=== PATIENT | female | born 1935 | race Caucasian/White ===

== ENCOUNTER → 2016-05-19 | Outpatient (CLI) | payer MEDICARE, BC ==
--- NOTE | 2016-05-19 10:03 | KCIC ---
PROCEDURE DEXA scan 05/19/2016 HISTORY Postmenopausal female. Height loss. TECHNIQUE DEXA of the left hip and left distal forearm was performed. DEXA of the lumbar spine was not performed due to the patient's lumbar fusion. FINDINGS The mean bone mineral density of the left hip is 0.589 grams/centimeters squared. This corresponds to a T-score of-2.9. This is consistent with mild osteoporosis. The mean bone mineral density of the left forearm is 0.351 grams/centimeters squared. This corresponds to a T-score of-4.2. This is consistent with severe osteoporosis. IMPRESSION 1. Mild osteoporosis of the left hip. 2. Severe osteoporosis of the left forearm. According to the world health organization (WHO): Normal: T score at or above -1 Osteopenia: T score between -1 and -2.5 Osteoporosis: T score at or below -2.5 Electronically signed by: Nicola Najera MD (May 19, 2016 10:02:24)
== END | disposition home or self-care (01) ==
LOC: KCIC DEXA 07:57
PROVIDERS: ATTEND Family Medicine
DX: M81.0 Age-related osteoporosis without current pathological fracture (principal); R29.890 Loss of height; M81.8 Other osteoporosis without current pathological fracture
CPT/HCPCS: 77080; 77081

== ENCOUNTER → 2016-07-28 | Outpatient (CLI) | payer MEDICARE, BC ==
--- NOTE | 2016-07-28 15:40 | KCIC ---
Two-view chest. Indication:Reason For StudyReason: SMOKER, LEFT ARM PAIN, 50 LB WEIGHT LOSS X 1 YEAR / Spl. Instructions: / History: FINDINGS: There is widening of the AP diameter of the chest compatible with obstructive lung disease. No pleural effusion or consolidation. Heart size is normal. Pulmonary vasculature is within normal limits. No pneumothorax. There are postsurgical changes of a median sternotomy. Impression: There is radiographic evidence of COPD with no evidence for heart failure or pneumonia. Electronically signed by: Idris Celestin (Jul 28, 2016 15:38:48)
== END | disposition home or self-care (01) ==
LOC: KCIC 14:50
PROVIDERS: ATTEND Nurse Practitioner Family
DX: J44.9 Chronic obstructive pulmonary disease, unspecified (principal); F17.200 Nicotine dependence, unspecified, uncomplicated; R63.4 Abnormal weight loss
CPT/HCPCS: 71020

== ENCOUNTER 2016-12-18 12:56 | Inpatient (IN) | payer MEDICARE, BC ==
[~2016-12-18] VITALS: Ht 144.8 cm; Wt 41.9 kg
[2016-12-18] MEDS ORDERED: methylPREDNISolone SOD SUCC PF 125 MG/2 ML VIAL. IV ONE (13:15)
[2016-12-18] MEDS ORDERED: ALBUTEROL SULFATE 2.5 MG/3 ML NEBU. NEB ONE (13:15)
[2016-12-18] MEDS ORDERED: BENZONATATE 100 MG CAPSULE. PO ONE (13:15)
[2016-12-18] MEDS ORDERED: IV NORMAL SALINE 1000ML BAG 1,000 ML IV ONE (13:15)
--- NOTE | 2016-12-18 13:17 | EKG ---
[facility] [address] [place] [address] Test Date: 2016-12-18 Test Time: 13:10:12 Pat Name: LISA GALVEZ Department: Room: Gender: Female Patient Safety Coordinator: : 1935 Requested By: BENTON JACK Order Number: [id number] Reading MD: Kevin Patel Measurements Intervals [place] Rate: 85 P: 63 NC: 162 QRS: 71 QRSD: 134 T: 62 QT: 380 QTc: 458 Interpretive Statements SINUS RHYTHM S1,S2,S3 PATTERN RIGHT BUNDLE BRANCH BLOCK ABNORMAL ECG RI6.01 No previous ECG available for comparison Electronically Signed On 12-18-2016 16:53:00 CDT by Kevin Patel
--- NOTE | 2016-12-18 13:23 | PHYS DOC ---
Adult General Chief Complaint Chief Complaint: SHORTNESS OF BREATH HPI HPI Patient is a 81 year old female presenting to the emergency department via EMS for evaluation of shortness of breath. She was at her primary care provider appointment for evaluation of a cough. She says that her grandson drove her and she was quite hypoxic at the doctor's office and they were concerned as she was somewhat confused as well. According to the paperwork that was sent with her she has a history of COPD. Patient says that she is on oxygen at home however according to EMS and her paperwork she is not. Patient is somewhat confused but according to EMS she is improving after getting a breathing treatment. On initial O2 saturation on room air here is 94%. She says that she has been coughing mostly nonproductive and she denies any fevers chills chest pain diaphoresis nausea vomiting or diarrhea. She is in no obvious distress with normal vital signs. Review of Systems Review of Systems Constitutional: Denies fever or chills [] Eyes: Denies change in visual acuity, redness, or eye pain [] HENT: Denies nasal congestion or sore throat [] Respiratory: + cough and shortness of breath [] Cardiovascular: No additional information not addressed in HPI [] GI: Denies abdominal pain, nausea, vomiting, bloody stools or diarrhea [] : Denies dysuria or hematuria [] Musculoskeletal: Denies back pain or joint pain [] Integument: Denies rash or skin lesions [] Neurologic: Denies headache, focal weakness or sensory changes [] Current Medications Current Medications Current Medications Medications (Trade) Dose Ordered Sig/Olivier Start Time Stop Time Status Last Admin Dose Admin Albuterol Sulfate (Ventolin Neb Soln) 5 mg 1X ONCE 12/18/16 13:15 12/18/16 14:03 DC 12/18/16 13:42 5 MG Benzonatate (Tessalon Perle) 100 mg 1X ONCE 12/18/16 13:15 12/18/16 14:03 DC 12/18/16 14:08 100 MG Methylprednisolone Sodium Succinate (SOLU-Medrol 125MG VIAL) 125 mg 1X ONCE 12/18/16 13:15 12/18/16 14:03 DC 12/18/16 14:07 125 MG Sodium Chloride 1,000 ml @ 1,000 mls/hr 1X ONCE 12/18/16 13:15 12/18/16 14:14 12/18/16 14:06 1,000 MLS/HR Physical Exam Physical Exam Constitutional: Well developed, well nourished, no acute distress, non-toxic appearance. [] HENT: Normocephalic, atraumatic, bilateral external ears normal, oropharynx moist, no oral exudates, nose normal. [] Eyes: PERRLA, EOMI, conjunctiva normal, no discharge. [] Neck: Normal range of motion, no tenderness, supple, no stridor. [] Cardiovascular:Heart rate regular rhythm, no murmur [] Lungs & Thorax: Bilateral breath sounds diminished with inspiratory and expiratory wheezing. Abdomen: Bowel sounds normal, soft, no tenderness, no masses, no pulsatile masses. [] Skin: Warm, dry, no erythema, no rash. [] Back: No tenderness, no CVA tenderness. [] Extremities: No tenderness, no cyanosis, no clubbing, ROM intact, no edema. [] Neurologic: Alert and oriented X 2, no focal deficits noted. [] Current Patient Data Vital Signs Vital Signs Date Time Temp Pulse Resp B/P (MAP) Pulse Ox O2 Delivery O2 Flow Rate FiO2 12/18/16 13:04 98.0 86 20 153/68 (96) 97 Nasal Cannula 5.0 98.0 Lab Values Laboratory Tests Test 12/18/16 13:01 12/18/16 13:40 O2 Saturation 85 % (92-99) L Arterial Blood pH 7.41 (7.35-7.45) Arterial Blood pCO2 at Patient Temp 39 mmHg (35-46) Arterial Blood pO2 at Patient Temp 49 mmHg (65-108) *L Arterial Blood HCO3 24 mmol/L (21-28) Arterial Blood Base Excess -1 mmol/L (-3-3) Oxyhemoglobin 84.4 % Methemoglobin 0.3 % (0.0-1.9) Carbon Monoxide, Quantitative 0.4 % (0.0-1.9) FiO2 21 White Blood Count 6.1 x10^3/uL (4.0-11.0) Red Blood Count 4.35 x10^6/uL (3.50-5.40) Hemoglobin 13.5 g/dL (12.0-15.5) Hematocrit 41.8 % (36.0-47.0) Mean Corpuscular Volume 96 fL (79-100) Mean Corpuscular Hemoglobin 31 pg (25-35) Mean Corpuscular Hemoglobin Concent 32 g/dL (31-37) Red Cell Distribution Width 13.3 % (11.5-14.5) Platelet Count 183 x10^3/uL (140-400) Neutrophils (%) (Auto) 64 % (31-73) Lymphocytes (%) (Auto) 14 % (24-48) L Monocytes (%) (Auto) 22 % (0-9) H Eosinophils (%) (Auto) 0 % (0-3) Basophils (%) (Auto) 0 % (0-3) Neutrophils # (Auto) 3.9 x10^3uL (1.8-7.7) Lymphocytes # (Auto) 0.8 x10^3/uL (1.0-4.8) L Monocytes # (Auto) 1.3 x10^3/uL (0.0-1.1) H Eosinophils # (Auto) 0.0 x10^3/uL (0.0-0.7) Basophils # (Auto) 0.0 x10^3/uL (0.0-0.2) Platelet Estimate Pending Prothrombin Time 14.7 SEC (11.7-14.0) H Prothrombin Time INR 1.2 (0.8-1.1) H PTT 31 SEC (24-38) Sodium Level 134 mmol/L (136-145) L Potassium Level 3.9 mmol/L (3.5-5.1) Chloride Level 99 mmol/L (98-107) Carbon Dioxide Level 29 mmol/L (21-32) Anion Gap 6 (6-14) Blood Urea Nitrogen 23 mg/dL (7-20) H Creatinine 0.9 mg/dL (0.6-1.0) Estimated GFR (Cockcroft-Gault) 59.9 BUN/Creatinine Ratio 26 (6-20) H Glucose Level 132 mg/dL (70-99) H Lactic Acid Level 1.5 mmol/L (0.4-2.0) Calcium Level 9.6 mg/dL (8.5-10.1) Magnesium Level 2.2 mg/dL (1.8-2.4) Total Bilirubin 0.7 mg/dL (0.2-1.0) Aspartate Amino Transferase (AST) 40 U/L (15-37) H Alanine Aminotransferase (ALT) 38 U/L (14-59) Alkaline Phosphatase 59 U/L (46-116) Troponin I Quantitative < 0.017 ng/mL (0.000-0.055) Total Protein 7.4 g/dL (6.4-8.2) Albumin 3.1 g/dL (3.4-5.0) L Albumin/Globulin Ratio 0.7 (1.0-1.7) L Laboratory Tests 12/18/16 13:40 Laboratory Tests 12/18/16 13:40 EKG EKG Sinus rhythm at 85 bpm with normal axis no obvious ST elevation or depression with inverted T waves in leads V3 and significant for a right bundle-branch block. Radiology/Procedures Radiology/Procedures Normal heart size normal mediastinum and no obvious free air pneumothorax or opacity however her lung rizo have diffuse interstitial fibrosis appearing. Course & Med Decision Making Course & Med Decision Making Patient is persistently hypoxic on room air with a PO2 of 49 and an oxygen saturation of 85% on room air. She is still short of breath and likely will require oxygen at home. Will admit for further breathing treatments steroids reassessment and treatment. Patient and grandson aware and agreeable with plan. Dragon Disclaimer Dragon Disclaimer This electronic medical record was generated, in whole or in part, using a voice recognition dictation system. Departure Departure Impression: Primary Impression: COPD exacerbation Additional Impressions: Hypoxia Elevated brain natriuretic peptide (BNP) level Disposition: 09 ADMITTED INPATIENT Admitting Physician: Paula Mccarthy Condition: STABLE Referrals: SIXTO COLLADO MD (PCP) Problem Qualifiers BENTON JACK DO Dec 18, 2016 13:23
[2016-12-18 13:33] LABS: BASE EXCESS COOX -1 mmol/L (-3-3); CARBON MONOXIDE 0.4 % (0.0-1.9); HCO3 COOX 24 mmol/L (21-28); METHEMOGLOBIN 0.3 % (0.0-1.9); OXYHEMOGLOBIN 84.4 %; PCO2 COOX 39 mmHg (35-46); PH COOX 7.41 (7.35-7.45); SAT O2 COOX 85 % (92-99); TOTAL HEMOGLOBIN 13.6 g/dL
[2016-12-18 13:38] LABS: PO2 COOX 49 mmHg (65-108)
[2016-12-18 13:39] LABS: FIO2 COOX 21
[2016-12-18] MEDS ORDERED: ONDANSETRON PF 4 MG/2 ML VIAL. IV PRN (13:45)
[2016-12-18 13:51] LABS: BASO % 0 % (0-3); EOS % 0 % (0-3); HEMATOCRIT 41.8 % (36.0-47.0); HEMOGLOBIN 13.5 g/dL (12.0-15.5); LYMPH # 0.8 x10^3/uL (1.0-4.8); LYMPH % 14 % (24-48); MEAN CORPUSCULAR HEMOGLOBIN 31 pg (25-35); MEAN CORPUSCULAR HGB CONC 32 g/dL (31-37); MEAN CORPUSCULAR VOLUME 96 fL (79-100); MONO % 22 % (0-9); NEUT % 64 % (31-73); PLATELET COUNT 183 x10^3/uL (140-400); RED BLOOD COUNT 4.35 x10^6/uL (3.50-5.40); RED CELL DISTRIBUTION WIDTH 13.3 % (11.5-14.5); WHITE BLOOD COUNT 6.1 x10^3/uL (4.0-11.0)
[2016-12-18 13:59] LABS: CALCIUM 9.6 mg/dL (8.5-10.1); CREATININE 0.9 mg/dL (0.6-1.0); GFR 59.9; POTASSIUM 3.9 mmol/L (3.5-5.1)
[2016-12-18 14:00] LABS: INR 1.2 (0.8-1.1); PROTHROMBIN TIME PATIENT 14.7 SEC (11.7-14.0)
[2016-12-18 14:08] LABS: ALBUMIN 3.1 g/dL (3.4-5.0); ALBUMIN/GLOBULIN RATIO 0.7 (1.0-1.7); MAGNESIUM 2.2 mg/dL (1.8-2.4); TOTAL BILIRUBIN 0.7 mg/dL (0.2-1.0); TOTAL PROTEIN 7.4 g/dL (6.4-8.2)
--- NOTE | 2016-12-18 14:14 | RAD ---
Portable chest, 12/18/2016: History: Cough, congestion, hypoxia Comparison is made to a study from 07/28/2016. There has been a previous median sternotomy. The heart size is normal. The pulmonary vascularity is now prominent. Increased interstitial markings have developed with prominence of the minor fissure on the right. No pleural fluid is seen. IMPRESSION: Vascular congestion has developed with interstitial prominence suggesting mild interstitial pulmonary edema. An interstitial form of pneumonia is less likely.
--- NOTE | 2016-12-18 14:48 | ACF ---
Admit Criteria Forms Admit Criteria Forms Admit Criteria Forms COPD Clinical Indications for Admission to Inpatient Care (Place 'X' for any and all applicable criteria): Admission is indicated for ANY ONE of the following (1)(2)(3): [ ]I. Acute exacerbation by high-risk comorbidity (e.g., pneumonia, dysrhythmia, heart failure, pleural effusion, pneumothorax) or severe underlying COPD (e.g., steroid dependent) [X ]II. Inpatient admission required rather than observation care (see Chronic Obstructive Pulmonary Disease: Observation Care) because of ANY ONE of the following: [X ]a) New or pre-existing signs or symptoms of COPD (eg, dyspnea or Tachypnea at rest or with minimal activity) that persist despite outpatient and observation care treatment [ ]b) New-onset hypoxemia (room air SaO2 less than 90%, PO2 less than 60 mm Hg (8.0 kPa)) that persists despite outpatient and observation care treatment [ ]c) Worsening of pre-existing hypoxemia (eg, new or increased requirement for supplemental oxygen to maintain oxygenation at baseline level) that persists despite outpatient and observation care treatment, with oxygen treatment needs performable only in acute inpatient setting [ ]d) Hypercarbia (PCO2 greater than 40 mm Hg (5.3 kPa))-induced respiratory acidosis (pH less than 7.35) that persists despite outpatient and observation care treatment [ ]e) Supplemental oxygen or respiratory treatments for over 24 hours that are performable only in acute inpatient setting [ ]f) Chest tube placement with active evacuation (e.g., suction, drainage) (5) [ ]g) Other condition, treatment or monitoring requiring inpatient admission [ ]III. Planned invasive surgical or diagnostic procedures requiring acute- care hospitalization [ ]IV. Acute respiratory failure (e.g., uncompensated hypercarbia, severe hypoxemia) [ ]V. Severe comorbid condition (e.g., severe steroid myopathy, acute vertebral fracture) that has acutely worsened pulmonary function [ ]. Confusion state, lethargy, obtundation, stupor or coma Extended stay beyond goal length of stay may be needed for (31)(32): [ ]a ) Respiratory Failure. [ ]b) Severe or persisting hypoxemia or hypercarbia [ ]c) Severe or persistent dyspnea [ ]d) Comorbidities (e.g. chronic heart failure, atrial fibrillation with rapid response, pneumonia) [ ]e) Malnutrition The original [employer] content created by [facility] has been revised. The portions of the content which have been revised are identified through the use of italic text or in bold, and [facility] has neither reviewed nor approved the modified material. All other unmodified content is copyright [facility]. Please see references footnoted in the original [facility] edition 2016 RAJEEV SANTOYO Dec 18, 2016 14:48
[2016-12-18 14:50] LABS: PLT ESTIMATE ADEQUATE (ADEQUATE); TOXIC GRANULATION PRESENT; TOXIC VACUOLATION PRESENT
[2016-12-18 15:00] VITALS: BP 141/65
[2016-12-18] MEDS ORDERED: SALIVA STIMULANT AGENT 44ML SPRAY BOTTLE. PO PRN ×2 (15:45→16:00)
--- NOTE | 2016-12-18 15:59 | PDOC1 ---
History and Physical Date of Admission Date of Admission DATE: 12/18/16 TIME: 15:51 Identification/Chief Complaint Chief Complaint dyspnea, cough, weakness Problems: Source Source: Caregiver (granddaughter), Chart review, Patient History of Present Illness History of Present Illness Patient is a 81 year old female admit from ER, acute shortness of breath, 1 day of marked symptoms, but she complains of over a week of dyspnea with progressive cough, cough productive of sputum. She was at Primary care today for symptoms, who called EMS, hypoxic inthe field and confused there, but she feels much improved here already, pulm tx and 02 placed, Sa02 in the field reported inthe 70s She reports a history of COPD, no recent exac. has nebs at home, but have not helped, she reports no prior need for 02 ABG showed sa02 85%, Pa02 49 Past Medical History Cardiovascular: HTN Pulmonary: COPD GI: No pertinent hx Musculoskeletal: low back pain, Muscle atrophy, Weakness Past Surgical History Past Surgical History: No pertinent history Social History Smoke: Quit ALCOHOL: none Drugs: None Current Problem List Problem List Problems Medical Problems: (1) COPD exacerbation Status: Acute (2) Elevated brain natriuretic peptide (BNP) level Status: Acute (3) Hypoxia Status: Acute Problems: Current Medications Current Medications Current Medications Sodium Chloride 1,000 ml @ 1,000 mls/hr 1X ONCE IV Last administered on 14:06; Start 12/18/16 at 13:15; Stop 12/18/16 at 14:14; Status DC Albuterol Sulfate (Ventolin Neb Soln) 5 mg 1X ONCE NEB Last administered on 13:42; Start 12/18/16 at 13:15; Stop 12/18/16 at 14:03; Status DC Methylprednisolone Sodium Succinate (SOLU-Medrol 125MG VIAL) 125 mg 1X ONCE IV Last administered on 12/18/16 14:07; Start 12/18/16 at 13:15; Stop 12/18/16 at 14:03; Status DC Benzonatate (Tessalon Perle) 100 mg 1X ONCE PO Last administered on 12/18/16 14:08; Start 12/18/16 at 13:15; Stop 12/18/16 at 14:03; Status DC Levofloxacin/ Dextrose 100 ml @ 100 mls/hr 1X ONCE IV Last administered on 14:07; Start 12/18/16 at 13:45; Stop 12/18/16 at 14:44; Status DC Ondansetron HCl (Zofran) 4 mg PRN Q8HRS PRN IV NAUSEA/VOMITING Last administered on 12/18/16 14:07; Start 12/18/16 at 13:45; Stop 12/19/16 at 13:44 Albuterol/ Ipratropium (Duoneb) 3 ml Q4HRS W/A NEB ; Start 12/18/16 at 18:00 Budesonide (Pulmicort) 0.5 mg RTBID NEB ; Start 12/18/16 at 20:00 Levofloxacin (Levaquin) 500 mg DAILY06 PO ; Start 12/18/16 at 15:00 Guaifenesin (Robitussin Dm) 10 ml PRN Q6HRS PRN PO COUGH; Start 12/18/16 at 14: 45 Benzonatate (Tessalon Perle) 100 mg PRN TID PRN PO cough; Start 12/18/16 at 14: 45 Saliva Substitute (Biotene Moisturizing Mouth) 2 spray PRN Q15MIN PRN PO DRY MOUTH; Start 12/18/16 at 15:45 Allergies Allergies: Coded Allergies: morphine (Verified Adverse Reaction, Intermediate, SYNCOPE , 12/18/16) ROS General: YES: Chills, Fatigue, Malaise, Appetite, No: Night Sweats, Other PSYCHOLOGICAL ROS: No: Anxiety, Behavioral Disorder, Concentration difficultie , Decreased libido, Depression, Disorientation, Hallucinations, Hostility, Irritablity, Memory difficulties, Mood Swings, Obsessive thoughts, Other Eyes: No Blurry vision, No Decreased vision, No Double vision, No Dry eyes, No Excessive tearing, No Eye Pain, No Itchy Eyes, No Loss of vision, No Photophobia , No Scotomata, No Uses contacts, No Uses glasses, No Other HEENT: YES: Nasal congestion, No: Heacaches, Visual Changes, Hearing change, Nasal discharge, Oral lesions , Sinus pain, Sore Throat, Epistaxis, Sneezing, Snoring, Tinnitus, Vertigo, Vocal changes, Other Respiratory: YES: Cough, SOB with excertion, Sputum Changes, Tachypnea, Wheezing, No: Hemoptysis, Orthopnea, Pleuritic Pain, Shortness of breath, Stridor, Other Cardiovascular: No Chest Pain, No Palpitations, No Orthopnea, No Paroxysmal Noc. Dyspnea, No Edema, No Lt Headedness, No Other Gastrointestinal: No Nausea, No Vomiting, No Abdominal Pain, No Diarrhea, No Constipation, No Melena, No Hematochezia, No Other Genitourinary: No Dysuria, No Frequency, No Incontinence, No Hematuria, No Retention, No Discharge, No Urgency, No Pain, No Flank Pain, No Other, No , No , No , No , No , No , No Musculoskeletal: No Gait Disturbance, No Joint Pain, No Joint Stiffness, No Joint Swelling, No Muscle Pain, No Muscular Weakness, No Pain In:, No Swelling In:, No Other Neurological: Yes Gait Disturbance (weakness), No Behavorial Changes, No Bowel/Bladder ControlChng, No Confusion, No Dizziness, No Headaches, No Impaired Coord/balance, No Memory Loss, No Numbness/ Tingling, No Seizures, No Speech Problems, No Tremors, No Visual Changes, No Weakness, No Other Skin: No Dry Skin, No Eczema, No Hair Changes, No Lumps, No Mole Changes, No Mottling, No Nail Changes, No Pruritus, No Rash, No Skin Lesion Changes, No Other, No Acne Physical Exam General: Alert, Oriented X3, Cooperative, mild distress HEENT: PERRLA, EOMI, Mucous membr. moist/pink Lungs: Clear to auscultation, Normal air movement Heart: RRR, no gallops, no murmurs Abdomen: Normal bowel sounds, Soft (very thin) Rectal Exam: not examined Extremities: No clubbing, No edema, Normal pulses, Other (muscle wasting) Skin: No breakdown, No significant lesion Neuro: Normal gait, Cranial nerves 3-12 NL Psych/Mental Status: Mood NL Vitals Vitals Vital Signs Date Time Temp Pulse Resp B/P (MAP) Pulse Ox O2 Delivery O2 Flow Rate FiO2 12/18/16 15:00 98.1 98 18 141/65 (90) 90 Nasal Cannula 3.0 98.1 Labs Labs Laboratory Tests Test 12/18/16 13:01 12/18/16 13:40 O2 Saturation 85 % (92-99) Arterial Blood pH 7.41 (7.35-7.45) Arterial Blood pCO2 at Patient Temp 39 mmHg (35-46) Arterial Blood pO2 at Patient Temp 49 mmHg (65-108) Arterial Blood HCO3 24 mmol/L (21-28) Arterial Blood Base Excess -1 mmol/L (-3-3) Oxyhemoglobin 84.4 % Methemoglobin 0.3 % (0.0-1.9) Carbon Monoxide, Quantitative 0.4 % (0.0-1.9) FiO2 21 White Blood Count 6.1 x10^3/uL (4.0-11.0) Red Blood Count 4.35 x10^6/uL (3.50-5.40) Hemoglobin 13.5 g/dL (12.0-15.5) Hematocrit 41.8 % (36.0-47.0) Mean Corpuscular Volume 96 fL (79-100) Mean Corpuscular Hemoglobin 31 pg (25-35) Mean Corpuscular Hemoglobin Concent 32 g/dL (31-37) Red Cell Distribution Width 13.3 % (11.5-14.5) Platelet Count 183 x10^3/uL (140-400) Neutrophils (%) (Auto) 64 % (31-73) Lymphocytes (%) (Auto) 14 % (24-48) Monocytes (%) (Auto) 22 % (0-9) Eosinophils (%) (Auto) 0 % (0-3) Basophils (%) (Auto) 0 % (0-3) Neutrophils # (Auto) 3.9 x10^3uL (1.8-7.7) Lymphocytes # (Auto) 0.8 x10^3/uL (1.0-4.8) Monocytes # (Auto) 1.3 x10^3/uL (0.0-1.1) Eosinophils # (Auto) 0.0 x10^3/uL (0.0-0.7) Basophils # (Auto) 0.0 x10^3/uL (0.0-0.2) Segmented Neutrophils % 37 % (35-66) Band Neutrophils % 33 % (0-9) Lymphocytes % 15 % (24-48) Monocytes % 14 % (0-10) Metamyelocytes % 1 % (0-0) Toxic Granulation Present Toxic Vacuolation Present Platelet Estimate Adequate (ADEQUATE) Large Platelets Present Prothrombin Time 14.7 SEC (11.7-14.0) Prothromb Time International Ratio 1.2 (0.8-1.1) Activated Partial Thromboplast Time 31 SEC (24-38) Sodium Level 134 mmol/L (136-145) Potassium Level 3.9 mmol/L (3.5-5.1) Chloride Level 99 mmol/L (98-107) Carbon Dioxide Level 29 mmol/L (21-32) Anion Gap 6 (6-14) Blood Urea Nitrogen 23 mg/dL (7-20) Creatinine 0.9 mg/dL (0.6-1.0) Estimated GFR (Cockcroft-Gault) 59.9 BUN/Creatinine Ratio 26 (6-20) Glucose Level 132 mg/dL (70-99) Lactic Acid Level 1.5 mmol/L (0.4-2.0) Calcium Level 9.6 mg/dL (8.5-10.1) Magnesium Level 2.2 mg/dL (1.8-2.4) Total Bilirubin 0.7 mg/dL (0.2-1.0) Aspartate Amino Transf (AST/SGOT) 40 U/L (15-37) Alanine Aminotransferase (ALT/SGPT) 38 U/L (14-59) Alkaline Phosphatase 59 U/L (46-116) Troponin I Quantitative < 0.017 ng/mL (0.000-0.055) XL-Npe-X-Type Natriuretic Peptide 617 pg/mL (0-449) Total Protein 7.4 g/dL (6.4-8.2) Albumin 3.1 g/dL (3.4-5.0) Albumin/Globulin Ratio 0.7 (1.0-1.7) Laboratory Tests Test 12/18/16 13:01 12/18/16 13:40 O2 Saturation 85 % (92-99) Arterial Blood pH 7.41 (7.35-7.45) Arterial Blood pCO2 at Patient Temp 39 mmHg (35-46) Arterial Blood pO2 at Patient Temp 49 mmHg (65-108) Arterial Blood HCO3 24 mmol/L (21-28) Arterial Blood Base Excess -1 mmol/L (-3-3) Oxyhemoglobin 84.4 % Methemoglobin 0.3 % (0.0-1.9) Carbon Monoxide, Quantitative 0.4 % (0.0-1.9) FiO2 21 White Blood Count 6.1 x10^3/uL (4.0-11.0) Red Blood Count 4.35 x10^6/uL (3.50-5.40) Hemoglobin 13.5 g/dL (12.0-15.5) Hematocrit 41.8 % (36.0-47.0) Mean Corpuscular Volume 96 fL (79-100) Mean Corpuscular Hemoglobin 31 pg (25-35) Mean Corpuscular Hemoglobin Concent 32 g/dL (31-37) Red Cell Distribution Width 13.3 % (11.5-14.5) Platelet Count 183 x10^3/uL (140-400) Neutrophils (%) (Auto) 64 % (31-73) Lymphocytes (%) (Auto) 14 % (24-48) Monocytes (%) (Auto) 22 % (0-9) Eosinophils (%) (Auto) 0 % (0-3) Basophils (%) (Auto) 0 % (0-3) Neutrophils # (Auto) 3.9 x10^3uL (1.8-7.7) Lymphocytes # (Auto) 0.8 x10^3/uL (1.0-4.8) Monocytes # (Auto) 1.3 x10^3/uL (0.0-1.1) Eosinophils # (Auto) 0.0 x10^3/uL (0.0-0.7) Basophils # (Auto) 0.0 x10^3/uL (0.0-0.2) Segmented Neutrophils % 37 % (35-66) Band Neutrophils % 33 % (0-9) Lymphocytes % 15 % (24-48) Monocytes % 14 % (0-10) Metamyelocytes % 1 % (0-0) Toxic Granulation Present Toxic Vacuolation Present Platelet Estimate Adequate (ADEQUATE) Large Platelets Present Prothrombin Time 14.7 SEC (11.7-14.0) Prothromb Time International Ratio 1.2 (0.8-1.1) Activated Partial Thromboplast Time 31 SEC (24-38) Sodium Level 134 mmol/L (136-145) Potassium Level 3.9 mmol/L (3.5-5.1) Chloride Level 99 mmol/L (98-107) Carbon Dioxide Level 29 mmol/L (21-32) Anion Gap 6 (6-14) Blood Urea Nitrogen 23 mg/dL (7-20) Creatinine 0.9 mg/dL (0.6-1.0) Estimated GFR (Cockcroft-Gault) 59.9 BUN/Creatinine Ratio 26 (6-20) Glucose Level 132 mg/dL (70-99) Lactic Acid Level 1.5 mmol/L (0.4-2.0) Calcium Level 9.6 mg/dL (8.5-10.1) Magnesium Level 2.2 mg/dL (1.8-2.4) Total Bilirubin 0.7 mg/dL (0.2-1.0) Aspartate Amino Transf (AST/SGOT) 40 U/L (15-37) Alanine Aminotransferase (ALT/SGPT) 38 U/L (14-59) Alkaline Phosphatase 59 U/L (46-116) Troponin I Quantitative < 0.017 ng/mL (0.000-0.055) KN-Jfi-R-Type Natriuretic Peptide 617 pg/mL (0-449) Total Protein 7.4 g/dL (6.4-8.2) Albumin 3.1 g/dL (3.4-5.0) Albumin/Globulin Ratio 0.7 (1.0-1.7) VTE Prophylaxis Ordered VTE Prophylaxis Devices: No VTE Pharmacological Prophylaxi: Yes Assessment/Plan Assessment/Plan Acute hypoxic respiratory failure chronic hypercarbia COPD with acute bronchitis, sputum, dyspnea, on , PULM consult, steroids, nebs abx check echo for completeness mild/moderate malnutrition, BMI < 17 weakness/debility, PT and OT xerostomia, biotene CHRISTIANO MAGAÑA MD Dec 18, 2016 15:59
[2016-12-18 16:02] VITALS: BP 141/65
[2016-12-18] MEDS: IPRATRPIUM/ALBUTEROL 0.5/2.5MG 3 ML NEBU. NEB SCH ×2 (16:15→19:52)
[2016-12-18] MEDS ORDERED: TIOT18CA IH (16:16)
[2016-12-18] MEDS ORDERED: SIMV40TA3 PO (16:16)
[2016-12-18] MEDS ORDERED: LEVO75TA5 PO (16:16)
[2016-12-18] MEDS ORDERED: ALEN70TA3 PO (16:16)
[2016-12-18] MEDS ORDERED: BUDE10.2 IH (16:16)
[2016-12-18] MEDS: ENOXAPARIN 30 MG/0.3 ML SYRINGE. SQ SCH (16:44)
--- NOTE | 2016-12-18 16:59 | CARD ---
APPROVED REPORT EXAM: Two-dimensional and M-mode echocardiogram with Doppler and color Doppler. Other Information Quality : Good INDICATION COPD Congestive Heart Failure 2D DIMENSIONS RVDd2.4 (2.9-3.5cm)Left Atrium(2D)2.7 (1.6-4.0cm) IVSd0.9 (0.7-1.1cm)Aortic Root(2D)2.0 (2.0-3.7cm) LVDd3.7 (3.9-5.9cm)LVOT Diameter1.9 (1.8-2.4cm) PWd0.8 (0.7-1.1cm)LVDs2.3 (2.5-4.0cm) FS (%) 30.0 %SV39.9 ml LVEF(%)60.0 (>50%) Aortic Valve AoV Peak Lemuel.101.7cm/sAoV VTI17.5cm AO Peak GR.4.1mmHgLVOT VTI 19.31cm AO Mean GR.2mmHgAVA (VTI)3.00cm2 Mitral Valve MV E Khmlgbdp24.9cm/sMV DECEL [id number] MV A Enyjeeys49.5cm/sE/A Ratio1.0 TDI Lateral E' P. V9.53cm/sMedial E' P. V6.24cm/s E/Lateral E'9.6E/Medial E'14.7 Tricuspid Valve TR P. Mplnyhqr145dx/sTR Peak Gr.31mmHg LEFT VENTRICLE The left ventricle is normal size. There is normal left ventricular wall thickness. The left ventricu lar systolic function is normal and the ejection fraction is within normal range. The Ejection Fracti on is 60-65%. There is normal LV segmental wall motion. Transmitral Doppler flow pattern is Grade I-a bnormal relaxation pattern. RIGHT VENTRICLE The right ventricle is normal size. The right ventricular systolic function is normal. ATRIA The left atrium size is normal. The right atrium size is normal. The interatrial septum is intact wit h no evidence for an atrial septal defect or patent foramen ovale as noted on 2-D or Doppler imaging. AORTIC VALVE The aortic valve is calcified but opens well. Doppler and Color Flow revealed no significant aortic r egurgitation. There is no significant aortic valvular stenosis. MITRAL VALVE The mitral valve is normal in structure and function. There is no evidence of mitral valve prolapse. There is no mitral valve stenosis. Doppler and Color-flow revealed eccentric mild mitral regurgitatio n. TRICUSPID VALVE The tricuspid valve is normal in structure and function. Doppler and Color Flow revealed mild tricusp id regurgitation. The PA pressure was estimated at 34 mmHg. There is no tricuspid valve stenosis. PULMONIC VALVE The pulmonary valve is normal in structure and function. Doppler and Color Flow revealed no pulmonic valvular regurgitation. There is no pulmonic valvular stenosis. GREAT VESSELS The aortic root is normal in size. The ascending aorta is normal in size. The IVC is normal in size a nd collapses >50% with inspiration. PERICARDIAL EFFUSION There is no evidence of significant pericardial effusion. Critical Notification Critical Value: No <Conclusion> The left ventricle is normal size. The left ventricular systolic function is normal and the ejection fraction is within normal range. The Ejection Fraction is 60-65%. There is no significant aortic valvular stenosis. Doppler and Color Flow revealed no significant aortic regurgitation. Doppler and Color-flow revealed eccentric mild mitral regurgitation. Doppler and Color Flow revealed mild tricuspid regurgitation. The PA pressure was estimated at 34 mmHg.
--- NOTE | 2016-12-18 17:40 | PDOC ---
PULMONARY PROGRESS NOTES Vitals Vital Signs Date Time Temp Pulse Resp B/P (MAP) Pulse Ox O2 Delivery O2 Flow Rate FiO2 12/18/16 16:17 91 Nasal Cannula 3.0 12/18/16 16:02 98.1 98 141/65 (90) 98.1 12/18/16 15:00 18 Labs Laboratory Tests Test 12/18/16 13:01 12/18/16 13:40 O2 Saturation 85 % (92-99) Arterial Blood pH 7.41 (7.35-7.45) Arterial Blood pCO2 at Patient Temp 39 mmHg (35-46) Arterial Blood pO2 at Patient Temp 49 mmHg (65-108) Arterial Blood HCO3 24 mmol/L (21-28) Arterial Blood Base Excess -1 mmol/L (-3-3) Oxyhemoglobin 84.4 % Methemoglobin 0.3 % (0.0-1.9) Carbon Monoxide, Quantitative 0.4 % (0.0-1.9) FiO2 21 White Blood Count 6.1 x10^3/uL (4.0-11.0) Red Blood Count 4.35 x10^6/uL (3.50-5.40) Hemoglobin 13.5 g/dL (12.0-15.5) Hematocrit 41.8 % (36.0-47.0) Mean Corpuscular Volume 96 fL (79-100) Mean Corpuscular Hemoglobin 31 pg (25-35) Mean Corpuscular Hemoglobin Concent 32 g/dL (31-37) Red Cell Distribution Width 13.3 % (11.5-14.5) Platelet Count 183 x10^3/uL (140-400) Neutrophils (%) (Auto) 64 % (31-73) Lymphocytes (%) (Auto) 14 % (24-48) Monocytes (%) (Auto) 22 % (0-9) Eosinophils (%) (Auto) 0 % (0-3) Basophils (%) (Auto) 0 % (0-3) Neutrophils # (Auto) 3.9 x10^3uL (1.8-7.7) Lymphocytes # (Auto) 0.8 x10^3/uL (1.0-4.8) Monocytes # (Auto) 1.3 x10^3/uL (0.0-1.1) Eosinophils # (Auto) 0.0 x10^3/uL (0.0-0.7) Basophils # (Auto) 0.0 x10^3/uL (0.0-0.2) Segmented Neutrophils % 37 % (35-66) Band Neutrophils % 33 % (0-9) Lymphocytes % 15 % (24-48) Monocytes % 14 % (0-10) Metamyelocytes % 1 % (0-0) Toxic Granulation Present Toxic Vacuolation Present Platelet Estimate Adequate (ADEQUATE) Large Platelets Present Prothrombin Time 14.7 SEC (11.7-14.0) Prothromb Time International Ratio 1.2 (0.8-1.1) Activated Partial Thromboplast Time 31 SEC (24-38) Sodium Level 134 mmol/L (136-145) Potassium Level 3.9 mmol/L (3.5-5.1) Chloride Level 99 mmol/L (98-107) Carbon Dioxide Level 29 mmol/L (21-32) Anion Gap 6 (6-14) Blood Urea Nitrogen 23 mg/dL (7-20) Creatinine 0.9 mg/dL (0.6-1.0) Estimated GFR (Cockcroft-Gault) 59.9 BUN/Creatinine Ratio 26 (6-20) Glucose Level 132 mg/dL (70-99) Lactic Acid Level 1.5 mmol/L (0.4-2.0) Calcium Level 9.6 mg/dL (8.5-10.1) Magnesium Level 2.2 mg/dL (1.8-2.4) Total Bilirubin 0.7 mg/dL (0.2-1.0) Aspartate Amino Transf (AST/SGOT) 40 U/L (15-37) Alanine Aminotransferase (ALT/SGPT) 38 U/L (14-59) Alkaline Phosphatase 59 U/L (46-116) Troponin I Quantitative < 0.017 ng/mL (0.000-0.055) BQ-Ndn-G-Type Natriuretic Peptide 617 pg/mL (0-449) Total Protein 7.4 g/dL (6.4-8.2) Albumin 3.1 g/dL (3.4-5.0) Albumin/Globulin Ratio 0.7 (1.0-1.7) Laboratory Tests Test 12/18/16 13:01 12/18/16 13:40 O2 Saturation 85 % (92-99) Arterial Blood pH 7.41 (7.35-7.45) Arterial Blood pCO2 at Patient Temp 39 mmHg (35-46) Arterial Blood pO2 at Patient Temp 49 mmHg (65-108) Arterial Blood HCO3 24 mmol/L (21-28) Arterial Blood Base Excess -1 mmol/L (-3-3) Oxyhemoglobin 84.4 % Methemoglobin 0.3 % (0.0-1.9) Carbon Monoxide, Quantitative 0.4 % (0.0-1.9) FiO2 21 White Blood Count 6.1 x10^3/uL (4.0-11.0) Red Blood Count 4.35 x10^6/uL (3.50-5.40) Hemoglobin 13.5 g/dL (12.0-15.5) Hematocrit 41.8 % (36.0-47.0) Mean Corpuscular Volume 96 fL (79-100) Mean Corpuscular Hemoglobin 31 pg (25-35) Mean Corpuscular Hemoglobin Concent 32 g/dL (31-37) Red Cell Distribution Width 13.3 % (11.5-14.5) Platelet Count 183 x10^3/uL (140-400) Neutrophils (%) (Auto) 64 % (31-73) Lymphocytes (%) (Auto) 14 % (24-48) Monocytes (%) (Auto) 22 % (0-9) Eosinophils (%) (Auto) 0 % (0-3) Basophils (%) (Auto) 0 % (0-3) Neutrophils # (Auto) 3.9 x10^3uL (1.8-7.7) Lymphocytes # (Auto) 0.8 x10^3/uL (1.0-4.8) Monocytes # (Auto) 1.3 x10^3/uL (0.0-1.1) Eosinophils # (Auto) 0.0 x10^3/uL (0.0-0.7) Basophils # (Auto) 0.0 x10^3/uL (0.0-0.2) Segmented Neutrophils % 37 % (35-66) Band Neutrophils % 33 % (0-9) Lymphocytes % 15 % (24-48) Monocytes % 14 % (0-10) Metamyelocytes % 1 % (0-0) Toxic Granulation Present Toxic Vacuolation Present Platelet Estimate Adequate (ADEQUATE) Large Platelets Present Prothrombin Time 14.7 SEC (11.7-14.0) Prothromb Time International Ratio 1.2 (0.8-1.1) Activated Partial Thromboplast Time 31 SEC (24-38) Sodium Level 134 mmol/L (136-145) Potassium Level 3.9 mmol/L (3.5-5.1) Chloride Level 99 mmol/L (98-107) Carbon Dioxide Level 29 mmol/L (21-32) Anion Gap 6 (6-14) Blood Urea Nitrogen 23 mg/dL (7-20) Creatinine 0.9 mg/dL (0.6-1.0) Estimated GFR (Cockcroft-Gault) 59.9 BUN/Creatinine Ratio 26 (6-20) Glucose Level 132 mg/dL (70-99) Lactic Acid Level 1.5 mmol/L (0.4-2.0) Calcium Level 9.6 mg/dL (8.5-10.1) Magnesium Level 2.2 mg/dL (1.8-2.4) Total Bilirubin 0.7 mg/dL (0.2-1.0) Aspartate Amino Transf (AST/SGOT) 40 U/L (15-37) Alanine Aminotransferase (ALT/SGPT) 38 U/L (14-59) Alkaline Phosphatase 59 U/L (46-116) Troponin I Quantitative < 0.017 ng/mL (0.000-0.055) CC-Mmg-Z-Type Natriuretic Peptide 617 pg/mL (0-449) Total Protein 7.4 g/dL (6.4-8.2) Albumin 3.1 g/dL (3.4-5.0) Albumin/Globulin Ratio 0.7 (1.0-1.7) Medications Active Scripts Medications Dose Route/Sig Max Daily Dose Days Date Category Symbicort 160-4.5 Mcg Inhaler (Budesonide/Formoterol Fumarate) 10.2 Gm Hfa.aer.ad 2 Puff IH BID 12/18/16 Reported Spiriva (Tiotropium Weidman) 18 Mcg Cap.w.dev 1 Cap IH DAILY 12/18/16 Reported Levothyroxine Sodium 75 Mcg Tablet 1 Tab PO DAILY 12/18/16 Reported Simvastatin 40 Mg Tablet 1 Tab PO QHS 12/18/16 Reported Fosamax (Alendronate Sodium) 70 Mg Tablet 1 Tab PO WEEKLY 12/18/16 Reported Impression . ACUTE HYPOXEMIC RESP FAILURE SUSPECT MOSTLY ACUTE PULMONARY EDEMA SEE ORDERS THANKS KATHIE WOOTEN MD Dec 18, 2016 17:39
[2016-12-18] MEDS ORDERED: FUROSEMIDE 40 MG TABLET. PO ONE (18:00)
[2016-12-18 18:50] LABS: FREE T4 1.25 ng/dL (0.76-1.46)
[2016-12-18 19:00] VITALS: BP 97/51
[2016-12-18] MEDS ORDERED: AMLO5TAB2 PO (19:00)
[2016-12-18] MEDS ORDERED: LISI40TA PO (19:00)
[2016-12-18] MEDS ORDERED: METO25TA9 PO (19:00)
[2016-12-18] MEDS ORDERED: RALO60TA PO (19:17)
[2016-12-18] MEDS: BUDESONIDE 0.5 MG/2 ML NEBU. NEB SCH (19:51)
[2016-12-18] MEDS: SIMVASTATIN 40 MG TABLET. PO SCH (21:30)
[2016-12-18] MEDS: guaiFENesin DM 200MG/20MG 10 ML SYRUP PO PRN (21:34)
[2016-12-18] MEDS: BENZONATATE 100 MG CAPSULE. PO PRN (21:34)
[2016-12-18 23:02] VITALS: BP 101/54
--- NOTE | 2016-12-19 00:31 | CONS ---
DATE OF CONSULTATION: 12/18/2016 ATTENDING PHYSICIAN: Paula Mccarthy M.D. REASON FOR CONSULTATION: The patient is seen in pulmonary consultation at the request of Dr. Mccarthy for acute respiratory failure, abnormal chest x-ray. HISTORY OF PRESENT ILLNESS: The patient is an 81-year-old who has been feeling ill for the past week or so, increasing shortness of breath, unable to lay down flat, coughing, mostly nonproductive. She states that 3 days ago she felt bad to the point she had poor appetite. She presents with the above complaint. No fever, chills or night sweats. She was found to have saturations of 70% on the field. She was severely hypoxic. She states that she feels so much better now that she has been treated. She has had previous congestive heart failure. She does not know if she takes Lasix. She does take lisinopril at home. She presented with a PaO2 of 49, pCO2 of 39, pH of 7.41 on room air. Chest x-ray was personally reviewed, there is bilateral pulmonary infiltrates compatible with CHF. PAST MEDICAL HISTORY: 1. Remarkable for coronary artery disease, status post coronary artery bypass grafting. 2. COPD, chronic bronchitic type. 3. Hypertension. 4. Muscular atrophy, weakness. PAST SURGICAL HISTORY: Status post coronary artery bypass grafting. SOCIAL HISTORY: She is currently not smoking, denies any alcohol. She does not wear oxygen at home. REVIEW OF SYSTEMS: As indicated above, otherwise a 10-point system was reviewed and negative. FAMILY HISTORY: Noncontributory in this age group. ALLERGIES: TO MORPHINE. PHYSICAL EXAMINATION: VITAL SIGNS: Stable. O2 saturation currently on 3 liters was 91-97%. HEENT: Eyes: The sclerae were nonicteric. NECK: Jugular venous distention was not elevated. No lymphadenopathy. CHEST: Full expansion. LUNGS: Crackles in the bases. No wheezes. CARDIOVASCULAR: Regular rate and rhythm with S1 and S2; no S3. ABDOMEN: Soft, nontender, nondistended. EXTREMITIES: No clubbing, cyanosis or pitting edema. NEUROLOGIC: The patient was awake, alert, following commands. A detailed neuro exam was not performed. LABORATORY AND IMAGING DATA: Reviewed. White count was normal. Hemoglobin and hematocrit were noted. INR was 1.2. Electrolytes were noted. BNP was elevated. Chest x-ray as indicated above. IMPRESSION: 1. Acute hypoxemic respiratory failure secondary to acute congestive heart failure. 2. Acute congestive heart failure. 3. Mild acute exacerbation of chronic obstructive pulmonary disease. 4. Doubt pneumonia. 5. Possible dysphagia and minimal aspiration. 6. Iwsm-jv-vcskasgz protein malnutrition, present upon admission. PLAN: 1. Recommend diuresis. 2. Repeat chest x-ray. 3. Continue steroids for now and Levaquin. 4. Speech eval. 5. A 6-minute walk prior to discharge. 6. Echocardiogram. I do appreciate the privilege in participating in the patient's care. KATHIE WOOTEN MD DR: ALBER/roger JOB#: [id number] / [id number]
[2016-12-19 03:00] VITALS: BP 92/48
[2016-12-19] MEDS: BENZONATATE 100 MG CAPSULE. PO PRN (04:37)
[2016-12-19] MEDS: guaiFENesin DM 200MG/20MG 10 ML SYRUP PO PRN ×2 (04:37→15:29)
[2016-12-19 05:20] LABS: BASO % 0 % (0-3); EOS % 0 % (0-3); HEMATOCRIT 35.7 % (36.0-47.0); HEMOGLOBIN 12.2 g/dL (12.0-15.5); LYMPH # 0.4 x10^3/uL (1.0-4.8); LYMPH % 10 % (24-48); MEAN CORPUSCULAR HEMOGLOBIN 32 pg (25-35); MEAN CORPUSCULAR HGB CONC 34 g/dL (31-37); MEAN CORPUSCULAR VOLUME 94 fL (79-100); MONO % 7 % (0-9); NEUT % 84 % (31-73); PLATELET COUNT 210 x10^3/uL (140-400); RED BLOOD COUNT 3.82 x10^6/uL (3.50-5.40); WHITE BLOOD COUNT 4.5 x10^3/uL (4.0-11.0)
[2016-12-19 05:22] LABS: CALCIUM 8.9 mg/dL (8.5-10.1); GFR 53.1
[2016-12-19] MEDS: LEVOTHYROXINE 75 MCG TABLET PO SCH (06:21)
--- NOTE | 2016-12-19 06:31 | PDOC ---
PULMONARY PROGRESS NOTES Subjective PT FEEL BETTER LESS SOA Vitals Vital Signs Date Time Temp Pulse Resp B/P (MAP) Pulse Ox O2 Delivery O2 Flow Rate FiO2 12/19/16 03:00 98.5 78 19 92/48 (63) 95 Nasal Cannula 3.0 98.5 ROS: No Nausea, No Chest Pain, No Abdominal Pain, No Increase Cough Lungs: Crackles Cardiovascular: S1, S2 Abdomen: Soft Neuro Exam: Alert Extremities: No Edema Skin: Warm Labs Laboratory Tests Test 12/18/16 13:01 12/18/16 13:40 12/19/16 04:00 O2 Saturation 85 % (92-99) Arterial Blood pH 7.41 (7.35-7.45) Arterial Blood pCO2 at Patient Temp 39 mmHg (35-46) Arterial Blood pO2 at Patient Temp 49 mmHg (65-108) Arterial Blood HCO3 24 mmol/L (21-28) Arterial Blood Base Excess -1 mmol/L (-3-3) Oxyhemoglobin 84.4 % Methemoglobin 0.3 % (0.0-1.9) Carbon Monoxide, Quantitative 0.4 % (0.0-1.9) FiO2 21 White Blood Count 6.1 x10^3/uL (4.0-11.0) 4.5 x10^3/uL (4.0-11.0) Red Blood Count 4.35 x10^6/uL (3.50-5.40) 3.82 x10^6/uL (3.50-5.40) Hemoglobin 13.5 g/dL (12.0-15.5) 12.2 g/dL (12.0-15.5) Hematocrit 41.8 % (36.0-47.0) 35.7 % (36.0-47.0) Mean Corpuscular Volume 96 fL (79-100) 94 fL (79-100) Mean Corpuscular Hemoglobin 31 pg (25-35) 32 pg (25-35) Mean Corpuscular Hemoglobin Concent 32 g/dL (31-37) 34 g/dL (31-37) Red Cell Distribution Width 13.3 % (11.5-14.5) 13.0 % (11.5-14.5) Platelet Count 183 x10^3/uL (140-400) 210 x10^3/uL (140-400) Neutrophils (%) (Auto) 64 % (31-73) 84 % (31-73) Lymphocytes (%) (Auto) 14 % (24-48) 10 % (24-48) Monocytes (%) (Auto) 22 % (0-9) 7 % (0-9) Eosinophils (%) (Auto) 0 % (0-3) 0 % (0-3) Basophils (%) (Auto) 0 % (0-3) 0 % (0-3) Neutrophils # (Auto) 3.9 x10^3uL (1.8-7.7) 3.8 x10^3uL (1.8-7.7) Lymphocytes # (Auto) 0.8 x10^3/uL (1.0-4.8) 0.4 x10^3/uL (1.0-4.8) Monocytes # (Auto) 1.3 x10^3/uL (0.0-1.1) 0.3 x10^3/uL (0.0-1.1) Eosinophils # (Auto) 0.0 x10^3/uL (0.0-0.7) 0.0 x10^3/uL (0.0-0.7) Basophils # (Auto) 0.0 x10^3/uL (0.0-0.2) 0.0 x10^3/uL (0.0-0.2) Segmented Neutrophils % 37 % (35-66) Band Neutrophils % 33 % (0-9) Lymphocytes % 15 % (24-48) Monocytes % 14 % (0-10) Metamyelocytes % 1 % (0-0) Toxic Granulation Present Toxic Vacuolation Present Platelet Estimate Adequate (ADEQUATE) Large Platelets Present Prothrombin Time 14.7 SEC (11.7-14.0) Prothromb Time International Ratio 1.2 (0.8-1.1) Activated Partial Thromboplast Time 31 SEC (24-38) Sodium Level 134 mmol/L (136-145) 136 mmol/L (136-145) Potassium Level 3.9 mmol/L (3.5-5.1) 4.0 mmol/L (3.5-5.1) Chloride Level 99 mmol/L (98-107) 102 mmol/L (98-107) Carbon Dioxide Level 29 mmol/L (21-32) 30 mmol/L (21-32) Anion Gap 6 (6-14) 4 (6-14) Blood Urea Nitrogen 23 mg/dL (7-20) 21 mg/dL (7-20) Creatinine 0.9 mg/dL (0.6-1.0) 1.0 mg/dL (0.6-1.0) Estimated GFR (Cockcroft-Gault) 59.9 53.1 BUN/Creatinine Ratio 26 (6-20) Glucose Level 132 mg/dL (70-99) 178 mg/dL (70-99) Lactic Acid Level 1.5 mmol/L (0.4-2.0) Calcium Level 9.6 mg/dL (8.5-10.1) 8.9 mg/dL (8.5-10.1) Magnesium Level 2.2 mg/dL (1.8-2.4) Total Bilirubin 0.7 mg/dL (0.2-1.0) Aspartate Amino Transf (AST/SGOT) 40 U/L (15-37) Alanine Aminotransferase (ALT/SGPT) 38 U/L (14-59) Alkaline Phosphatase 59 U/L (46-116) Troponin I Quantitative < 0.017 ng/mL (0.000-0.055) SM-Wmr-X-Type Natriuretic Peptide 617 pg/mL (0-449) Total Protein 7.4 g/dL (6.4-8.2) Albumin 3.1 g/dL (3.4-5.0) Albumin/Globulin Ratio 0.7 (1.0-1.7) Thyroid Stimulating Hormone (TSH) 1.710 uIU/mL (0.358-3.74) Free Thyroxine 1.25 ng/dL (0.76-1.46) Free Triiodothyronine (T3) pg/mL 1.07 pg/mL (2.18-3.98) Laboratory Tests Test 12/18/16 13:01 12/18/16 13:40 12/19/16 04:00 O2 Saturation 85 % (92-99) Arterial Blood pH 7.41 (7.35-7.45) Arterial Blood pCO2 at Patient Temp 39 mmHg (35-46) Arterial Blood pO2 at Patient Temp 49 mmHg (65-108) Arterial Blood HCO3 24 mmol/L (21-28) Arterial Blood Base Excess -1 mmol/L (-3-3) Oxyhemoglobin 84.4 % Methemoglobin 0.3 % (0.0-1.9) Carbon Monoxide, Quantitative 0.4 % (0.0-1.9) FiO2 21 White Blood Count 6.1 x10^3/uL (4.0-11.0) 4.5 x10^3/uL (4.0-11.0) Red Blood Count 4.35 x10^6/uL (3.50-5.40) 3.82 x10^6/uL (3.50-5.40) Hemoglobin 13.5 g/dL (12.0-15.5) 12.2 g/dL (12.0-15.5) Hematocrit 41.8 % (36.0-47.0) 35.7 % (36.0-47.0) Mean Corpuscular Volume 96 fL (79-100) 94 fL (79-100) Mean Corpuscular Hemoglobin 31 pg (25-35) 32 pg (25-35) Mean Corpuscular Hemoglobin Concent 32 g/dL (31-37) 34 g/dL (31-37) Red Cell Distribution Width 13.3 % (11.5-14.5) 13.0 % (11.5-14.5) Platelet Count 183 x10^3/uL (140-400) 210 x10^3/uL (140-400) Neutrophils (%) (Auto) 64 % (31-73) 84 % (31-73) Lymphocytes (%) (Auto) 14 % (24-48) 10 % (24-48) Monocytes (%) (Auto) 22 % (0-9) 7 % (0-9) Eosinophils (%) (Auto) 0 % (0-3) 0 % (0-3) Basophils (%) (Auto) 0 % (0-3) 0 % (0-3) Neutrophils # (Auto) 3.9 x10^3uL (1.8-7.7) 3.8 x10^3uL (1.8-7.7) Lymphocytes # (Auto) 0.8 x10^3/uL (1.0-4.8) 0.4 x10^3/uL (1.0-4.8) Monocytes # (Auto) 1.3 x10^3/uL (0.0-1.1) 0.3 x10^3/uL (0.0-1.1) Eosinophils # (Auto) 0.0 x10^3/uL (0.0-0.7) 0.0 x10^3/uL (0.0-0.7) Basophils # (Auto) 0.0 x10^3/uL (0.0-0.2) 0.0 x10^3/uL (0.0-0.2) Segmented Neutrophils % 37 % (35-66) Band Neutrophils % 33 % (0-9) Lymphocytes % 15 % (24-48) Monocytes % 14 % (0-10) Metamyelocytes % 1 % (0-0) Toxic Granulation Present Toxic Vacuolation Present Platelet Estimate Adequate (ADEQUATE) Large Platelets Present Prothrombin Time 14.7 SEC (11.7-14.0) Prothromb Time International Ratio 1.2 (0.8-1.1) Activated Partial Thromboplast Time 31 SEC (24-38) Sodium Level 134 mmol/L (136-145) 136 mmol/L (136-145) Potassium Level 3.9 mmol/L (3.5-5.1) 4.0 mmol/L (3.5-5.1) Chloride Level 99 mmol/L (98-107) 102 mmol/L (98-107) Carbon Dioxide Level 29 mmol/L (21-32) 30 mmol/L (21-32) Anion Gap 6 (6-14) 4 (6-14) Blood Urea Nitrogen 23 mg/dL (7-20) 21 mg/dL (7-20) Creatinine 0.9 mg/dL (0.6-1.0) 1.0 mg/dL (0.6-1.0) Estimated GFR (Cockcroft-Gault) 59.9 53.1 BUN/Creatinine Ratio 26 (6-20) Glucose Level 132 mg/dL (70-99) 178 mg/dL (70-99) Lactic Acid Level 1.5 mmol/L (0.4-2.0) Calcium Level 9.6 mg/dL (8.5-10.1) 8.9 mg/dL (8.5-10.1) Magnesium Level 2.2 mg/dL (1.8-2.4) Total Bilirubin 0.7 mg/dL (0.2-1.0) Aspartate Amino Transf (AST/SGOT) 40 U/L (15-37) Alanine Aminotransferase (ALT/SGPT) 38 U/L (14-59) Alkaline Phosphatase 59 U/L (46-116) Troponin I Quantitative < 0.017 ng/mL (0.000-0.055) BG-Jrx-C-Type Natriuretic Peptide 617 pg/mL (0-449) Total Protein 7.4 g/dL (6.4-8.2) Albumin 3.1 g/dL (3.4-5.0) Albumin/Globulin Ratio 0.7 (1.0-1.7) Thyroid Stimulating Hormone (TSH) 1.710 uIU/mL (0.358-3.74) Free Thyroxine 1.25 ng/dL (0.76-1.46) Free Triiodothyronine (T3) pg/mL 1.07 pg/mL (2.18-3.98) Medications Active Scripts Medications Dose Route/Sig Max Daily Dose Days Date Category Symbicort 160-4.5 Mcg Inhaler (Budesonide/Formoterol Fumarate) 10.2 Gm Hfa.aer.ad 2 Puff IH BID 12/18/16 Reported Spiriva (Tiotropium Gay) 18 Mcg Cap.w.dev 1 Cap IH DAILY 12/18/16 Reported Levothyroxine Sodium 75 Mcg Tablet 1 Tab PO DAILY 12/18/16 Reported Simvastatin 40 Mg Tablet 1 Tab PO QHS 12/18/16 Reported Fosamax (Alendronate Sodium) 70 Mg Tablet 1 Tab PO WEEKLY 12/18/16 Reported Impression . IMPRESSION: 1. Acute hypoxemic respiratory failure secondary to acute congestive heart failure. 2. Acute congestive heart failure. 3. Mild acute exacerbation of chronic obstructive pulmonary disease. 4. Doubt pneumonia. 5. Possible dysphagia and minimal aspiration. 6. Gbih-oc-zlxjysty protein malnutrition, present upon admission. ECHO <Conclusion> The left ventricle is normal size. The left ventricular systolic function is normal and the ejection fraction is within normal range. The Ejection Fraction is 60-65%. There is no significant aortic valvular stenosis. Doppler and Color Flow revealed no significant aortic regurgitation. Doppler and Color-flow revealed eccentric mild mitral regurgitation. Doppler and Color Flow revealed mild tricuspid regurgitation. The PA pressure was estimated at 34 mmHg. Plan . WILL REVIEW CXR IF IT CLEARS QUICKLY I WOULD FAVOR CHF 1. Recommend diuresis. 2. Repeat chest x-ray. 3. Continue steroids for now and Levaquin. 4. Speech eval. 5. A 6-minute walk prior to discharge. 6. Echocardiogram. REPORT NOTED KATHIE WOOTEN MD Dec 19, 2016 06:31
[2016-12-19 07:15] VITALS: BP 101/62
[2016-12-19] MEDS: IPRATRPIUM/ALBUTEROL 0.5/2.5MG 3 ML NEBU. NEB SCH ×5 (07:37→22:00)
[2016-12-19] MEDS: BUDESONIDE 0.5 MG/2 ML NEBU. NEB SCH ×2 (07:37→19:08)
[2016-12-19] MEDS: predniSONE 20 MG TABLET PO SCH (08:40)
[2016-12-19] MEDS: RALOXIFENE 60 MG TABLET. PO SCH (08:40)
--- NOTE | 2016-12-19 08:51 | PDOC2 ---
CARDIAC CONSULT DATE OF CONSULT Date of Consult DATE: 12/19/16 TIME: 08:45 REASON FOR CONSULT Reason for Consult: SOA: rule out cardiac REFERRING PHYSICIAN Referring Physician: Dr. Mccarthy SOURCE Source: Chart review, Patient HISTORY OF PRESENT ILLNESS HISTORY OF PRESENT ILLNESS This is an 81 yo female who presented with complaints of shortness of breath. Patient reports symptoms have been ongoing for the last 3-4 weeks. Has progressively worsened along with weakness/debility. Has also had non- productive cough and recent orthopnea. No LE edema. Denies any chest pain, palpitations, dizziness, diaphoresis, or nausea/vomiting. Was seen at PCP office yesterday. Was noted to be dyspneic and hypoxic. EMS was called and was transferred directly to [facility] for further evaluation and treatment. Does have an extensive cardiac history with bypass initially in 1993 with redo in 1997. Follows closely with Dr. Reddy of [facility]. Has follow up appointment scheduled for later this month. PAST MEDICAL HISTORY Cardiovascular: CAD, CHF, HTN, Hyperlipidemia, Other (PVD) Pulmonary: COPD GI: No pertinent hx Heme/Onc: No pertinent hx Hepatobiliary: No pertinent hx Psych: No pertinent hx Musculoskeletal: Osteoarthritis Rheumatologic: No pertinent hx Infectious disease: No pertinent hx ENT: No pertinent hx Renal/: No pertinent hx Endocrine: No pertinent hx, Hypothyroidism Dermatology: No pertinent hx PAST SURGICAL HISTORY Past Surgical History: Appendectomy, CABG, Hysterectomy, Other (back sx) FAMILY HISTORY Family History: Adopted SOCIAL HISTORY Smoke: Quit (6 weeks ago) ALCOHOL: none Drugs: None Lives: with Family CURRENT MEDICATIONS CURRENT MEDICATIONS Current Medications Medications (Trade) Dose Ordered Sig/Olivier Route PRN Reason Start Time Stop Time Status Last Admin Dose Admin Sodium Chloride 1,000 ml @ 1,000 mls/hr 1X ONCE IV 12/18/16 13:15 12/18/16 14:14 DC 12/18/16 14:06 Albuterol Sulfate (Ventolin Neb Soln) 5 mg 1X ONCE NEB 12/18/16 13:15 12/18/16 14:03 DC 12/18/16 13:42 Methylprednisolone Sodium Succinate (SOLU-Medrol 125MG VIAL) 125 mg 1X ONCE IV 12/18/16 13:15 12/18/16 14:03 DC 12/18/16 14:07 Benzonatate (Tessalon Perle) 100 mg 1X ONCE PO 12/18/16 13:15 12/18/16 14:03 DC 12/18/16 14:08 Levofloxacin/ Dextrose 100 ml @ 100 mls/hr 1X ONCE IV 12/18/16 13:45 12/18/16 14:44 DC 12/18/16 14:07 Ondansetron HCl (Zofran) 4 mg PRN Q8HRS PRN IV NAUSEA/VOMITING 12/18/16 13:45 12/19/16 13:44 12/18/16 14:07 Albuterol/ Ipratropium (Duoneb) 3 ml Q4HRS W/A NEB 12/18/16 18:00 12/19/16 07:37 Budesonide (Pulmicort) 0.5 mg RTBID NEB 12/18/16 20:00 12/19/16 07:37 Levofloxacin (Levaquin) 500 mg DAILY06 PO 12/18/16 15:00 12/19/16 06:21 Guaifenesin (Robitussin Dm) 10 ml PRN Q6HRS PRN PO COUGH 12/18/16 14:45 12/19/16 04:37 Benzonatate (Tessalon Perle) 100 mg PRN TID PRN PO cough 12/18/16 14:45 12/19/16 04:37 Prednisone (Prednisone) 40 mg DAILY PO 12/19/16 09:00 12/19/16 08:40 Enoxaparin Sodium (Lovenox 30mg Syringe) 30 mg Q24H SQ 12/18/16 18:00 12/18/16 16:44 Furosemide (Lasix) 40 mg 1X ONCE PO 12/18/16 18:00 12/18/16 18:01 DC 12/18/16 18:07 Levothyroxine Sodium (Synthroid) 75 mcg DAILY07 PO 12/19/16 07:00 12/19/16 06:21 Simvastatin (Zocor) 40 mg QHS PO 12/18/16 21:00 12/18/16 21:30 Raloxifene HCl (Evista) 60 mg DAILY PO 12/19/16 09:00 12/19/16 08:40 ALLERGIES ALLERGIES: Coded Allergies: No Known Medication Allergies (Verified Allergy, Unknown, 12/18/16) morphine (Verified Adverse Reaction, Intermediate, SYNCOPE , 12/18/16) ROS Review of System 14 point ROS conducted with pertinent positives noted above in HPI. PHYSICAL EXAM General: Alert, Oriented X3, Cooperative, No acute distress HEENT: Atraumatic, Mucous membr. moist/pink Lungs: Normal air movement, Other (diffuse fine crackles ) Heart: Regular rate, Normal S1, Normal S2 Abdomen: Soft, No tenderness Extremities: No edema, Other (1+ bilateral DP pulses) Skin: No significant lesion Neuro: Normal speech, Sensation intact Psych/Mental Status: Mental status NL, Mood NL MUSCULOSKELETAL: Osteoarthritic changes both hands VITALS VITALS Vital Signs Date Time Temp Pulse Resp B/P (MAP) Pulse Ox O2 Delivery O2 Flow Rate FiO2 12/19/16 07:38 96 Nasal Cannula 3.0 12/19/16 07:15 97.7 71 18 101/62 (75) 97.7 LABS Lab: Laboratory Tests Test 12/18/16 13:01 12/18/16 13:40 12/19/16 04:00 O2 Saturation 85 % (92-99) Arterial Blood pH 7.41 (7.35-7.45) Arterial Blood pCO2 at Patient Temp 39 mmHg (35-46) Arterial Blood pO2 at Patient Temp 49 mmHg (65-108) Arterial Blood HCO3 24 mmol/L (21-28) Arterial Blood Base Excess -1 mmol/L (-3-3) Oxyhemoglobin 84.4 % Methemoglobin 0.3 % (0.0-1.9) Carbon Monoxide, Quantitative 0.4 % (0.0-1.9) FiO2 21 White Blood Count 6.1 x10^3/uL (4.0-11.0) 4.5 x10^3/uL (4.0-11.0) Red Blood Count 4.35 x10^6/uL (3.50-5.40) 3.82 x10^6/uL (3.50-5.40) Hemoglobin 13.5 g/dL (12.0-15.5) 12.2 g/dL (12.0-15.5) Hematocrit 41.8 % (36.0-47.0) 35.7 % (36.0-47.0) Mean Corpuscular Volume 96 fL (79-100) 94 fL (79-100) Mean Corpuscular Hemoglobin 31 pg (25-35) 32 pg (25-35) Mean Corpuscular Hemoglobin Concent 32 g/dL (31-37) 34 g/dL (31-37) Red Cell Distribution Width 13.3 % (11.5-14.5) 13.0 % (11.5-14.5) Platelet Count 183 x10^3/uL (140-400) 210 x10^3/uL (140-400) Neutrophils (%) (Auto) 64 % (31-73) 84 % (31-73) Lymphocytes (%) (Auto) 14 % (24-48) 10 % (24-48) Monocytes (%) (Auto) 22 % (0-9) 7 % (0-9) Eosinophils (%) (Auto) 0 % (0-3) 0 % (0-3) Basophils (%) (Auto) 0 % (0-3) 0 % (0-3) Neutrophils # (Auto) 3.9 x10^3uL (1.8-7.7) 3.8 x10^3uL (1.8-7.7) Lymphocytes # (Auto) 0.8 x10^3/uL (1.0-4.8) 0.4 x10^3/uL (1.0-4.8) Monocytes # (Auto) 1.3 x10^3/uL (0.0-1.1) 0.3 x10^3/uL (0.0-1.1) Eosinophils # (Auto) 0.0 x10^3/uL (0.0-0.7) 0.0 x10^3/uL (0.0-0.7) Basophils # (Auto) 0.0 x10^3/uL (0.0-0.2) 0.0 x10^3/uL (0.0-0.2) Segmented Neutrophils % 37 % (35-66) Band Neutrophils % 33 % (0-9) Lymphocytes % 15 % (24-48) Monocytes % 14 % (0-10) Metamyelocytes % 1 % (0-0) Toxic Granulation Present Toxic Vacuolation Present Platelet Estimate Adequate (ADEQUATE) Large Platelets Present Prothrombin Time 14.7 SEC (11.7-14.0) Prothromb Time International Ratio 1.2 (0.8-1.1) Activated Partial Thromboplast Time 31 SEC (24-38) Sodium Level 134 mmol/L (136-145) 136 mmol/L (136-145) Potassium Level 3.9 mmol/L (3.5-5.1) 4.0 mmol/L (3.5-5.1) Chloride Level 99 mmol/L (98-107) 102 mmol/L (98-107) Carbon Dioxide Level 29 mmol/L (21-32) 30 mmol/L (21-32) Anion Gap 6 (6-14) 4 (6-14) Blood Urea Nitrogen 23 mg/dL (7-20) 21 mg/dL (7-20) Creatinine 0.9 mg/dL (0.6-1.0) 1.0 mg/dL (0.6-1.0) Estimated GFR (Cockcroft-Gault) 59.9 53.1 BUN/Creatinine Ratio 26 (6-20) Glucose Level 132 mg/dL (70-99) 178 mg/dL (70-99) Lactic Acid Level 1.5 mmol/L (0.4-2.0) Calcium Level 9.6 mg/dL (8.5-10.1) 8.9 mg/dL (8.5-10.1) Magnesium Level 2.2 mg/dL (1.8-2.4) Total Bilirubin 0.7 mg/dL (0.2-1.0) Aspartate Amino Transf (AST/SGOT) 40 U/L (15-37) Alanine Aminotransferase (ALT/SGPT) 38 U/L (14-59) Alkaline Phosphatase 59 U/L (46-116) Troponin I Quantitative < 0.017 ng/mL (0.000-0.055) KF-Moe-R-Type Natriuretic Peptide 617 pg/mL (0-449) Total Protein 7.4 g/dL (6.4-8.2) Albumin 3.1 g/dL (3.4-5.0) Albumin/Globulin Ratio 0.7 (1.0-1.7) Thyroid Stimulating Hormone (TSH) 1.710 uIU/mL (0.358-3.74) Free Thyroxine 1.25 ng/dL (0.76-1.46) Free Triiodothyronine (T3) pg/mL 1.07 pg/mL (2.18-3.98) ECHOCARDIOGRAM ECHOCARDIOGRAM <Conclusion> The left ventricle is normal size. The left ventricular systolic function is normal and the ejection fraction is within normal range. The Ejection Fraction is 60-65%. There is no significant aortic valvular stenosis. Doppler and Color Flow revealed no significant aortic regurgitation. Doppler and Color-flow revealed eccentric mild mitral regurgitation. Doppler and Color Flow revealed mild tricuspid regurgitation. The PA pressure was estimated at 34 mmHg. DATE: 12/18/16 1658 ASSESSMENT/PLAN ASSESSMENT/PLAN 1. Acute on chronic diastolic heart failure; NT pro BNP mildly elevated. CXR with pulmonary edema versus PNA. Echo revealed preserved LV function- no WMA present. Improved with Lasix. continue mild diuresis as BP allows. 2. Acute on chronic respiratory failure with h/o COPD; improved. per pulm 3. CAD s/p CABG; stable. CP free. Repeat troponin. Obtain records from [facility]. Continue secondary prevention measures. Add ASA 4. PVD; stable. Does reports some resting and exertional symptoms. Will defer to outpatient line supervisor. 5. Hypertension; low-normotensive. Hold antiHTN therapy as warranted 6. Hyperlipidemia; check lipids. continue statin therapy. 7. Hypothyroidism; check TSH Problems: MAGDI HAYES APRN Dec 19, 2016 08:51
[2016-12-19 10:45] VITALS: BP 92/49
--- NOTE | 2016-12-19 10:57 | RAD ---
Indication difficulty breathing. A single view of the chest was obtained and is compared to a study one day earlier. Postoperative changes are noted. Interstitial prominence in the lungs persists compatible with mild interstitial edema. There has, however, been slight improvement relative to the prior exam. There is no consolidated pneumonia. A new finding in the chest is not seen. IMPRESSION: Slight interval improvement in the appearance of the chest
[2016-12-19 11:17] LABS: CHOLESTEROL/HDL RATIO 2.6
[2016-12-19] MEDS: FUROSEMIDE 40 MG TABLET. PO SCH (12:00)
--- NOTE | 2016-12-19 14:04 | PDOC ---
PROGRESS NOTES Chief Complaint Chief Complaint Acute hypoxic respiratory failure mild acute diastolic grade 1 CHF exacerbation mild COPD exacerbation with bronchitis mild/moderate malnutrition, BMI < 17 weakness/debility xerostomia plan: fu with pulm CXR repeated cont abx duoneb add cough meds NC 3l ptot dvt ppx History of Present Illness History of Present Illness cough a lot, with some sputums NC3 L , new to her Vitals Vitals Vital Signs Date Time Temp Pulse Resp B/P (MAP) Pulse Ox O2 Delivery O2 Flow Rate FiO2 12/19/16 11:36 98 Nasal Cannula 3.0 12/19/16 10:45 96.7 74 18 92/49 (63) 96.7 Physical Exam General: Alert, Oriented X3, Cooperative, No acute distress Heart: Regular rate, Normal S1, Normal S2 Lungs: Clear, Crackles Abdomen: Soft, No tenderness Extremities: No clubbing, No cyanosis, No edema, Other (1+ bilateral DP pulses) Skin: No rashes, No significant lesion Labs LABS Laboratory Tests Test 12/19/16 04:00 White Blood Count 4.5 x10^3/uL (4.0-11.0) Red Blood Count 3.82 x10^6/uL (3.50-5.40) Hemoglobin 12.2 g/dL (12.0-15.5) Hematocrit 35.7 % (36.0-47.0) Mean Corpuscular Volume 94 fL (79-100) Mean Corpuscular Hemoglobin 32 pg (25-35) Mean Corpuscular Hemoglobin Concent 34 g/dL (31-37) Red Cell Distribution Width 13.0 % (11.5-14.5) Platelet Count 210 x10^3/uL (140-400) Neutrophils (%) (Auto) 84 % (31-73) Lymphocytes (%) (Auto) 10 % (24-48) Monocytes (%) (Auto) 7 % (0-9) Eosinophils (%) (Auto) 0 % (0-3) Basophils (%) (Auto) 0 % (0-3) Neutrophils # (Auto) 3.8 x10^3uL (1.8-7.7) Lymphocytes # (Auto) 0.4 x10^3/uL (1.0-4.8) Monocytes # (Auto) 0.3 x10^3/uL (0.0-1.1) Eosinophils # (Auto) 0.0 x10^3/uL (0.0-0.7) Basophils # (Auto) 0.0 x10^3/uL (0.0-0.2) Sodium Level 136 mmol/L (136-145) Potassium Level 4.0 mmol/L (3.5-5.1) Chloride Level 102 mmol/L (98-107) Carbon Dioxide Level 30 mmol/L (21-32) Anion Gap 4 (6-14) Blood Urea Nitrogen 21 mg/dL (7-20) Creatinine 1.0 mg/dL (0.6-1.0) Estimated GFR (Cockcroft-Gault) 53.1 Glucose Level 178 mg/dL (70-99) Calcium Level 8.9 mg/dL (8.5-10.1) Troponin I Quantitative < 0.017 ng/mL (0.000-0.055) Triglycerides Level 61 mg/dL (0-150) Cholesterol Level 147 mg/dL (0-200) LDL Cholesterol, Calculated 79 mg/dL (0-100) VLDL Cholesterol, Calculated 12 mg/dL (0-40) Non-HDL Cholesterol Calculated 91 mg/dL (0-129) HDL Cholesterol 56 mg/dL (40-60) Cholesterol/HDL Ratio 2.6 Review of Systems Review of Systems no fever, chills chest pain Assessment and Plan Assessmemt and Plan Problems Medical Problems: (1) COPD exacerbation Status: Acute (2) Elevated brain natriuretic peptide (BNP) level Status: Acute (3) Hypoxia Status: Acute Problems: Comment Review of Relevant I have reviewed the following items praveen (where applicable) has been applied. Labs Laboratory Tests Test 12/18/16 13:01 12/18/16 13:40 12/19/16 04:00 O2 Saturation 85 % (92-99) Arterial Blood pH 7.41 (7.35-7.45) Arterial Blood pCO2 at Patient Temp 39 mmHg (35-46) Arterial Blood pO2 at Patient Temp 49 mmHg (65-108) Arterial Blood HCO3 24 mmol/L (21-28) Arterial Blood Base Excess -1 mmol/L (-3-3) Oxyhemoglobin 84.4 % Methemoglobin 0.3 % (0.0-1.9) Carbon Monoxide, Quantitative 0.4 % (0.0-1.9) FiO2 21 White Blood Count 6.1 x10^3/uL (4.0-11.0) 4.5 x10^3/uL (4.0-11.0) Red Blood Count 4.35 x10^6/uL (3.50-5.40) 3.82 x10^6/uL (3.50-5.40) Hemoglobin 13.5 g/dL (12.0-15.5) 12.2 g/dL (12.0-15.5) Hematocrit 41.8 % (36.0-47.0) 35.7 % (36.0-47.0) Mean Corpuscular Volume 96 fL (79-100) 94 fL (79-100) Mean Corpuscular Hemoglobin 31 pg (25-35) 32 pg (25-35) Mean Corpuscular Hemoglobin Concent 32 g/dL (31-37) 34 g/dL (31-37) Red Cell Distribution Width 13.3 % (11.5-14.5) 13.0 % (11.5-14.5) Platelet Count 183 x10^3/uL (140-400) 210 x10^3/uL (140-400) Neutrophils (%) (Auto) 64 % (31-73) 84 % (31-73) Lymphocytes (%) (Auto) 14 % (24-48) 10 % (24-48) Monocytes (%) (Auto) 22 % (0-9) 7 % (0-9) Eosinophils (%) (Auto) 0 % (0-3) 0 % (0-3) Basophils (%) (Auto) 0 % (0-3) 0 % (0-3) Neutrophils # (Auto) 3.9 x10^3uL (1.8-7.7) 3.8 x10^3uL (1.8-7.7) Lymphocytes # (Auto) 0.8 x10^3/uL (1.0-4.8) 0.4 x10^3/uL (1.0-4.8) Monocytes # (Auto) 1.3 x10^3/uL (0.0-1.1) 0.3 x10^3/uL (0.0-1.1) Eosinophils # (Auto) 0.0 x10^3/uL (0.0-0.7) 0.0 x10^3/uL (0.0-0.7) Basophils # (Auto) 0.0 x10^3/uL (0.0-0.2) 0.0 x10^3/uL (0.0-0.2) Segmented Neutrophils % 37 % (35-66) Band Neutrophils % 33 % (0-9) Lymphocytes % 15 % (24-48) Monocytes % 14 % (0-10) Metamyelocytes % 1 % (0-0) Toxic Granulation Present Toxic Vacuolation Present Platelet Estimate Adequate (ADEQUATE) Large Platelets Present Prothrombin Time 14.7 SEC (11.7-14.0) Prothromb Time International Ratio 1.2 (0.8-1.1) Activated Partial Thromboplast Time 31 SEC (24-38) Sodium Level 134 mmol/L (136-145) 136 mmol/L (136-145) Potassium Level 3.9 mmol/L (3.5-5.1) 4.0 mmol/L (3.5-5.1) Chloride Level 99 mmol/L (98-107) 102 mmol/L (98-107) Carbon Dioxide Level 29 mmol/L (21-32) 30 mmol/L (21-32) Anion Gap 6 (6-14) 4 (6-14) Blood Urea Nitrogen 23 mg/dL (7-20) 21 mg/dL (7-20) Creatinine 0.9 mg/dL (0.6-1.0) 1.0 mg/dL (0.6-1.0) Estimated GFR (Cockcroft-Gault) 59.9 53.1 BUN/Creatinine Ratio 26 (6-20) Glucose Level 132 mg/dL (70-99) 178 mg/dL (70-99) Lactic Acid Level 1.5 mmol/L (0.4-2.0) Calcium Level 9.6 mg/dL (8.5-10.1) 8.9 mg/dL (8.5-10.1) Magnesium Level 2.2 mg/dL (1.8-2.4) Total Bilirubin 0.7 mg/dL (0.2-1.0) Aspartate Amino Transf (AST/SGOT) 40 U/L (15-37) Alanine Aminotransferase (ALT/SGPT) 38 U/L (14-59) Alkaline Phosphatase 59 U/L (46-116) Troponin I Quantitative < 0.017 ng/mL (0.000-0.055) < 0.017 ng/mL (0.000-0.055) GL-Kzw-P-Type Natriuretic Peptide 617 pg/mL (0-449) Total Protein 7.4 g/dL (6.4-8.2) Albumin 3.1 g/dL (3.4-5.0) Albumin/Globulin Ratio 0.7 (1.0-1.7) Thyroid Stimulating Hormone (TSH) 1.710 uIU/mL (0.358-3.74) Free Thyroxine 1.25 ng/dL (0.76-1.46) Free Triiodothyronine (T3) pg/mL 1.07 pg/mL (2.18-3.98) Triglycerides Level 61 mg/dL (0-150) Cholesterol Level 147 mg/dL (0-200) LDL Cholesterol, Calculated 79 mg/dL (0-100) VLDL Cholesterol, Calculated 12 mg/dL (0-40) Non-HDL Cholesterol Calculated 91 mg/dL (0-129) HDL Cholesterol 56 mg/dL (40-60) Cholesterol/HDL Ratio 2.6 Laboratory Tests Test 12/19/16 04:00 White Blood Count 4.5 x10^3/uL (4.0-11.0) Red Blood Count 3.82 x10^6/uL (3.50-5.40) Hemoglobin 12.2 g/dL (12.0-15.5) Hematocrit 35.7 % (36.0-47.0) Mean Corpuscular Volume 94 fL (79-100) Mean Corpuscular Hemoglobin 32 pg (25-35) Mean Corpuscular Hemoglobin Concent 34 g/dL (31-37) Red Cell Distribution Width 13.0 % (11.5-14.5) Platelet Count 210 x10^3/uL (140-400) Neutrophils (%) (Auto) 84 % (31-73) Lymphocytes (%) (Auto) 10 % (24-48) Monocytes (%) (Auto) 7 % (0-9) Eosinophils (%) (Auto) 0 % (0-3) Basophils (%) (Auto) 0 % (0-3) Neutrophils # (Auto) 3.8 x10^3uL (1.8-7.7) Lymphocytes # (Auto) 0.4 x10^3/uL (1.0-4.8) Monocytes # (Auto) 0.3 x10^3/uL (0.0-1.1) Eosinophils # (Auto) 0.0 x10^3/uL (0.0-0.7) Basophils # (Auto) 0.0 x10^3/uL (0.0-0.2) Sodium Level 136 mmol/L (136-145) Potassium Level 4.0 mmol/L (3.5-5.1) Chloride Level 102 mmol/L (98-107) Carbon Dioxide Level 30 mmol/L (21-32) Anion Gap 4 (6-14) Blood Urea Nitrogen 21 mg/dL (7-20) Creatinine 1.0 mg/dL (0.6-1.0) Estimated GFR (Cockcroft-Gault) 53.1 Glucose Level 178 mg/dL (70-99) Calcium Level 8.9 mg/dL (8.5-10.1) Troponin I Quantitative < 0.017 ng/mL (0.000-0.055) Triglycerides Level 61 mg/dL (0-150) Cholesterol Level 147 mg/dL (0-200) LDL Cholesterol, Calculated 79 mg/dL (0-100) VLDL Cholesterol, Calculated 12 mg/dL (0-40) Non-HDL Cholesterol Calculated 91 mg/dL (0-129) HDL Cholesterol 56 mg/dL (40-60) Cholesterol/HDL Ratio 2.6 Medications Current Medications Sodium Chloride 1,000 ml @ 1,000 mls/hr 1X ONCE IV Last administered on 14:06; Start 12/18/16 at 13:15; Stop 12/18/16 at 14:14; Status DC Albuterol Sulfate (Ventolin Neb Soln) 5 mg 1X ONCE NEB Last administered on 13:42; Start 12/18/16 at 13:15; Stop 12/18/16 at 14:03; Status DC Methylprednisolone Sodium Succinate (SOLU-Medrol 125MG VIAL) 125 mg 1X ONCE IV Last administered on 12/18/16 14:07; Start 12/18/16 at 13:15; Stop 12/18/16 at 14:03; Status DC Benzonatate (Tessalon Perle) 100 mg 1X ONCE PO Last administered on 12/18/16 14:08; Start 12/18/16 at 13:15; Stop 12/18/16 at 14:03; Status DC Levofloxacin/ Dextrose 100 ml @ 100 mls/hr 1X ONCE IV Last administered on 14:07; Start 12/18/16 at 13:45; Stop 12/18/16 at 14:44; Status DC Ondansetron HCl (Zofran) 4 mg PRN Q8HRS PRN IV NAUSEA/VOMITING Last administered on 12/18/16 14:07; Start 12/18/16 at 13:45; Stop 12/19/16 at 13:44; Status DC Albuterol/ Ipratropium (Duoneb) 3 ml Q4HRS W/A NEB Last administered on 11:36; Start 12/18/16 at 18:00 Budesonide (Pulmicort) 0.5 mg RTBID NEB Last administered on 12/19/16 07:37; Start 12/18/16 at 20:00 Levofloxacin (Levaquin) 500 mg DAILY06 PO Last administered on 12/19/16 06:21; Start 12/18/16 at 15:00 Guaifenesin (Robitussin Dm) 10 ml PRN Q6HRS PRN PO COUGH Last administered on 04:37; Start 12/18/16 at 14:45 Benzonatate (Tessalon Perle) 100 mg PRN TID PRN PO cough Last administered on 04:37; Start 12/18/16 at 14:45; Stop 12/19/16 at 14:00 Saliva Substitute (Biotene Moisturizing Mouth) 2 spray PRN Q15MIN PRN PO DRY MOUTH; Start 12/18/16 at 15:45 Prednisone (Prednisone) 40 mg DAILY PO Last administered on 12/19/16 08:40; Start 12/19/16 at 09:00 Saliva Substitute (Biotene Moisturizing Mouth) 2 spray PRN Q15MIN PRN PO DRY MOUTH; Start 12/18/16 at 16:00; Status Cancel Enoxaparin Sodium (Lovenox Per Pharmacy Prophylaxis Dosing) 1 each PRN DAILY PRN MC SEE COMMENTS; Start 12/19/16 at 09:00; Status UNV Enoxaparin Sodium (Lovenox 30mg Syringe) 30 mg Q24H SQ Last administered on 12/18 16:44; Start 12/18/16 at 18:00 Furosemide (Lasix) 40 mg 1X ONCE PO Last administered on 12/18/16 18:07; Start 12/18/16 at 18:00; Stop 12/18/16 at 18:01; Status DC Levothyroxine Sodium (Synthroid) 75 mcg DAILY07 PO Last administered on 06:21; Start 12/19/16 at 07:00 Simvastatin (Zocor) 40 mg QHS PO Last administered on 12/18/16 21:30; Start 12/18/16 at 21:00 Non-Formulary Medication 1 tab WEEKLY PO ; Start 12/25/16 at 09:00; Status UNV Raloxifene HCl (Evista) 60 mg DAILY PO Last administered on 12/19/16 08:40; Start 12/19/16 at 09:00 Albuterol Sulfate (Ventolin Neb Soln) 2.5 mg PRN Q4HRS PRN NEB SHORTNESS OF BREATH; Start 12/19/16 at 08:15 Benzonatate (Tessalon Perle) 100 mg TID PO ; Start 12/19/16 at 14:00 Furosemide (Lasix) 40 mg DAILY PO Last administered on 12/19/16 12:00; Start at 12:00 Active Scripts Active Reported Evista (Raloxifene Hcl) 60 Mg Tablet 1 Tab PO DAILY Amlodipine Besylate 5 Mg Tablet 5 Mg PO DAILY Metoprolol Succinate ( Xl ) (Metoprolol Succinate) 25 Mg Tab.er.24h 2 Tab PO DAILY Lisinopril 40 Mg Tablet 1 Tab PO DAILY Symbicort 160-4.5 Mcg Inhaler (Budesonide/Formoterol Fumarate) 10.2 Gm Hfa.aer.ad 2 Puff IH BID Spiriva (Tiotropium Lily) 18 Mcg Cap.w.dev 1 Cap IH DAILY Levothyroxine Sodium 75 Mcg Tablet 1 Tab PO DAILY Simvastatin 40 Mg Tablet 1 Tab PO QHS Vitals/I & O Vital Sign - Last 24 Hours 12/18/16 12/18/16 12/18/16 12/18/16 14:46 15:00 15:55 16:02 Temp 98.1 98.1 98.1 98.1 Pulse 86 98 98 Resp 18 18 B/P (MAP) 136/85 (102) 141/65 (90) 141/65 (90) Pulse Ox 96 90 90 O2 Delivery Nasal Cannula Nasal Cannula Nasal Cannula Nasal Cannula O2 Flow Rate 3.0 3.0 3.0 3.0 12/18/16 12/18/16 12/18/16 12/18/16 16:17 19:00 19:53 20:04 Temp 98.1 98.1 Pulse 86 Resp 18 B/P (MAP) 97/51 (66) Pulse Ox 91 96 95 O2 Delivery Nasal Cannula Nasal Cannula Nasal Cannula Nasal Cannula O2 Flow Rate 3.0 3.0 3.0 3.0 12/18/16 12/19/16 12/19/16 12/19/16 23:02 03:00 07:15 07:38 Temp 98.4 98.5 97.7 98.4 98.5 97.7 Pulse 64 78 71 Resp 18 19 18 B/P (MAP) 101/54 (70) 92/48 (63) 101/62 (75) Pulse Ox 94 95 95 96 O2 Delivery Nasal Cannula Nasal Cannula Nasal Cannula Nasal Cannula O2 Flow Rate 3.0 3.0 3.0 3.0 12/19/16 12/19/16 12/19/16 08:00 10:45 11:36 Temp 96.7 96.7 Pulse 74 Resp 18 B/P (MAP) 92/49 (63) Pulse Ox 94 98 O2 Delivery Nasal Cannula Nasal Cannula Nasal Cannula O2 Flow Rate 3.0 3.0 3.0 Intake and Output 12/18/16 12/18/16 12/19/16 15:00 23:00 07:00 Intake Total 220 ml 440 ml 120 ml Balance 220 ml 440 ml 120 ml ANEUDY DORSEY MD Dec 19, 2016 14:04
[2016-12-19 14:30] VITALS: BP 107/57
[2016-12-19] MEDS: FAMOTIDINE 20 MG TABLET. PO SCH (15:29)
[2016-12-19] MEDS: BENZONATATE 100 MG CAPSULE. PO SCH ×2 (15:29→20:39)
[2016-12-19] MEDS ORDERED: ONDANSETRON PF 4 MG/2 ML VIAL. IV PRN (16:30)
[2016-12-19] MEDS ORDERED: hydrALAZINE 20 MG/ML VIAL. IVP PRN (16:30)
[2016-12-19] MEDS: ACETAMINOPHEN 325 MG TABLET. PO PRN (17:24)
[2016-12-19] MEDS: ENOXAPARIN 30 MG/0.3 ML SYRINGE. SQ SCH (17:24)
[2016-12-19 19:59] VITALS: BP 108/51
[2016-12-19] MEDS: SIMVASTATIN 40 MG TABLET. PO SCH (20:39)
[2016-12-19] MEDS ORDERED: fentaNYL PF VIAL 100 MCG/2 ML VIAL IV PRN (21:00)
[2016-12-19 23:00] VITALS: BP 102/48
[2016-12-20 05:52] LABS: GFR 53.1
[2016-12-20] MEDS: IPRATRPIUM/ALBUTEROL 0.5/2.5MG 3 ML NEBU. NEB SCH ×5 (06:00→19:19)
[2016-12-20] MEDS: LEVOTHYROXINE 75 MCG TABLET PO SCH (06:22)
[2016-12-20] MEDS: guaiFENesin DM 200MG/20MG 10 ML SYRUP PO PRN (06:24)
[2016-12-20 07:15] VITALS: BP 107/54
[2016-12-20] MEDS: BUDESONIDE 0.5 MG/2 ML NEBU. NEB SCH ×2 (07:25→19:19)
[2016-12-20] MEDS: FAMOTIDINE 20 MG TABLET. PO SCH (09:05)
[2016-12-20] MEDS: BENZONATATE 100 MG CAPSULE. PO SCH ×3 (09:05→20:27)
[2016-12-20] MEDS: ACETAMINOPHEN 325 MG TABLET. PO PRN (09:05)
[2016-12-20] MEDS: predniSONE 20 MG TABLET PO SCH (09:06)
[2016-12-20] MEDS: RALOXIFENE 60 MG TABLET. PO SCH (09:06)
[2016-12-20] MEDS: FUROSEMIDE 40 MG TABLET. PO SCH (09:06)
[2016-12-20] MEDS: traMADol 50 MG TABLET PO PRN ×2 (10:28→20:28)
[2016-12-20 10:30] VITALS: BP 107/53
--- NOTE | 2016-12-20 10:30 | PDOC ---
PULMONARY PROGRESS NOTES Subjective PT FEEL BETTER LESS SOA Vitals Vital Signs Date Time Temp Pulse Resp B/P (MAP) Pulse Ox O2 Delivery O2 Flow Rate FiO2 12/20/16 08:00 Nasal Cannula 2.0 12/20/16 07:35 98 12/20/16 07:15 96.4 72 18 107/54 (71) 96.4 ROS: No Nausea, No Chest Pain, No Abdominal Pain, No Increase Cough Lungs: Clear, Crackles Cardiovascular: S1, S2 Abdomen: Soft Neuro Exam: Alert Extremities: No Edema Skin: Warm Labs Laboratory Tests Test 12/18/16 13:01 12/18/16 13:40 12/19/16 04:00 12/20/16 04:55 O2 Saturation 85 % (92-99) Arterial Blood pH 7.41 (7.35-7.45) Arterial Blood pCO2 at Patient Temp 39 mmHg (35-46) Arterial Blood pO2 at Patient Temp 49 mmHg (65-108) Arterial Blood HCO3 24 mmol/L (21-28) Arterial Blood Base Excess -1 mmol/L (-3-3) Oxyhemoglobin 84.4 % Methemoglobin 0.3 % (0.0-1.9) Carbon Monoxide, Quantitative 0.4 % (0.0-1.9) FiO2 21 White Blood Count 6.1 x10^3/uL (4.0-11.0) 4.5 x10^3/uL (4.0-11.0) Red Blood Count 4.35 x10^6/uL (3.50-5.40) 3.82 x10^6/uL (3.50-5.40) Hemoglobin 13.5 g/dL (12.0-15.5) 12.2 g/dL (12.0-15.5) Hematocrit 41.8 % (36.0-47.0) 35.7 % (36.0-47.0) Mean Corpuscular Volume 96 fL (79-100) 94 fL (79-100) Mean Corpuscular Hemoglobin 31 pg (25-35) 32 pg (25-35) Mean Corpuscular Hemoglobin Concent 32 g/dL (31-37) 34 g/dL (31-37) Red Cell Distribution Width 13.3 % (11.5-14.5) 13.0 % (11.5-14.5) Platelet Count 183 x10^3/uL (140-400) 210 x10^3/uL (140-400) Neutrophils (%) (Auto) 64 % (31-73) 84 % (31-73) Lymphocytes (%) (Auto) 14 % (24-48) 10 % (24-48) Monocytes (%) (Auto) 22 % (0-9) 7 % (0-9) Eosinophils (%) (Auto) 0 % (0-3) 0 % (0-3) Basophils (%) (Auto) 0 % (0-3) 0 % (0-3) Neutrophils # (Auto) 3.9 x10^3uL (1.8-7.7) 3.8 x10^3uL (1.8-7.7) Lymphocytes # (Auto) 0.8 x10^3/uL (1.0-4.8) 0.4 x10^3/uL (1.0-4.8) Monocytes # (Auto) 1.3 x10^3/uL (0.0-1.1) 0.3 x10^3/uL (0.0-1.1) Eosinophils # (Auto) 0.0 x10^3/uL (0.0-0.7) 0.0 x10^3/uL (0.0-0.7) Basophils # (Auto) 0.0 x10^3/uL (0.0-0.2) 0.0 x10^3/uL (0.0-0.2) Segmented Neutrophils % 37 % (35-66) Band Neutrophils % 33 % (0-9) Lymphocytes % 15 % (24-48) Monocytes % 14 % (0-10) Metamyelocytes % 1 % (0-0) Toxic Granulation Present Toxic Vacuolation Present Platelet Estimate Adequate (ADEQUATE) Large Platelets Present Prothrombin Time 14.7 SEC (11.7-14.0) Prothromb Time International Ratio 1.2 (0.8-1.1) Activated Partial Thromboplast Time 31 SEC (24-38) Sodium Level 134 mmol/L (136-145) 136 mmol/L (136-145) 135 mmol/L (136-145) Potassium Level 3.9 mmol/L (3.5-5.1) 4.0 mmol/L (3.5-5.1) 4.0 mmol/L (3.5-5.1) Chloride Level 99 mmol/L (98-107) 102 mmol/L (98-107) 100 mmol/L (98-107) Carbon Dioxide Level 29 mmol/L (21-32) 30 mmol/L (21-32) 32 mmol/L (21-32) Anion Gap 6 (6-14) 4 (6-14) 3 (6-14) Blood Urea Nitrogen 23 mg/dL (7-20) 21 mg/dL (7-20) 29 mg/dL (7-20) Creatinine 0.9 mg/dL (0.6-1.0) 1.0 mg/dL (0.6-1.0) 1.0 mg/dL (0.6-1.0) Estimated GFR (Cockcroft-Gault) 59.9 53.1 53.1 BUN/Creatinine Ratio 26 (6-20) Glucose Level 132 mg/dL (70-99) 178 mg/dL (70-99) 130 mg/dL (70-99) Lactic Acid Level 1.5 mmol/L (0.4-2.0) Calcium Level 9.6 mg/dL (8.5-10.1) 8.9 mg/dL (8.5-10.1) 9.0 mg/dL (8.5-10.1) Magnesium Level 2.2 mg/dL (1.8-2.4) 2.0 mg/dL (1.8-2.4) Total Bilirubin 0.7 mg/dL (0.2-1.0) Aspartate Amino Transf (AST/SGOT) 40 U/L (15-37) Alanine Aminotransferase (ALT/SGPT) 38 U/L (14-59) Alkaline Phosphatase 59 U/L (46-116) Troponin I Quantitative < 0.017 ng/mL (0.000-0.055) < 0.017 ng/mL (0.000-0.055) UX-Upk-N-Type Natriuretic Peptide 617 pg/mL (0-449) Total Protein 7.4 g/dL (6.4-8.2) Albumin 3.1 g/dL (3.4-5.0) Albumin/Globulin Ratio 0.7 (1.0-1.7) Thyroid Stimulating Hormone (TSH) 1.710 uIU/mL (0.358-3.74) Free Thyroxine 1.25 ng/dL (0.76-1.46) Free Triiodothyronine (T3) pg/mL 1.07 pg/mL (2.18-3.98) Triglycerides Level 61 mg/dL (0-150) Cholesterol Level 147 mg/dL (0-200) LDL Cholesterol, Calculated 79 mg/dL (0-100) VLDL Cholesterol, Calculated 12 mg/dL (0-40) Non-HDL Cholesterol Calculated 91 mg/dL (0-129) HDL Cholesterol 56 mg/dL (40-60) Cholesterol/HDL Ratio 2.6 Laboratory Tests Test 12/20/16 04:55 Sodium Level 135 mmol/L (136-145) Potassium Level 4.0 mmol/L (3.5-5.1) Chloride Level 100 mmol/L (98-107) Carbon Dioxide Level 32 mmol/L (21-32) Anion Gap 3 (6-14) Blood Urea Nitrogen 29 mg/dL (7-20) Creatinine 1.0 mg/dL (0.6-1.0) Estimated GFR (Cockcroft-Gault) 53.1 Glucose Level 130 mg/dL (70-99) Calcium Level 9.0 mg/dL (8.5-10.1) Magnesium Level 2.0 mg/dL (1.8-2.4) Medications Active Scripts Medications Dose Route/Sig Max Daily Dose Days Date Category Symbicort 160-4.5 Mcg Inhaler (Budesonide/Formoterol Fumarate) 10.2 Gm Hfa.aer.ad 2 Puff IH BID 12/18/16 Reported Spiriva (Tiotropium [place]) 18 Mcg Cap.w.dev 1 Cap IH DAILY 12/18/16 Reported Levothyroxine Sodium 75 Mcg Tablet 1 Tab PO DAILY 12/18/16 Reported Simvastatin 40 Mg Tablet 1 Tab PO QHS 12/18/16 Reported Fosamax (Alendronate Sodium) 70 Mg Tablet 1 Tab PO WEEKLY 12/18/16 Reported Impression . IMPRESSION: 1. Acute hypoxemic respiratory failure secondary to acute congestive heart failure. 2. Acute congestive heart failure. 3. Mild acute exacerbation of chronic obstructive pulmonary disease. 4. Doubt pneumonia. 5. Possible dysphagia and minimal aspiration. 6. Bnww-ad-[id number] protein malnutrition, present upon admission. ECHO <Conclusion> The left ventricle is normal size. The left ventricular systolic function is normal and the ejection fraction is within normal range. The Ejection Fraction is 60-65%. There is no significant aortic valvular stenosis. Doppler and Color Flow revealed no significant aortic regurgitation. Doppler and Color-flow revealed eccentric mild mitral regurgitation. Doppler and Color Flow revealed mild tricuspid regurgitation. The PA pressure was estimated at 34 mmHg. Plan . 1. Recommend diuresis. 2. Repeat chest x-ray, IMPROVED SUSPECT MOSTLY CHF 3. Continue steroids for now and Levaquin. 4. Speech eval. 5. A 6-minute walk prior to discharge. 6. Echocardiogram. REPORT NOTED KATHIE WOOTEN MD Dec 20, 2016 10:30
--- NOTE | 2016-12-20 11:25 | PDOC ---
PROGRESS NOTES Chief Complaint Chief Complaint Acute hypoxic respiratory failure mild acute diastolic grade 1 CHF exacerbation mild COPD exacerbation with bronchitis mild/moderate malnutrition, BMI < 17 weakness/debility xerostomia chest pain with coughing plan: fu with pulm CXR repeated cont abx duoneb add cough meds NC 2L, may need 6min walk when dc, hope in 1-2ds ptot dvt ppx lasix 40mg daily as per pulm History of Present Illness History of Present Illness cough a lot, with some sputums NC 2L , new to her Vitals Vitals Vital Signs Date Time Temp Pulse Resp B/P (MAP) Pulse Ox O2 Delivery O2 Flow Rate FiO2 12/20/16 08:00 Nasal Cannula 2.0 12/20/16 07:35 98 12/20/16 07:15 96.4 72 18 107/54 (71) 96.4 Physical Exam General: Alert, Oriented X3, Cooperative, No acute distress Heart: Regular rate, Normal S1, Normal S2 Lungs: Clear, Crackles Abdomen: Soft, No tenderness Extremities: No clubbing, No cyanosis, No edema, Other (1+ bilateral DP pulses) Skin: No rashes, No significant lesion Labs LABS Laboratory Tests Test 12/20/16 04:55 Sodium Level 135 mmol/L (136-145) Potassium Level 4.0 mmol/L (3.5-5.1) Chloride Level 100 mmol/L (98-107) Carbon Dioxide Level 32 mmol/L (21-32) Anion Gap 3 (6-14) Blood Urea Nitrogen 29 mg/dL (7-20) Creatinine 1.0 mg/dL (0.6-1.0) Estimated GFR (Cockcroft-Gault) 53.1 Glucose Level 130 mg/dL (70-99) Calcium Level 9.0 mg/dL (8.5-10.1) Magnesium Level 2.0 mg/dL (1.8-2.4) Review of Systems Review of Systems no fever, chills, sob or chest pain Assessment and Plan Assessmemt and Plan Problems Medical Problems: (1) COPD exacerbation Status: Acute (2) Elevated brain natriuretic peptide (BNP) level Status: Acute (3) Hypoxia Status: Acute Problems: Comment Review of Relevant I have reviewed the following items praveen (where applicable) has been applied. Labs Laboratory Tests Test 12/18/16 13:01 12/18/16 13:40 8/5/17 04:00 12/20/16 04:55 O2 Saturation 85 % (92-99) Arterial Blood pH 7.41 (7.35-7.45) Arterial Blood pCO2 at Patient Temp 39 mmHg (35-46) Arterial Blood pO2 at Patient Temp 49 mmHg (65-108) Arterial Blood HCO3 24 mmol/L (21-28) Arterial Blood Base Excess -1 mmol/L (-3-3) Oxyhemoglobin 84.4 % Methemoglobin 0.3 % (0.0-1.9) Carbon Monoxide, Quantitative 0.4 % (0.0-1.9) FiO2 21 White Blood Count 6.1 x10^3/uL (4.0-11.0) 4.5 x10^3/uL (4.0-11.0) Red Blood Count 4.35 x10^6/uL (3.50-5.40) 3.82 x10^6/uL (3.50-5.40) Hemoglobin 13.5 g/dL (12.0-15.5) 12.2 g/dL (12.0-15.5) Hematocrit 41.8 % (36.0-47.0) 35.7 % (36.0-47.0) Mean Corpuscular Volume 96 fL (79-100) 94 fL (79-100) Mean Corpuscular Hemoglobin 31 pg (25-35) 32 pg (25-35) Mean Corpuscular Hemoglobin Concent 32 g/dL (31-37) 34 g/dL (31-37) Red Cell Distribution Width 13.3 % (11.5-14.5) 13.0 % (11.5-14.5) Platelet Count 183 x10^3/uL (140-400) 210 x10^3/uL (140-400) Neutrophils (%) (Auto) 64 % (31-73) 84 % (31-73) Lymphocytes (%) (Auto) 14 % (24-48) 10 % (24-48) Monocytes (%) (Auto) 22 % (0-9) 7 % (0-9) Eosinophils (%) (Auto) 0 % (0-3) 0 % (0-3) Basophils (%) (Auto) 0 % (0-3) 0 % (0-3) Neutrophils # (Auto) 3.9 x10^3uL (1.8-7.7) 3.8 x10^3uL (1.8-7.7) Lymphocytes # (Auto) 0.8 x10^3/uL (1.0-4.8) 0.4 x10^3/uL (1.0-4.8) Monocytes # (Auto) 1.3 x10^3/uL (0.0-1.1) 0.3 x10^3/uL (0.0-1.1) Eosinophils # (Auto) 0.0 x10^3/uL (0.0-0.7) 0.0 x10^3/uL (0.0-0.7) Basophils # (Auto) 0.0 x10^3/uL (0.0-0.2) 0.0 x10^3/uL (0.0-0.2) Segmented Neutrophils % 37 % (35-66) Band Neutrophils % 33 % (0-9) Lymphocytes % 15 % (24-48) Monocytes % 14 % (0-10) Metamyelocytes % 1 % (0-0) Toxic Granulation Present Toxic Vacuolation Present Platelet Estimate Adequate (ADEQUATE) Large Platelets Present Prothrombin Time 14.7 SEC (11.7-14.0) Prothromb Time International Ratio 1.2 (0.8-1.1) Activated Partial Thromboplast Time 31 SEC (24-38) Sodium Level 134 mmol/L (136-145) 136 mmol/L (136-145) 135 mmol/L (136-145) Potassium Level 3.9 mmol/L (3.5-5.1) 4.0 mmol/L (3.5-5.1) 4.0 mmol/L (3.5-5.1) Chloride Level 99 mmol/L (98-107) 102 mmol/L (98-107) 100 mmol/L (98-107) Carbon Dioxide Level 29 mmol/L (21-32) 30 mmol/L (21-32) 32 mmol/L (21-32) Anion Gap 6 (6-14) 4 (6-14) 3 (6-14) Blood Urea Nitrogen 23 mg/dL (7-20) 21 mg/dL (7-20) 29 mg/dL (7-20) Creatinine 0.9 mg/dL (0.6-1.0) 1.0 mg/dL (0.6-1.0) 1.0 mg/dL (0.6-1.0) Estimated GFR (Cockcroft-Gault) 59.9 53.1 53.1 BUN/Creatinine Ratio 26 (6-20) Glucose Level 132 mg/dL (70-99) 178 mg/dL (70-99) 130 mg/dL (70-99) Lactic Acid Level 1.5 mmol/L (0.4-2.0) Calcium Level 9.6 mg/dL (8.5-10.1) 8.9 mg/dL (8.5-10.1) 9.0 mg/dL (8.5-10.1) Magnesium Level 2.2 mg/dL (1.8-2.4) 2.0 mg/dL (1.8-2.4) Total Bilirubin 0.7 mg/dL (0.2-1.0) Aspartate Amino Transf (AST/SGOT) 40 U/L (15-37) Alanine Aminotransferase (ALT/SGPT) 38 U/L (14-59) Alkaline Phosphatase 59 U/L (46-116) Troponin I Quantitative < 0.017 ng/mL (0.000-0.055) < 0.017 ng/mL (0.000-0.055) ZW-Rkk-D-Type Natriuretic Peptide 617 pg/mL (0-449) Total Protein 7.4 g/dL (6.4-8.2) Albumin 3.1 g/dL (3.4-5.0) Albumin/Globulin Ratio 0.7 (1.0-1.7) Thyroid Stimulating Hormone (TSH) 1.710 uIU/mL (0.358-3.74) Free Thyroxine 1.25 ng/dL (0.76-1.46) Free Triiodothyronine (T3) pg/mL 1.07 pg/mL (2.18-3.98) Triglycerides Level 61 mg/dL (0-150) Cholesterol Level 147 mg/dL (0-200) LDL Cholesterol, Calculated 79 mg/dL (0-100) VLDL Cholesterol, Calculated 12 mg/dL (0-40) Non-HDL Cholesterol Calculated 91 mg/dL (0-129) HDL Cholesterol 56 mg/dL (40-60) Cholesterol/HDL Ratio 2.6 Laboratory Tests Test 12/20/16 04:55 Sodium Level 135 mmol/L (136-145) Potassium Level 4.0 mmol/L (3.5-5.1) Chloride Level 100 mmol/L (98-107) Carbon Dioxide Level 32 mmol/L (21-32) Anion Gap 3 (6-14) Blood Urea Nitrogen 29 mg/dL (7-20) Creatinine 1.0 mg/dL (0.6-1.0) Estimated GFR (Cockcroft-Gault) 53.1 Glucose Level 130 mg/dL (70-99) Calcium Level 9.0 mg/dL (8.5-10.1) Magnesium Level 2.0 mg/dL (1.8-2.4) Medications Current Medications Sodium Chloride 1,000 ml @ 1,000 mls/hr 1X ONCE IV Last administered on 14:06; Start 12/18/16 at 13:15; Stop 12/18/16 at 14:14; Status DC Albuterol Sulfate (Ventolin Neb Soln) 5 mg 1X ONCE NEB Last administered on 13:42; Start 12/18/16 at 13:15; Stop 12/18/16 at 14:03; Status DC Methylprednisolone Sodium Succinate (SOLU-Medrol 125MG VIAL) 125 mg 1X ONCE IV Last administered on 12/18/16 14:07; Start 12/18/16 at 13:15; Stop 12/18/16 at 14:03; Status DC Benzonatate (Tessalon Perle) 100 mg 1X ONCE PO Last administered on 12/18/16 14:08; Start 12/18/16 at 13:15; Stop 12/18/16 at 14:03; Status DC Levofloxacin/ Dextrose 100 ml @ 100 mls/hr 1X ONCE IV Last administered on 14:07; Start 12/18/16 at 13:45; Stop 12/18/16 at 14:44; Status DC Ondansetron HCl (Zofran) 4 mg PRN Q8HRS PRN IV NAUSEA/VOMITING Last administered on 12/18/16 14:07; Start 12/18/16 at 13:45; Stop 12/19/16 at 13:44; Status DC Albuterol/ Ipratropium (Duoneb) 3 ml Q4HRS W/A NEB Last administered on 07:26; Start 12/18/16 at 18:00 Budesonide (Pulmicort) 0.5 mg RTBID NEB Last administered on 12/20/16 07:25; Start 12/18/16 at 20:00 Levofloxacin (Levaquin) 500 mg DAILY06 PO Last administered on 12/20/16 05:35; Start 12/18/16 at 15:00 Guaifenesin (Robitussin Dm) 10 ml PRN Q6HRS PRN PO COUGH Last administered on 06:24; Start 12/18/16 at 14:45 Benzonatate (Tessalon Perle) 100 mg PRN TID PRN PO cough Last administered on 04:37; Start 12/18/16 at 14:45; Stop 12/19/16 at 14:00; Status DC Saliva Substitute (Biotene Moisturizing Mouth) 2 spray PRN Q15MIN PRN PO DRY MOUTH; Start 12/18/16 at 15:45 Prednisone (Prednisone) 40 mg DAILY PO Last administered on 12/20/16 09:06; Start 12/19/16 at 09:00 Saliva Substitute (Biotene Moisturizing Mouth) 2 spray PRN Q15MIN PRN PO DRY MOUTH; Start 12/18/16 at 16:00; Status Cancel Enoxaparin Sodium (Lovenox Per Pharmacy Prophylaxis Dosing) 1 each PRN DAILY PRN MC SEE COMMENTS; Start 12/19/16 at 09:00; Status UNV Enoxaparin Sodium (Lovenox 30mg Syringe) 30 mg Q24H SQ Last administered on 12/19 17:24; Start 12/18/16 at 18:00 Furosemide (Lasix) 40 mg 1X ONCE PO Last administered on 12/18/16 18:07; Start 12/18/16 at 18:00; Stop 12/18/16 at 18:01; Status DC Levothyroxine Sodium (Synthroid) 75 mcg DAILY07 PO Last administered on 06:22; Start 12/19/16 at 07:00 Simvastatin (Zocor) 40 mg QHS PO Last administered on 12/19/16 20:39; Start 12/18/16 at 21:00 Non-Formulary Medication 1 tab WEEKLY PO ; Start 12/25/16 at 09:00; Status UNV Raloxifene HCl (Evista) 60 mg DAILY PO Last administered on 12/20/16 09:06; Start 12/19/16 at 09:00 Albuterol Sulfate (Ventolin Neb Soln) 2.5 mg PRN Q4HRS PRN NEB SHORTNESS OF BREATH; Start 12/19/16 at 08:15 Benzonatate (Tessalon Perle) 100 mg TID PO Last administered on 12/20/16 09:05 ; Start 12/19/16 at 14:00 Furosemide (Lasix) 40 mg DAILY PO Last administered on 12/20/16 09:06; Start at 12:00 Famotidine (Pepcid) 20 mg DAILY PO Last administered on 12/20/16 09:05; Start 12/19/16 at 14:30 Acetaminophen (Tylenol) 650 mg PRN Q6HRS PRN PO FEVER Last administered on 09:05; Start 12/19/16 at 16:30 Ondansetron HCl (Zofran) 4 mg PRN Q6HRS PRN IV NAUSEA/VOMITING; Start 12/19/16 at 16:30 Hydralazine HCl (Apresoline) 10 mg PRN Q4HRS PRN IVP ELEVATED BP, SEE COMMENTS ; Start 12/19/16 at 16:30 Docusate Sodium (Colace) 100 mg PRN DAILY PRN PO CONSTIPATION; Start 12/19/16 at 16:30 Fentanyl Citrate (Fentanyl 2ml Vial) 50 mcg PRN Q2HR PRN IV severe pain Last administered on 12/19/16 21:40; Start 12/19/16 at 21:00; Stop 12/20/16 at 09:14; Status DC Fentanyl Citrate (Fentanyl 2ml Vial) 25 mcg PRN Q4HRS PRN IV severe pain; Start 12/20/16 at 21:00 Tramadol HCl (Ultram) 50 mg PRN Q6HRS PRN PO PAIN Last administered on 10:28; Start 12/20/16 at 09:15 Active Scripts Active Reported Evista (Raloxifene Hcl) 60 Mg Tablet 1 Tab PO DAILY Amlodipine Besylate 5 Mg Tablet 5 Mg PO DAILY Metoprolol Succinate ( Xl ) (Metoprolol Succinate) 25 Mg Tab.er.24h 2 Tab PO DAILY Lisinopril 40 Mg Tablet 1 Tab PO DAILY Symbicort 160-4.5 Mcg Inhaler (Budesonide/Formoterol Fumarate) 10.2 Gm Hfa.aer.ad 2 Puff IH BID Spiriva (Tiotropium [place]) 18 Mcg Cap.w.dev 1 Cap IH DAILY Levothyroxine Sodium 75 Mcg Tablet 1 Tab PO DAILY Simvastatin 40 Mg Tablet 1 Tab PO QHS Vitals/I & O Vital Sign - Last 24 Hours 12/19/16 12/19/16 12/19/16 12/19/16 11:36 14:30 15:16 19:09 Temp 97.7 97.7 Pulse 85 Resp 18 B/P (MAP) 107/57 (74) Pulse Ox 98 94 98 93 O2 Delivery Nasal Cannula Nasal Cannula Nasal Cannula Nasal Cannula O2 Flow Rate 3.0 3.0 3.0 2.0 12/19/16 12/19/16 12/19/16 12/19/16 19:59 20:00 21:40 23:00 Temp 98.5 97.5 98.5 97.5 Pulse 94 66 Resp 18 20 18 B/P (MAP) 108/51 (70) 102/48 (66) Pulse Ox 93 92 O2 Delivery Nasal Cannula Nasal Cannula Nasal Cannula Nasal Cannula O2 Flow Rate 2.0 2.0 2.0 2.0 12/20/16 12/20/16 12/20/16 12/20/16 07:15 07:28 07:35 08:00 Temp 96.4 96.4 Pulse 72 Resp 18 B/P (MAP) 107/54 (71) Pulse Ox 97 98 98 O2 Delivery Nasal Cannula Nasal Cannula Nasal Cannula Nasal Cannula O2 Flow Rate 2.0 2.0 2.0 2.0 Intake and Output 12/19/16 12/19/16 12/20/16 15:00 23:00 07:00 Intake Total 270 ml 900 ml 120 ml Balance 270 ml 900 ml 120 ml ANEUDY DORSEY MD Dec 20, 2016 11:25
[2016-12-20 14:30] VITALS: BP 98/59
--- NOTE | 2016-12-20 15:48 | PDOC ---
PROGRESS NOTES Subjective Subjective The patient is feeling better. Objective Objective Vital Signs Date Time Temp Pulse Resp B/P (MAP) Pulse Ox O2 Delivery O2 Flow Rate FiO2 12/20/16 15:43 Nasal Cannula 2.0 12/20/16 14:30 97.7 60 18 98/59 (72) 92 97.7 Intake and Output 12/20/16 07:00 Intake Total 1290 ml Balance 1290 ml Intake Oral 1290 ml # Voids 2 Physical Exam Abdomen: Normal bowel sounds Heart: Regular rate General: No acute distress Lungs: Other (mildly decreased breath sounds) Assessment Assessment Problems Medical Problems: (1) COPD exacerbation Status: Acute (2) Elevated brain natriuretic peptide (BNP) level Status: Acute (3) Hypoxia Status: Acute 1. Acute on chronic diastolic heart failure; NT pro BNP mildly elevated. CXR with pulmonary edema versus PNA. Echo revealed preserved LV function- no WMA present. Improved with Lasix. continue mild diuresis as BP allows. 2. Acute on chronic respiratory failure with h/o COPD; improved. per pulm 3. CAD s/p CABG; stable. CP free. Troponin not significantly elevated. Obtain records from [facility] [place]. Continue secondary prevention measures. 4. PVD; stable. Does reports some resting and exertional symptoms. Will defer to outpatient technical planner. 5. Hypertension; low-normotensive. Hold antiHTN therapy as warranted 6. Hyperlipidemia; continue statin therapy. 7. Hypothyroidism; Comment Review of Relevant I have reviewed the following items praveen (where applicable) has been applied. Labs Laboratory Tests Test 12/19/16 04:00 12/20/16 04:55 White Blood Count 4.5 x10^3/uL (4.0-11.0) Red Blood Count 3.82 x10^6/uL (3.50-5.40) Hemoglobin 12.2 g/dL (12.0-15.5) Hematocrit 35.7 % (36.0-47.0) Mean Corpuscular Volume 94 fL (79-100) Mean Corpuscular Hemoglobin 32 pg (25-35) Mean Corpuscular Hemoglobin Concent 34 g/dL (31-37) Red Cell Distribution Width 13.0 % (11.5-14.5) Platelet Count 210 x10^3/uL (140-400) Neutrophils (%) (Auto) 84 % (31-73) Lymphocytes (%) (Auto) 10 % (24-48) Monocytes (%) (Auto) 7 % (0-9) Eosinophils (%) (Auto) 0 % (0-3) Basophils (%) (Auto) 0 % (0-3) Neutrophils # (Auto) 3.8 x10^3uL (1.8-7.7) Lymphocytes # (Auto) 0.4 x10^3/uL (1.0-4.8) Monocytes # (Auto) 0.3 x10^3/uL (0.0-1.1) Eosinophils # (Auto) 0.0 x10^3/uL (0.0-0.7) Basophils # (Auto) 0.0 x10^3/uL (0.0-0.2) Sodium Level 136 mmol/L (136-145) 135 mmol/L (136-145) Potassium Level 4.0 mmol/L (3.5-5.1) 4.0 mmol/L (3.5-5.1) Chloride Level 102 mmol/L (98-107) 100 mmol/L (98-107) Carbon Dioxide Level 30 mmol/L (21-32) 32 mmol/L (21-32) Anion Gap 4 (6-14) 3 (6-14) Blood Urea Nitrogen 21 mg/dL (7-20) 29 mg/dL (7-20) Creatinine 1.0 mg/dL (0.6-1.0) 1.0 mg/dL (0.6-1.0) Estimated GFR (Cockcroft-Gault) 53.1 53.1 Glucose Level 178 mg/dL (70-99) 130 mg/dL (70-99) Calcium Level 8.9 mg/dL (8.5-10.1) 9.0 mg/dL (8.5-10.1) Troponin I Quantitative < 0.017 ng/mL (0.000-0.055) Triglycerides Level 61 mg/dL (0-150) Cholesterol Level 147 mg/dL (0-200) LDL Cholesterol, Calculated 79 mg/dL (0-100) VLDL Cholesterol, Calculated 12 mg/dL (0-40) Non-HDL Cholesterol Calculated 91 mg/dL (0-129) HDL Cholesterol 56 mg/dL (40-60) Cholesterol/HDL Ratio 2.6 Magnesium Level 2.0 mg/dL (1.8-2.4) Laboratory Tests Test 12/20/16 04:55 Sodium Level 135 mmol/L (136-145) Potassium Level 4.0 mmol/L (3.5-5.1) Chloride Level 100 mmol/L (98-107) Carbon Dioxide Level 32 mmol/L (21-32) Anion Gap 3 (6-14) Blood Urea Nitrogen 29 mg/dL (7-20) Creatinine 1.0 mg/dL (0.6-1.0) Estimated GFR (Cockcroft-Gault) 53.1 Glucose Level 130 mg/dL (70-99) Calcium Level 9.0 mg/dL (8.5-10.1) Magnesium Level 2.0 mg/dL (1.8-2.4) Medications Current Medications Sodium Chloride 1,000 ml @ 1,000 mls/hr 1X ONCE IV Last administered on 14:06; Start 12/18/16 at 13:15; Stop 12/18/16 at 14:14; Status DC Albuterol Sulfate (Ventolin Neb Soln) 5 mg 1X ONCE NEB Last administered on 13:42; Start 12/18/16 at 13:15; Stop 12/18/16 at 14:03; Status DC Methylprednisolone Sodium Succinate (SOLU-Medrol 125MG VIAL) 125 mg 1X ONCE IV Last administered on 12/18/16 14:07; Start 12/18/16 at 13:15; Stop 12/18/16 at 14:03; Status DC Benzonatate (Tessalon Perle) 100 mg 1X ONCE PO Last administered on 12/18/16 14:08; Start 12/18/16 at 13:15; Stop 12/18/16 at 14:03; Status DC Levofloxacin/ Dextrose 100 ml @ 100 mls/hr 1X ONCE IV Last administered on 14:07; Start 12/18/16 at 13:45; Stop 12/18/16 at 14:44; Status DC Ondansetron HCl (Zofran) 4 mg PRN Q8HRS PRN IV NAUSEA/VOMITING Last administered on 12/18/16 14:07; Start 12/18/16 at 13:45; Stop 12/19/16 at 13:44; Status DC Albuterol/ Ipratropium (Duoneb) 3 ml Q4HRS W/A NEB Last administered on 15:41; Start 12/18/16 at 18:00 Budesonide (Pulmicort) 0.5 mg RTBID NEB Last administered on 12/20/16 07:25; Start 12/18/16 at 20:00 Levofloxacin (Levaquin) 500 mg DAILY06 PO Last administered on 12/20/16 05:35; Start 12/18/16 at 15:00 Guaifenesin (Robitussin Dm) 10 ml PRN Q6HRS PRN PO COUGH Last administered on 06:24; Start 12/18/16 at 14:45 Benzonatate (Tessalon Perle) 100 mg PRN TID PRN PO cough Last administered on 04:37; Start 12/18/16 at 14:45; Stop 12/19/16 at 14:00; Status DC Saliva Substitute (Biotene Moisturizing Mouth) 2 spray PRN Q15MIN PRN PO DRY MOUTH; Start 12/18/16 at 15:45 Prednisone (Prednisone) 40 mg DAILY PO Last administered on 12/20/16 09:06; Start 12/19/16 at 09:00 Saliva Substitute (Biotene Moisturizing Mouth) 2 spray PRN Q15MIN PRN PO DRY MOUTH; Start 12/18/16 at 16:00; Status Cancel Enoxaparin Sodium (Lovenox Per Pharmacy Prophylaxis Dosing) 1 each PRN DAILY PRN MC SEE COMMENTS; Start 12/19/16 at 09:00; Status UNV Enoxaparin Sodium (Lovenox 30mg Syringe) 30 mg Q24H SQ Last administered on 12/19 17:24; Start 12/18/16 at 18:00 Furosemide (Lasix) 40 mg 1X ONCE PO Last administered on 12/18/16 18:07; Start 12/18/16 at 18:00; Stop 12/18/16 at 18:01; Status DC Levothyroxine Sodium (Synthroid) 75 mcg DAILY07 PO Last administered on 06:22; Start 12/19/16 at 07:00 Simvastatin (Zocor) 40 mg QHS PO Last administered on 12/19/16 20:39; Start 12/18/16 at 21:00 Non-Formulary Medication 1 tab WEEKLY PO ; Start 12/25/16 at 09:00; Status UNV Raloxifene HCl (Evista) 60 mg DAILY PO Last administered on 12/20/16 09:06; Start 12/19/16 at 09:00 Albuterol Sulfate (Ventolin Neb Soln) 2.5 mg PRN Q4HRS PRN NEB SHORTNESS OF BREATH; Start 12/19/16 at 08:15 Benzonatate (Tessalon Perle) 100 mg TID PO Last administered on 12/20/16 15:42 ; Start 12/19/16 at 14:00 Furosemide (Lasix) 40 mg DAILY PO Last administered on 12/20/16 09:06; Start at 12:00 Famotidine (Pepcid) 20 mg DAILY PO Last administered on 12/20/16 09:05; Start 12/19/16 at 14:30 Acetaminophen (Tylenol) 650 mg PRN Q6HRS PRN PO FEVER Last administered on 09:05; Start 12/19/16 at 16:30 Ondansetron HCl (Zofran) 4 mg PRN Q6HRS PRN IV NAUSEA/VOMITING; Start 12/19/16 at 16:30 Hydralazine HCl (Apresoline) 10 mg PRN Q4HRS PRN IVP ELEVATED BP, SEE COMMENTS ; Start 12/19/16 at 16:30 Docusate Sodium (Colace) 100 mg PRN DAILY PRN PO CONSTIPATION; Start 12/19/16 at 16:30 Fentanyl Citrate (Fentanyl 2ml Vial) 50 mcg PRN Q2HR PRN IV severe pain Last administered on 12/19/16 21:40; Start 12/19/16 at 21:00; Stop 12/20/16 at 09:14; Status DC Fentanyl Citrate (Fentanyl 2ml Vial) 25 mcg PRN Q4HRS PRN IV severe pain; Start 12/20/16 at 21:00 Tramadol HCl (Ultram) 50 mg PRN Q6HRS PRN PO PAIN Last administered on 10:28; Start 12/20/16 at 09:15 Active Scripts Active Reported Evista (Raloxifene Hcl) 60 Mg Tablet 1 Tab PO DAILY Amlodipine Besylate 5 Mg Tablet 5 Mg PO DAILY Metoprolol Succinate ( Xl ) (Metoprolol Succinate) 25 Mg Tab.er.24h 2 Tab PO DAILY Lisinopril 40 Mg Tablet 1 Tab PO DAILY Symbicort 160-4.5 Mcg Inhaler (Budesonide/Formoterol Fumarate) 10.2 Gm Hfa.aer.ad 2 Puff IH BID Spiriva (Tiotropium [place]) 18 Mcg Cap.w.dev 1 Cap IH DAILY Levothyroxine Sodium 75 Mcg Tablet 1 Tab PO DAILY Simvastatin 40 Mg Tablet 1 Tab PO QHS Vitals/I & O Vital Sign - Last 24 Hours 12/19/16 12/19/16 12/19/16 12/19/16 19:09 19:59 20:00 21:40 Temp 98.5 98.5 Pulse 94 Resp 18 20 B/P (MAP) 108/51 (70) Pulse Ox 93 93 O2 Delivery Nasal Cannula Nasal Cannula Nasal Cannula Nasal Cannula O2 Flow Rate 2.0 2.0 2.0 2.0 12/19/16 12/20/16 12/20/16 12/20/16 23:00 07:15 07:28 07:35 Temp 97.5 96.4 97.5 96.4 Pulse 66 72 Resp 18 18 B/P (MAP) 102/48 (66) 107/54 (71) Pulse Ox 92 97 98 98 O2 Delivery Nasal Cannula Nasal Cannula Nasal Cannula Nasal Cannula O2 Flow Rate 2.0 2.0 2.0 2.0 12/20/16 12/20/16 12/20/16 12/20/16 08:00 10:30 14:30 15:43 Temp 97.7 97.7 97.7 97.7 Pulse 90 60 Resp 18 18 B/P (MAP) 107/53 (71) 98/59 (72) Pulse Ox 93 92 O2 Delivery Nasal Cannula Nasal Cannula Nasal Cannula Nasal Cannula O2 Flow Rate 2.0 1.5 1.5 2.0 Intake and Output 12/19/16 12/19/16 12/20/16 15:00 23:00 07:00 Intake Total 270 ml 900 ml 120 ml Balance 270 ml 900 ml 120 ml LYNDSEY DARDEN MD Dec 20, 2016 15:48
[2016-12-20] MEDS: ENOXAPARIN 30 MG/0.3 ML SYRINGE. SQ SCH (18:10)
[2016-12-20 19:00] VITALS: BP 106/46
[2016-12-20] MEDS: SIMVASTATIN 40 MG TABLET. PO SCH (20:27)
[2016-12-20] MEDS ORDERED: fentaNYL PF VIAL 100 MCG/2 ML VIAL IV PRN (21:00)
[2016-12-20 22:32] VITALS: BP 110/51
[2016-12-21] MEDS: ALBUTEROL SULFATE 2.5 MG/3 ML NEBU. NEB PRN (04:52)
[2016-12-21] MEDS: guaiFENesin DM 200MG/20MG 10 ML SYRUP PO PRN ×2 (05:29→14:11)
[2016-12-21] MEDS: LEVOTHYROXINE 75 MCG TABLET PO SCH (06:14)
[2016-12-21 07:00] VITALS: BP 118/59
[2016-12-21] MEDS: IPRATRPIUM/ALBUTEROL 0.5/2.5MG 3 ML NEBU. NEB SCH ×4 (07:12→20:18)
[2016-12-21] MEDS: BUDESONIDE 0.5 MG/2 ML NEBU. NEB SCH ×2 (07:12→20:18)
[2016-12-21] MEDS: predniSONE 20 MG TABLET PO SCH (09:13)
[2016-12-21] MEDS: RALOXIFENE 60 MG TABLET. PO SCH (09:13)
[2016-12-21] MEDS: BENZONATATE 100 MG CAPSULE. PO SCH ×3 (09:13→20:27)
[2016-12-21] MEDS: DOCUSATE SODIUM 100 MG CAPSULE. PO PRN (09:13)
[2016-12-21] MEDS: FUROSEMIDE 40 MG TABLET. PO SCH (09:13)
[2016-12-21] MEDS: FAMOTIDINE 20 MG TABLET. PO SCH (09:13)
[2016-12-21 11:00] VITALS: BP 100/62
--- NOTE | 2016-12-21 11:06 | PDOC ---
PROGRESS NOTES Chief Complaint Chief Complaint Acute hypoxic respiratory failure ASSESSMENT AND PLAN: 1. CHF exacerbation: grade1 DD. PO lasix, hold with increasing BUN 2. COPD exacerbation: with bronchitis; cont abx, steroids, nebs, suppl O2. expectorants 3. Chest pain with coughing 4. PCM: moderate, BMI < 20 5. Weakness/debility: OT/PT eval. may need rehab 6. Xerostomia 7. Prophylaxis History of Present Illness History of Present Illness productive cough, still some SOB Vitals Vitals Vital Signs Date Time Temp Pulse Resp B/P (MAP) Pulse Ox O2 Delivery O2 Flow Rate FiO2 12/21/16 08:00 Nasal Cannula 1.5 12/21/16 07:14 94 12/21/16 07:00 97.4 88 22 118/59 (78) 97.4 Physical Exam General: No acute distress Heart: Regular rate Lungs: Clear, Crackles Abdomen: Normal bowel sounds Extremities: No clubbing, No cyanosis, No edema, Other (1+ bilateral DP pulses) Skin: No rashes, No significant lesion AMANDA URIBE MD Dec 21, 2016 11:06
--- NOTE | 2016-12-21 14:13 | PDOC ---
CARDIO Progress Notes Date and Time Date of Service 12/21/16 Time of Evaluation 1220 Subjective Subjective: No Chest Pain, No shortness of breath, No Palpitations Vitals Vitals Vital Signs Date Time Temp Pulse Resp B/P (MAP) Pulse Ox O2 Delivery O2 Flow Rate FiO2 12/21/16 11:16 Nasal Cannula 1.0 12/21/16 11:00 97.4 80 18 100/62 (75) 96 97.4 Weight Weight [ ] Input and Output Intake and Output Intake and Output 12/21/16 07:00 Intake Total 1630 ml Balance 1630 ml Intake Oral 1630 ml # Voids 4 Physical Exam HEENT: Neck Supple W Full Motion Chest: Symmetric LUNGS: Clear to Auscultation Heart: RRR, no gallops, no murmurs Abdomen: Soft N/T Extremities: No Edema, No Calf Tenderness Neurology: alert, oriented, follow commands Assessment Assessment 1. Acute on chronic diastolic heart failure; Echo revealed preserved LV function- no WMA present. Improved. Continue supportive care. No aggressive diuresis warranted. 2. Acute on chronic respiratory failure with h/o COPD; improved. per pulm 3. CAD s/p CABG; stable. CP free. Troponins negative- AMI ruled out. Continue secondary prevention measures. 4. PVD; stable. Does reports some resting and exertional symptoms. Will defer to outpatient tool filer hand. 5. Hypertension; low-normotensive. Hold antiHTN therapy as warranted 6. Hyperlipidemia; LDL 79. continue statin therapy. 7. Hypothyroidism Records obtain from [facility]: H/o CAD s/p CABG in 1990 and in 1997. She had PCI in 2007. He last cath was in 02/2009 which had no areas of concern were identified. She has been evaluated by vascular surgeon for intermittent claudications. Attempted WEB SITE DESIGNER/stent placement, but were unsuccessful. Opted to treat medically. MAGDI HAYES APRN Dec 21, 2016 14:13
--- NOTE | 2016-12-21 14:39 | PDOC ---
PULMONARY PROGRESS NOTES Subjective PT FEEL BETTER LESS SOA Vitals Vital Signs Date Time Temp Pulse Resp B/P (MAP) Pulse Ox O2 Delivery O2 Flow Rate FiO2 12/21/16 11:16 Nasal Cannula 1.0 12/21/16 11:00 97.4 80 18 100/62 (75) 96 97.4 ROS: No Nausea, No Chest Pain, No Abdominal Pain, No Increase Cough Lungs: Clear, Crackles Cardiovascular: S1, S2 Abdomen: Soft Neuro Exam: Alert Extremities: No Edema Skin: Warm Labs Laboratory Tests Test 12/20/16 04:55 Sodium Level 135 mmol/L (136-145) Potassium Level 4.0 mmol/L (3.5-5.1) Chloride Level 100 mmol/L (98-107) Carbon Dioxide Level 32 mmol/L (21-32) Anion Gap 3 (6-14) Blood Urea Nitrogen 29 mg/dL (7-20) Creatinine 1.0 mg/dL (0.6-1.0) Estimated GFR (Cockcroft-Gault) 53.1 Glucose Level 130 mg/dL (70-99) Calcium Level 9.0 mg/dL (8.5-10.1) Magnesium Level 2.0 mg/dL (1.8-2.4) Medications Active Scripts Medications Dose Route/Sig Max Daily Dose Days Date Category Symbicort 160-4.5 Mcg Inhaler (Budesonide/Formoterol Fumarate) 10.2 Gm Hfa.aer.ad 2 Puff IH BID 12/18/16 Reported Spiriva (Tiotropium [place]) 18 Mcg Cap.w.dev 1 Cap IH DAILY 12/18/16 Reported Levothyroxine Sodium 75 Mcg Tablet 1 Tab PO DAILY 12/18/16 Reported Simvastatin 40 Mg Tablet 1 Tab PO QHS 12/18/16 Reported Fosamax (Alendronate Sodium) 70 Mg Tablet 1 Tab PO WEEKLY 12/18/16 Reported Impression . 1. Acute hypoxemic respiratory failure secondary to acute congestive heart failure. 2. Acute congestive heart failure. 3. Mild acute exacerbation of chronic obstructive pulmonary disease. 4. Doubt pneumonia. 5. Possible dysphagia and minimal aspiration. 6. Ivyl-so-demyezin protein malnutrition, present upon admission. ECHO <Conclusion> The left ventricle is normal size. The left ventricular systolic function is normal and the ejection fraction is within normal range. The Ejection Fraction is 60-65%. There is no significant aortic valvular stenosis. Doppler and Color Flow revealed no significant aortic regurgitation. Doppler and Color-flow revealed eccentric mild mitral regurgitation. Doppler and Color Flow revealed mild tricuspid regurgitation. The PA pressure was estimated at 34 mmHg. Plan . 1. diuresis. 2. Repeat chest x-ray, IMPROVED SUSPECT MOSTLY CHF 3. Continue steroids for now and Levaquin. 4. Speech eval. 5. A 6-minute walk prior to discharge. 6. Echocardiogram. REPORT NOTED ABDIFATAH ACHARYA MD Dec 21, 2016 14:39
[2016-12-21 15:00] VITALS: BP 114/64
[2016-12-21] MEDS: ENOXAPARIN 30 MG/0.3 ML SYRINGE. SQ SCH (18:34)
[2016-12-21 19:00] VITALS: BP 120/51
[2016-12-21] MEDS: SIMVASTATIN 40 MG TABLET. PO SCH (20:27)
[2016-12-21 23:00] VITALS: BP 134/61
[2016-12-22 05:19] LABS: BASO % 0 % (0-3); EOS % 0 % (0-3); HEMATOCRIT 41.2 % (36.0-47.0); HEMOGLOBIN 13.2 g/dL (12.0-15.5); LYMPH # 1.7 x10^3/uL (1.0-4.8); LYMPH % 12 % (24-48); MEAN CORPUSCULAR HEMOGLOBIN 30 pg (25-35); MEAN CORPUSCULAR HGB CONC 32 g/dL (31-37); MEAN CORPUSCULAR VOLUME 95 fL (79-100); MONO % 10 % (0-9); NEUT % 78 % (31-73); PLATELET COUNT 268 x10^3/uL (140-400); RED BLOOD COUNT 4.36 x10^6/uL (3.50-5.40); RED CELL DISTRIBUTION WIDTH 13.2 % (11.5-14.5); WHITE BLOOD COUNT 13.6 x10^3/uL (4.0-11.0)
[2016-12-22 05:31] LABS: CALCIUM 9.8 mg/dL (8.5-10.1); CREATININE 0.9 mg/dL (0.6-1.0); GFR 59.9; MAGNESIUM 1.9 mg/dL (1.8-2.4); POTASSIUM 3.4 mmol/L (3.5-5.1)
[2016-12-22 07:00] VITALS: BP 152/73
[2016-12-22] MEDS: BUDESONIDE 0.5 MG/2 ML NEBU. NEB SCH ×2 (07:09→19:08)
[2016-12-22] MEDS: IPRATRPIUM/ALBUTEROL 0.5/2.5MG 3 ML NEBU. NEB SCH ×3 (07:09→19:07)
[2016-12-22] MEDS: BENZONATATE 100 MG CAPSULE. PO SCH ×3 (08:27→20:13)
[2016-12-22] MEDS: RALOXIFENE 60 MG TABLET. PO SCH (08:27)
[2016-12-22] MEDS: LEVOTHYROXINE 75 MCG TABLET PO SCH (08:27)
[2016-12-22] MEDS: DOCUSATE SODIUM 100 MG CAPSULE. PO PRN (08:27)
[2016-12-22 08:28] LABS: PLT ESTIMATE ADEQUATE (ADEQUATE); TOXIC GRANULATION SLIGHT; TOXIC VACUOLATION SLIGHT
[2016-12-22] MEDS: predniSONE 20 MG TABLET PO SCH (08:28)
[2016-12-22] MEDS: FAMOTIDINE 20 MG TABLET. PO SCH (08:28)
--- NOTE | 2016-12-22 09:33 | PDOC ---
PULMONARY PROGRESS NOTES Subjective PT FEEL BETTER LESS SOA Vitals Vital Signs Date Time Temp Pulse Resp B/P (MAP) Pulse Ox O2 Delivery O2 Flow Rate FiO2 12/22/16 07:12 94 Nasal Cannula 1.0 12/22/16 07:00 98.1 97 17 152/73 (99) 98.1 ROS: No Nausea, No Chest Pain, No Abdominal Pain, No Increase Cough Lungs: Other (decrease bs) Cardiovascular: S1, S2 Abdomen: Soft Neuro Exam: Alert Extremities: No Edema Skin: Warm Labs Laboratory Tests Test 12/22/16 03:20 White Blood Count 13.6 x10^3/uL (4.0-11.0) Red Blood Count 4.36 x10^6/uL (3.50-5.40) Hemoglobin 13.2 g/dL (12.0-15.5) Hematocrit 41.2 % (36.0-47.0) Mean Corpuscular Volume 95 fL (79-100) Mean Corpuscular Hemoglobin 30 pg (25-35) Mean Corpuscular Hemoglobin Concent 32 g/dL (31-37) Red Cell Distribution Width 13.2 % (11.5-14.5) Platelet Count 268 x10^3/uL (140-400) Neutrophils (%) (Auto) 78 % (31-73) Lymphocytes (%) (Auto) 12 % (24-48) Monocytes (%) (Auto) 10 % (0-9) Eosinophils (%) (Auto) 0 % (0-3) Basophils (%) (Auto) 0 % (0-3) Neutrophils # (Auto) 10.6 x10^3uL (1.8-7.7) Lymphocytes # (Auto) 1.7 x10^3/uL (1.0-4.8) Monocytes # (Auto) 1.3 x10^3/uL (0.0-1.1) Eosinophils # (Auto) 0.0 x10^3/uL (0.0-0.7) Basophils # (Auto) 0.0 x10^3/uL (0.0-0.2) Segmented Neutrophils % 63 % (35-66) Band Neutrophils % 10 % (0-9) Lymphocytes % 13 % (24-48) Atypical Lymphocytes % (Manual) 1 % (0-0) Monocytes % 12 % (0-10) Metamyelocytes % 1 % (0-0) Toxic Granulation Slight Toxic Vacuolation Slight Dohle Bodies Present Platelet Estimate Adequate (ADEQUATE) Sodium Level 138 mmol/L (136-145) Potassium Level 3.4 mmol/L (3.5-5.1) Chloride Level 100 mmol/L (98-107) Carbon Dioxide Level 37 mmol/L (21-32) Anion Gap 1 (6-14) Blood Urea Nitrogen 26 mg/dL (7-20) Creatinine 0.9 mg/dL (0.6-1.0) Estimated GFR (Cockcroft-Gault) 59.9 Glucose Level 94 mg/dL (70-99) Calcium Level 9.8 mg/dL (8.5-10.1) Magnesium Level 1.9 mg/dL (1.8-2.4) Laboratory Tests Test 12/22/16 03:20 White Blood Count 13.6 x10^3/uL (4.0-11.0) Red Blood Count 4.36 x10^6/uL (3.50-5.40) Hemoglobin 13.2 g/dL (12.0-15.5) Hematocrit 41.2 % (36.0-47.0) Mean Corpuscular Volume 95 fL (79-100) Mean Corpuscular Hemoglobin 30 pg (25-35) Mean Corpuscular Hemoglobin Concent 32 g/dL (31-37) Red Cell Distribution Width 13.2 % (11.5-14.5) Platelet Count 268 x10^3/uL (140-400) Neutrophils (%) (Auto) 78 % (31-73) Lymphocytes (%) (Auto) 12 % (24-48) Monocytes (%) (Auto) 10 % (0-9) Eosinophils (%) (Auto) 0 % (0-3) Basophils (%) (Auto) 0 % (0-3) Neutrophils # (Auto) 10.6 x10^3uL (1.8-7.7) Lymphocytes # (Auto) 1.7 x10^3/uL (1.0-4.8) Monocytes # (Auto) 1.3 x10^3/uL (0.0-1.1) Eosinophils # (Auto) 0.0 x10^3/uL (0.0-0.7) Basophils # (Auto) 0.0 x10^3/uL (0.0-0.2) Segmented Neutrophils % 63 % (35-66) Band Neutrophils % 10 % (0-9) Lymphocytes % 13 % (24-48) Atypical Lymphocytes % (Manual) 1 % (0-0) Monocytes % 12 % (0-10) Metamyelocytes % 1 % (0-0) Toxic Granulation Slight Toxic Vacuolation Slight Dohle Bodies Present Platelet Estimate Adequate (ADEQUATE) Sodium Level 138 mmol/L (136-145) Potassium Level 3.4 mmol/L (3.5-5.1) Chloride Level 100 mmol/L (98-107) Carbon Dioxide Level 37 mmol/L (21-32) Anion Gap 1 (6-14) Blood Urea Nitrogen 26 mg/dL (7-20) Creatinine 0.9 mg/dL (0.6-1.0) Estimated GFR (Cockcroft-Gault) 59.9 Glucose Level 94 mg/dL (70-99) Calcium Level 9.8 mg/dL (8.5-10.1) Magnesium Level 1.9 mg/dL (1.8-2.4) Medications Active Scripts Medications Dose Route/Sig Max Daily Dose Days Date Category Symbicort 160-4.5 Mcg Inhaler (Budesonide/Formoterol Fumarate) 10.2 Gm Hfa.aer.ad 2 Puff IH BID 12/18/16 Reported Spiriva (Tiotropium [place]) 18 Mcg Cap.w.dev 1 Cap IH DAILY 12/18/16 Reported Levothyroxine Sodium 75 Mcg Tablet 1 Tab PO DAILY 12/18/16 Reported Simvastatin 40 Mg Tablet 1 Tab PO QHS 12/18/16 Reported Fosamax (Alendronate Sodium) 70 Mg Tablet 1 Tab PO WEEKLY 12/18/16 Reported Impression . 1. Acute hypoxemic respiratory failure secondary to acute congestive heart failure. 2. Acute congestive heart failure. 3. Mild acute exacerbation of chronic obstructive pulmonary disease. 4. Doubt pneumonia. 5. Possible dysphagia and minimal aspiration. 6. [id number] protein malnutrition, present upon admission. ECHO <Conclusion> The left ventricle is normal size. The left ventricular systolic function is normal and the ejection fraction is within normal range. The Ejection Fraction is 60-65%. There is no significant aortic valvular stenosis. Doppler and Color Flow revealed no significant aortic regurgitation. Doppler and Color-flow revealed eccentric mild mitral regurgitation. Doppler and Color Flow revealed mild tricuspid regurgitation. The PA pressure was estimated at 34 mmHg. Plan . 1. diuresis. 2. Repeat chest x-ray, IMPROVED SUSPECT MOSTLY CHF 3. Continue steroids for now and Levaquin. 4. A 6-minute walk prior to discharge. 5. Echocardiogram. REPORT NOTED ok with dc home ABDIFATAH ACHARYA MD Dec 22, 2016 09:33
[2016-12-22 11:06] VITALS: BP 122/44
[2016-12-22] MEDS: ALBUTEROL SULFATE 2.5 MG/3 ML NEBU. NEB PRN (11:22)
[2016-12-22] MEDS: ACETAMINOPHEN 325 MG TABLET. PO PRN ×2 (11:44→18:11)
--- NOTE | 2016-12-22 12:10 | PDOC ---
PROGRESS NOTES Chief Complaint Chief Complaint Acute hypoxic respiratory failure ASSESSMENT AND PLAN: 1. CHF exacerbation: grade1 DD. PO lasix, restart with stable BUN, creat. monitor closely 2. COPD exacerbation: with bronchitis; cont abx, steroids, nebs, suppl O2. expectorants 3. Chest pain with coughing 4. PCM: moderate, BMI < 20 5. Weakness/debility: OT/PT eval. may need rehab 6. Xerostomia: saliva substitute 7. Prophylaxis: lovenox. 8. Dispo: poss home in AM; 6 min walk prior. HH by PT rec.s History of Present Illness History of Present Illness slowly improving, cough zach, remains productive. no F/C Vitals Vitals Vital Signs Date Time Temp Pulse Resp B/P (MAP) Pulse Ox O2 Delivery O2 Flow Rate FiO2 12/22/16 11:23 Nasal Cannula 1.0 12/22/16 11:06 97.9 99 20 122/44 (70) 92 97.9 Physical Exam General: Alert, Cooperative, No acute distress Heart: Regular rate Lungs: Other (coarse UA rhonchi) Abdomen: Normal bowel sounds, No tenderness Extremities: No clubbing, No edema Skin: No rashes, No significant lesion Labs LABS Laboratory Tests Test 12/22/16 03:20 White Blood Count 13.6 x10^3/uL (4.0-11.0) Red Blood Count 4.36 x10^6/uL (3.50-5.40) Hemoglobin 13.2 g/dL (12.0-15.5) Hematocrit 41.2 % (36.0-47.0) Mean Corpuscular Volume 95 fL (79-100) Mean Corpuscular Hemoglobin 30 pg (25-35) Mean Corpuscular Hemoglobin Concent 32 g/dL (31-37) Red Cell Distribution Width 13.2 % (11.5-14.5) Platelet Count 268 x10^3/uL (140-400) Neutrophils (%) (Auto) 78 % (31-73) Lymphocytes (%) (Auto) 12 % (24-48) Monocytes (%) (Auto) 10 % (0-9) Eosinophils (%) (Auto) 0 % (0-3) Basophils (%) (Auto) 0 % (0-3) Neutrophils # (Auto) 10.6 x10^3uL (1.8-7.7) Lymphocytes # (Auto) 1.7 x10^3/uL (1.0-4.8) Monocytes # (Auto) 1.3 x10^3/uL (0.0-1.1) Eosinophils # (Auto) 0.0 x10^3/uL (0.0-0.7) Basophils # (Auto) 0.0 x10^3/uL (0.0-0.2) Segmented Neutrophils % 63 % (35-66) Band Neutrophils % 10 % (0-9) Lymphocytes % 13 % (24-48) Atypical Lymphocytes % (Manual) 1 % (0-0) Monocytes % 12 % (0-10) Metamyelocytes % 1 % (0-0) Toxic Granulation Slight Toxic Vacuolation Slight Dohle Bodies Present Platelet Estimate Adequate (ADEQUATE) Sodium Level 138 mmol/L (136-145) Potassium Level 3.4 mmol/L (3.5-5.1) Chloride Level 100 mmol/L (98-107) Carbon Dioxide Level 37 mmol/L (21-32) Anion Gap 1 (6-14) Blood Urea Nitrogen 26 mg/dL (7-20) Creatinine 0.9 mg/dL (0.6-1.0) Estimated GFR (Cockcroft-Gault) 59.9 Glucose Level 94 mg/dL (70-99) Calcium Level 9.8 mg/dL (8.5-10.1) Magnesium Level 1.9 mg/dL (1.8-2.4) Nutrition Consultation Dietary Evaluation: Recommendations by RD: Increase Calorie Intake, Protein supplementation Comments: ensure bid Expected Outcomes/Goals: to meet > 75% est nutr needs Malnutrition Findings: Body Fat Depletion (Non Severe: Mild Depletion Weight Status: Appropriate AMANDA URIBE MD Dec 22, 2016 12:10
[2016-12-22 14:54] VITALS: BP 127/70
[2016-12-22] MEDS: FUROSEMIDE 20 MG TABLET PO SCH (16:09)
[2016-12-22] MEDS: ENOXAPARIN 30 MG/0.3 ML SYRINGE. SQ SCH (18:11)
[2016-12-22 19:00] VITALS: BP 115/61
[2016-12-22] MEDS: SIMVASTATIN 40 MG TABLET. PO SCH (20:13)
[2016-12-22 23:00] VITALS: BP 123/63
[2016-12-23 05:03] LABS: BASO % 0 % (0-3); EOS % 0 % (0-3); HEMATOCRIT 38.6 % (36.0-47.0); HEMOGLOBIN 12.5 g/dL (12.0-15.5); LYMPH # 2.2 x10^3/uL (1.0-4.8); LYMPH % 20 % (24-48); MEAN CORPUSCULAR HEMOGLOBIN 31 pg (25-35); MEAN CORPUSCULAR HGB CONC 33 g/dL (31-37); MEAN CORPUSCULAR VOLUME 94 fL (79-100); MONO % 7 % (0-9); NEUT % 74 % (31-73); PLATELET COUNT 259 x10^3/uL (140-400); RED CELL DISTRIBUTION WIDTH 13.1 % (11.5-14.5); WHITE BLOOD COUNT 11.1 x10^3/uL (4.0-11.0)
[2016-12-23 05:20] LABS: CALCIUM 9.1 mg/dL (8.5-10.1); CREATININE 0.9 mg/dL (0.6-1.0); GFR 59.9; POTASSIUM 3.4 mmol/L (3.5-5.1)
[2016-12-23] MEDS: IPRATRPIUM/ALBUTEROL 0.5/2.5MG 3 ML NEBU. NEB SCH ×4 (06:56→19:38)
[2016-12-23] MEDS: BUDESONIDE 0.5 MG/2 ML NEBU. NEB SCH ×2 (06:56→19:38)
[2016-12-23 07:00] VITALS: BP 151/60
[2016-12-23] MEDS: LEVOTHYROXINE 75 MCG TABLET PO SCH (08:23)
[2016-12-23] MEDS: BENZONATATE 100 MG CAPSULE. PO SCH ×3 (09:54→20:33)
[2016-12-23] MEDS: RALOXIFENE 60 MG TABLET. PO SCH (09:54)
[2016-12-23] MEDS: DOCUSATE SODIUM 100 MG CAPSULE. PO PRN (09:55)
[2016-12-23] MEDS: FUROSEMIDE 20 MG TABLET PO SCH (09:55)
[2016-12-23] MEDS: FAMOTIDINE 20 MG TABLET. PO SCH (09:55)
[2016-12-23] MEDS: predniSONE 20 MG TABLET PO SCH (09:55)
--- NOTE | 2016-12-23 10:36 | PDOC ---
PULMONARY PROGRESS NOTES Subjective PT FEEL BETTER LESS SOA Vitals Vital Signs Date Time Temp Pulse Resp B/P (MAP) Pulse Ox O2 Delivery O2 Flow Rate FiO2 12/23/16 08:00 Nasal Cannula 1.0 12/23/16 07:00 97.8 96 18 151/60 (90) 92 97.8 ROS: No Nausea, No Chest Pain, No Abdominal Pain, No Increase Cough Lungs: Other (coarse UA rhonchi) Cardiovascular: S1, S2 Abdomen: Soft Neuro Exam: Alert Extremities: No Edema Skin: Warm Labs Laboratory Tests Test 12/22/16 03:20 12/23/16 03:00 12/23/16 03:30 White Blood Count 13.6 x10^3/uL (4.0-11.0) 11.1 x10^3/uL (4.0-11.0) Red Blood Count 4.36 x10^6/uL (3.50-5.40) 4.10 x10^6/uL (3.50-5.40) Hemoglobin 13.2 g/dL (12.0-15.5) 12.5 g/dL (12.0-15.5) Hematocrit 41.2 % (36.0-47.0) 38.6 % (36.0-47.0) Mean Corpuscular Volume 95 fL (79-100) 94 fL (79-100) Mean Corpuscular Hemoglobin 30 pg (25-35) 31 pg (25-35) Mean Corpuscular Hemoglobin Concent 32 g/dL (31-37) 33 g/dL (31-37) Red Cell Distribution Width 13.2 % (11.5-14.5) 13.1 % (11.5-14.5) Platelet Count 268 x10^3/uL (140-400) 259 x10^3/uL (140-400) Neutrophils (%) (Auto) 78 % (31-73) 74 % (31-73) Lymphocytes (%) (Auto) 12 % (24-48) 20 % (24-48) Monocytes (%) (Auto) 10 % (0-9) 7 % (0-9) Eosinophils (%) (Auto) 0 % (0-3) 0 % (0-3) Basophils (%) (Auto) 0 % (0-3) 0 % (0-3) Neutrophils # (Auto) 10.6 x10^3uL (1.8-7.7) 8.1 x10^3uL (1.8-7.7) Lymphocytes # (Auto) 1.7 x10^3/uL (1.0-4.8) 2.2 x10^3/uL (1.0-4.8) Monocytes # (Auto) 1.3 x10^3/uL (0.0-1.1) 0.8 x10^3/uL (0.0-1.1) Eosinophils # (Auto) 0.0 x10^3/uL (0.0-0.7) 0.0 x10^3/uL (0.0-0.7) Basophils # (Auto) 0.0 x10^3/uL (0.0-0.2) 0.0 x10^3/uL (0.0-0.2) Segmented Neutrophils % 63 % (35-66) Band Neutrophils % 10 % (0-9) Lymphocytes % 13 % (24-48) Atypical Lymphocytes % (Manual) 1 % (0-0) Monocytes % 12 % (0-10) Metamyelocytes % 1 % (0-0) Toxic Granulation Slight Toxic Vacuolation Slight Dohle Bodies Present Platelet Estimate Adequate (ADEQUATE) Sodium Level 138 mmol/L (136-145) 139 mmol/L (136-145) Potassium Level 3.4 mmol/L (3.5-5.1) 3.4 mmol/L (3.5-5.1) Chloride Level 100 mmol/L (98-107) 100 mmol/L (98-107) Carbon Dioxide Level 37 mmol/L (21-32) 39 mmol/L (21-32) Anion Gap 1 (6-14) 0 (6-14) Blood Urea Nitrogen 26 mg/dL (7-20) 25 mg/dL (7-20) Creatinine 0.9 mg/dL (0.6-1.0) 0.9 mg/dL (0.6-1.0) Estimated GFR (Cockcroft-Gault) 59.9 59.9 Glucose Level 94 mg/dL (70-99) 86 mg/dL (70-99) Calcium Level 9.8 mg/dL (8.5-10.1) 9.1 mg/dL (8.5-10.1) Magnesium Level 1.9 mg/dL (1.8-2.4) Laboratory Tests Test 12/23/16 03:00 12/23/16 03:30 White Blood Count 11.1 x10^3/uL (4.0-11.0) Red Blood Count 4.10 x10^6/uL (3.50-5.40) Hemoglobin 12.5 g/dL (12.0-15.5) Hematocrit 38.6 % (36.0-47.0) Mean Corpuscular Volume 94 fL (79-100) Mean Corpuscular Hemoglobin 31 pg (25-35) Mean Corpuscular Hemoglobin Concent 33 g/dL (31-37) Red Cell Distribution Width 13.1 % (11.5-14.5) Platelet Count 259 x10^3/uL (140-400) Neutrophils (%) (Auto) 74 % (31-73) Lymphocytes (%) (Auto) 20 % (24-48) Monocytes (%) (Auto) 7 % (0-9) Eosinophils (%) (Auto) 0 % (0-3) Basophils (%) (Auto) 0 % (0-3) Neutrophils # (Auto) 8.1 x10^3uL (1.8-7.7) Lymphocytes # (Auto) 2.2 x10^3/uL (1.0-4.8) Monocytes # (Auto) 0.8 x10^3/uL (0.0-1.1) Eosinophils # (Auto) 0.0 x10^3/uL (0.0-0.7) Basophils # (Auto) 0.0 x10^3/uL (0.0-0.2) Sodium Level 139 mmol/L (136-145) Potassium Level 3.4 mmol/L (3.5-5.1) Chloride Level 100 mmol/L (98-107) Carbon Dioxide Level 39 mmol/L (21-32) Anion Gap 0 (6-14) Blood Urea Nitrogen 25 mg/dL (7-20) Creatinine 0.9 mg/dL (0.6-1.0) Estimated GFR (Cockcroft-Gault) 59.9 Glucose Level 86 mg/dL (70-99) Calcium Level 9.1 mg/dL (8.5-10.1) Medications Active Scripts Medications Dose Route/Sig Max Daily Dose Days Date Category Symbicort 160-4.5 Mcg Inhaler (Budesonide/Formoterol Fumarate) 10.2 Gm Hfa.aer.ad 2 Puff IH BID 12/18/16 Reported Spiriva (Tiotropium [place]) 18 Mcg Cap.w.dev 1 Cap IH DAILY 12/18/16 Reported Levothyroxine Sodium 75 Mcg Tablet 1 Tab PO DAILY 12/18/16 Reported Simvastatin 40 Mg Tablet 1 Tab PO QHS 12/18/16 Reported Fosamax (Alendronate Sodium) 70 Mg Tablet 1 Tab PO WEEKLY 12/18/16 Reported Impression . 1. Acute hypoxemic respiratory failure secondary to acute congestive heart failure. 2. Acute congestive heart failure. 3. Mild acute exacerbation of chronic obstructive pulmonary disease. 4. Doubt pneumonia. 5. Possible dysphagia and minimal aspiration. 6. [id number] protein malnutrition, present upon admission. ECHO <Conclusion> The left ventricle is normal size. The left ventricular systolic function is normal and the ejection fraction is within normal range. The Ejection Fraction is 60-65%. There is no significant aortic valvular stenosis. Doppler and Color Flow revealed no significant aortic regurgitation. Doppler and Color-flow revealed eccentric mild mitral regurgitation. Doppler and Color Flow revealed mild tricuspid regurgitation. The PA pressure was estimated at 34 mmHg. Plan . 1. diuresis. 2. Repeat chest x-ray, IMPROVED SUSPECT MOSTLY CHF 3. Continue steroids for now and Levaquin. 4. A 6-minute walk prior to discharge. 5. Echocardiogram. REPORT NOTED 6. Continues to have exertional dyspnea/ suspect severe COPD. repeat CXR today. consider ABDIFATAH Barrera MD Dec 23, 2016 10:36
[2016-12-23 11:00] VITALS: BP 144/60
[2016-12-23] MEDS ORDERED: POTASSIUM CHLORIDE 20 MEQ TABLET.ER. PO ONE (11:30)
[2016-12-23 12:50] LABS: CKMB MASS 6.6 ng/mL (0.0-3.6)
--- NOTE | 2016-12-23 13:27 | PDOC ---
PROGRESS NOTES Chief Complaint Chief Complaint Acute hypoxic respiratory failure Acute hypoxic respiratory failure mild acute diastolic grade 1 CHF exacerbation mild COPD exacerbation with bronchitis mild/moderate malnutrition, BMI < 17 weakness/debility xerostomia chest pain with coughing plan: fu with pulm, card CXR repeated cont abx on levaquin duoneb add cough meds NC 1-2 L, 6 min walk today, dc home with HH tmr ptot dvt ppx lasix 40mg daily as per pulm decrease prednisone to 30mg daily replete K CHECK CE given new chest pain today History of Present Illness History of Present Illness slowly improving, cough zach, remains productive. no F/C still need NC left upper chest pain today, new to her cont having bl rib cage pain with coughing Vitals Vitals Vital Signs Date Time Temp Pulse Resp B/P (MAP) Pulse Ox O2 Delivery O2 Flow Rate FiO2 12/23/16 11:03 Nasal Cannula 1.0 12/23/16 11:00 97.8 84 18 144/60 (88) 93 97.8 Physical Exam General: Alert, Cooperative, No acute distress Heart: Regular rate Lungs: Other (bl decreased bs) Abdomen: Normal bowel sounds, No tenderness Extremities: No clubbing, No edema Skin: No rashes, No significant lesion Labs LABS Laboratory Tests Test 12/23/16 03:00 12/23/16 03:30 12/23/16 12:10 White Blood Count 11.1 x10^3/uL (4.0-11.0) Red Blood Count 4.10 x10^6/uL (3.50-5.40) Hemoglobin 12.5 g/dL (12.0-15.5) Hematocrit 38.6 % (36.0-47.0) Mean Corpuscular Volume 94 fL (79-100) Mean Corpuscular Hemoglobin 31 pg (25-35) Mean Corpuscular Hemoglobin Concent 33 g/dL (31-37) Red Cell Distribution Width 13.1 % (11.5-14.5) Platelet Count 259 x10^3/uL (140-400) Neutrophils (%) (Auto) 74 % (31-73) Lymphocytes (%) (Auto) 20 % (24-48) Monocytes (%) (Auto) 7 % (0-9) Eosinophils (%) (Auto) 0 % (0-3) Basophils (%) (Auto) 0 % (0-3) Neutrophils # (Auto) 8.1 x10^3uL (1.8-7.7) Lymphocytes # (Auto) 2.2 x10^3/uL (1.0-4.8) Monocytes # (Auto) 0.8 x10^3/uL (0.0-1.1) Eosinophils # (Auto) 0.0 x10^3/uL (0.0-0.7) Basophils # (Auto) 0.0 x10^3/uL (0.0-0.2) Sodium Level 139 mmol/L (136-145) Potassium Level 3.4 mmol/L (3.5-5.1) Chloride Level 100 mmol/L (98-107) Carbon Dioxide Level 39 mmol/L (21-32) Anion Gap 0 (6-14) Blood Urea Nitrogen 25 mg/dL (7-20) Creatinine 0.9 mg/dL (0.6-1.0) Estimated GFR (Cockcroft-Gault) 59.9 Glucose Level 86 mg/dL (70-99) Calcium Level 9.1 mg/dL (8.5-10.1) Creatine Kinase 157 U/L (26-192) Creatine Kinase MB (Mass) 6.6 ng/mL (0.0-3.6) Creatine Kinase MB Relative Index 4.2 % (0-4) Troponin I Quantitative < 0.017 ng/mL (0.000-0.055) Review of Systems Review of Systems no fever, chills, chest pain Assessment and Plan Assessmemt and Plan Problems Medical Problems: (1) COPD exacerbation Status: Acute (2) Elevated brain natriuretic peptide (BNP) level Status: Acute (3) Hypoxia Status: Acute Problems: Comment Review of Relevant I have reviewed the following items praveen (where applicable) has been applied. Labs Laboratory Tests Test 12/22/16 03:20 12/23/16 03:00 12/23/16 03:30 12/23/16 12:10 White Blood Count 13.6 x10^3/uL (4.0-11.0) 11.1 x10^3/uL (4.0-11.0) Red Blood Count 4.36 x10^6/uL (3.50-5.40) 4.10 x10^6/uL (3.50-5.40) Hemoglobin 13.2 g/dL (12.0-15.5) 12.5 g/dL (12.0-15.5) Hematocrit 41.2 % (36.0-47.0) 38.6 % (36.0-47.0) Mean Corpuscular Volume 95 fL (79-100) 94 fL (79-100) Mean Corpuscular Hemoglobin 30 pg (25-35) 31 pg (25-35) Mean Corpuscular Hemoglobin Concent 32 g/dL (31-37) 33 g/dL (31-37) Red Cell Distribution Width 13.2 % (11.5-14.5) 13.1 % (11.5-14.5) Platelet Count 268 x10^3/uL (140-400) 259 x10^3/uL (140-400) Neutrophils (%) (Auto) 78 % (31-73) 74 % (31-73) Lymphocytes (%) (Auto) 12 % (24-48) 20 % (24-48) Monocytes (%) (Auto) 10 % (0-9) 7 % (0-9) Eosinophils (%) (Auto) 0 % (0-3) 0 % (0-3) Basophils (%) (Auto) 0 % (0-3) 0 % (0-3) Neutrophils # (Auto) 10.6 x10^3uL (1.8-7.7) 8.1 x10^3uL (1.8-7.7) Lymphocytes # (Auto) 1.7 x10^3/uL (1.0-4.8) 2.2 x10^3/uL (1.0-4.8) Monocytes # (Auto) 1.3 x10^3/uL (0.0-1.1) 0.8 x10^3/uL (0.0-1.1) Eosinophils # (Auto) 0.0 x10^3/uL (0.0-0.7) 0.0 x10^3/uL (0.0-0.7) Basophils # (Auto) 0.0 x10^3/uL (0.0-0.2) 0.0 x10^3/uL (0.0-0.2) Segmented Neutrophils % 63 % (35-66) Band Neutrophils % 10 % (0-9) Lymphocytes % 13 % (24-48) Atypical Lymphocytes % (Manual) 1 % (0-0) Monocytes % 12 % (0-10) Metamyelocytes % 1 % (0-0) Toxic Granulation Slight Toxic Vacuolation Slight Dohle Bodies Present Platelet Estimate Adequate (ADEQUATE) Sodium Level 138 mmol/L (136-145) 139 mmol/L (136-145) Potassium Level 3.4 mmol/L (3.5-5.1) 3.4 mmol/L (3.5-5.1) Chloride Level 100 mmol/L (98-107) 100 mmol/L (98-107) Carbon Dioxide Level 37 mmol/L (21-32) 39 mmol/L (21-32) Anion Gap 1 (6-14) 0 (6-14) Blood Urea Nitrogen 26 mg/dL (7-20) 25 mg/dL (7-20) Creatinine 0.9 mg/dL (0.6-1.0) 0.9 mg/dL (0.6-1.0) Estimated GFR (Cockcroft-Gault) 59.9 59.9 Glucose Level 94 mg/dL (70-99) 86 mg/dL (70-99) Calcium Level 9.8 mg/dL (8.5-10.1) 9.1 mg/dL (8.5-10.1) Magnesium Level 1.9 mg/dL (1.8-2.4) Creatine Kinase 157 U/L (26-192) Creatine Kinase MB (Mass) 6.6 ng/mL (0.0-3.6) Creatine Kinase MB Relative Index 4.2 % (0-4) Troponin I Quantitative < 0.017 ng/mL (0.000-0.055) Laboratory Tests Test 12/23/16 03:00 12/23/16 03:30 12/23/16 12:10 White Blood Count 11.1 x10^3/uL (4.0-11.0) Red Blood Count 4.10 x10^6/uL (3.50-5.40) Hemoglobin 12.5 g/dL (12.0-15.5) Hematocrit 38.6 % (36.0-47.0) Mean Corpuscular Volume 94 fL (79-100) Mean Corpuscular Hemoglobin 31 pg (25-35) Mean Corpuscular Hemoglobin Concent 33 g/dL (31-37) Red Cell Distribution Width 13.1 % (11.5-14.5) Platelet Count 259 x10^3/uL (140-400) Neutrophils (%) (Auto) 74 % (31-73) Lymphocytes (%) (Auto) 20 % (24-48) Monocytes (%) (Auto) 7 % (0-9) Eosinophils (%) (Auto) 0 % (0-3) Basophils (%) (Auto) 0 % (0-3) Neutrophils # (Auto) 8.1 x10^3uL (1.8-7.7) Lymphocytes # (Auto) 2.2 x10^3/uL (1.0-4.8) Monocytes # (Auto) 0.8 x10^3/uL (0.0-1.1) Eosinophils # (Auto) 0.0 x10^3/uL (0.0-0.7) Basophils # (Auto) 0.0 x10^3/uL (0.0-0.2) Sodium Level 139 mmol/L (136-145) Potassium Level 3.4 mmol/L (3.5-5.1) Chloride Level 100 mmol/L (98-107) Carbon Dioxide Level 39 mmol/L (21-32) Anion Gap 0 (6-14) Blood Urea Nitrogen 25 mg/dL (7-20) Creatinine 0.9 mg/dL (0.6-1.0) Estimated GFR (Cockcroft-Gault) 59.9 Glucose Level 86 mg/dL (70-99) Calcium Level 9.1 mg/dL (8.5-10.1) Creatine Kinase 157 U/L (26-192) Creatine Kinase MB (Mass) 6.6 ng/mL (0.0-3.6) Creatine Kinase MB Relative Index 4.2 % (0-4) Troponin I Quantitative < 0.017 ng/mL (0.000-0.055) Medications Current Medications Sodium Chloride 1,000 ml @ 1,000 mls/hr 1X ONCE IV Last administered on t 14:06; Start 12/18/16 at 13:15; Stop 12/18/16 at 14:14; Status DC Albuterol Sulfate (Ventolin Neb Soln) 5 mg 1X ONCE NEB Last administered on 13:42; Start 12/18/16 at 13:15; Stop 12/18/16 at 14:03; Status DC Methylprednisolone Sodium Succinate (SOLU-Medrol 125MG VIAL) 125 mg 1X ONCE IV Last administered on 12/18/16 14:07; Start 12/18/16 at 13:15; Stop 12/18/16 at 14:03; Status DC Benzonatate (Tessalon Perle) 100 mg 1X ONCE PO Last administered on 12/18/16 14:08; Start 12/18/16 at 13:15; Stop 12/18/16 at 14:03; Status DC Levofloxacin/ Dextrose 100 ml @ 100 mls/hr 1X ONCE IV Last administered on 14:07; Start 12/18/16 at 13:45; Stop 12/18/16 at 14:44; Status DC Ondansetron HCl (Zofran) 4 mg PRN Q8HRS PRN IV NAUSEA/VOMITING Last administered on 12/18/16 14:07; Start 12/18/16 at 13:45; Stop 12/19/16 at 13:44; Status DC Albuterol/ Ipratropium (Duoneb) 3 ml Q4HRS W/A NEB Last administered on 11:02; Start 12/18/16 at 18:00 Budesonide (Pulmicort) 0.5 mg RTBID NEB Last administered on 12/23/16 06:56; Start 12/18/16 at 20:00 Levofloxacin (Levaquin) 500 mg DAILY06 PO Last administered on 12/21/16 05:26; Start 12/18/16 at 15:00; Stop 12/21/16 at 13:44; Status DC Guaifenesin (Robitussin Dm) 10 ml PRN Q6HRS PRN PO COUGH Last administered on 14:11; Start 12/18/16 at 14:45 Benzonatate (Tessalon Perle) 100 mg PRN TID PRN PO cough Last administered on 04:37; Start 12/18/16 at 14:45; Stop 12/19/16 at 14:00; Status DC Saliva Substitute (Biotene Moisturizing Mouth) 2 spray PRN Q15MIN PRN PO DRY MOUTH; Start 12/18/16 at 15:45 Prednisone (Prednisone) 40 mg DAILY PO Last administered on 12/23/16 09:55; Start 12/19/16 at 09:00 Saliva Substitute (Biotene Moisturizing Mouth) 2 spray PRN Q15MIN PRN PO DRY MOUTH; Start 12/18/16 at 16:00; Status Cancel Enoxaparin Sodium (Lovenox Per Pharmacy Prophylaxis Dosing) 1 each PRN DAILY PRN MC SEE COMMENTS; Start 12/19/16 at 09:00; Status UNV Enoxaparin Sodium (Lovenox 30mg Syringe) 30 mg Q24H SQ Last administered on 12/22 18:11; Start 12/18/16 at 18:00 Furosemide (Lasix) 40 mg 1X ONCE PO Last administered on 12/18/16 18:07; Start 12/18/16 at 18:00; Stop 12/18/16 at 18:01; Status DC Levothyroxine Sodium (Synthroid) 75 mcg DAILY07 PO Last administered on 08:23; Start 12/19/16 at 07:00 Simvastatin (Zocor) 40 mg QHS PO Last administered on 12/22/16 20:13; Start 12/18/16 at 21:00 Non-Formulary Medication 1 tab WEEKLY PO ; Start 12/25/16 at 09:00; Status UNV Raloxifene HCl (Evista) 60 mg DAILY PO Last administered on 12/23/16 09:54; Start 12/19/16 at 09:00 Albuterol Sulfate (Ventolin Neb Soln) 2.5 mg PRN Q4HRS PRN NEB SHORTNESS OF BREATH Last administered on 12/22/16 11:22; Start 12/19/16 at 08:15 Benzonatate (Tessalon Perle) 100 mg TID PO Last administered on 12/23/16 09:54 ; Start 12/19/16 at 14:00 Furosemide (Lasix) 40 mg DAILY PO Last administered on 12/21/16 09:13; Start at 12:00; Stop 12/21/16 at 11:05; Status DC Famotidine (Pepcid) 20 mg DAILY PO Last administered on 12/23/16 09:55; Start 12/19/16 at 14:30 Acetaminophen (Tylenol) 650 mg PRN Q6HRS PRN PO FEVER Last administered on 18:11; Start 12/19/16 at 16:30 Ondansetron HCl (Zofran) 4 mg PRN Q6HRS PRN IV NAUSEA/VOMITING; Start 12/19/16 at 16:30 Hydralazine HCl (Apresoline) 10 mg PRN Q4HRS PRN IVP ELEVATED BP, SEE COMMENTS ; Start 12/19/16 at 16:30 Docusate Sodium (Colace) 100 mg PRN DAILY PRN PO CONSTIPATION Last administered on 12/23/16 09:55; Start 12/19/16 at 16:30 Fentanyl Citrate (Fentanyl 2ml Vial) 50 mcg PRN Q2HR PRN IV severe pain Last administered on 12/19/16 21:40; Start 12/19/16 at 21:00; Stop 12/20/16 at 09:14; Status DC Fentanyl Citrate (Fentanyl 2ml Vial) 25 mcg PRN Q4HRS PRN IV severe pain; Start 12/20/16 at 21:00; Stop 12/21/16 at 10:14; Status DC Tramadol HCl (Ultram) 50 mg PRN Q6HRS PRN PO PAIN Last administered on 20:28; Start 12/20/16 at 09:15 Levofloxacin (Levaquin) 250 mg DAILY06 PO Last administered on 12/23/16 05:44; Start 12/22/16 at 06:00 Furosemide (Lasix) 20 mg DAILY PO Last administered on 12/23/16 09:55; Start at 15:30 Potassium Chloride (Klor-Con) 40 meq 1X ONCE PO ; Start 12/23/16 at 11:30; Stop 12/23/16 at 11:31; Status DC Active Scripts Active Reported Evista (Raloxifene Hcl) 60 Mg Tablet 1 Tab PO DAILY Amlodipine Besylate 5 Mg Tablet 5 Mg PO DAILY Metoprolol Succinate ( Xl ) (Metoprolol Succinate) 25 Mg Tab.er.24h 2 Tab PO DAILY Lisinopril 40 Mg Tablet 1 Tab PO DAILY Symbicort 160-4.5 Mcg Inhaler (Budesonide/Formoterol Fumarate) 10.2 Gm Hfa.aer.ad 2 Puff IH BID Spiriva (Tiotropium [place]) 18 Mcg Cap.w.dev 1 Cap IH DAILY Levothyroxine Sodium 75 Mcg Tablet 1 Tab PO DAILY Simvastatin 40 Mg Tablet 1 Tab PO QHS Vitals/I & O Vital Sign - Last 24 Hours 12/22/16 12/22/16 12/22/16 12/22/16 14:54 15:41 19:00 19:08 Temp 98.1 98.3 98.1 98.3 Pulse 92 92 Resp 18 20 B/P (MAP) 127/70 (89) 115/61 (79) Pulse Ox 94 98 O2 Delivery Nasal Cannula Nasal Cannula Nasal Cannula Nasal Cannula O2 Flow Rate 1.5 1.0 2.0 1.0 12/22/16 12/22/16 12/23/16 12/23/16 20:00 23:00 06:58 07:00 Temp 98.2 97.8 98.2 97.8 Pulse 95 96 Resp 20 18 B/P (MAP) 123/63 (83) 151/60 (90) Pulse Ox 96 95 92 O2 Delivery Nasal Cannula Nasal Cannula Nasal Cannula Nasal Cannula O2 Flow Rate 1.0 2.0 2.0 2.0 12/23/16 12/23/16 12/23/16 08:00 11:00 11:03 Temp 97.8 97.8 Pulse 84 Resp 18 B/P (MAP) 144/60 (88) Pulse Ox 93 O2 Delivery Nasal Cannula Nasal Cannula Nasal Cannula O2 Flow Rate 1.0 1.5 1.0 Intake and Output 12/22/16 12/22/16 12/23/16 15:00 23:00 07:00 Intake Total 300 ml 388 ml 800 ml Output Total 650 ml 300 ml Balance 300 ml -262 ml 500 ml Nutrition Consultation Dietary Evaluation: Recommendations by RD: Increase Calorie Intake, Protein supplementation Comments: ensure bid Expected Outcomes/Goals: to meet > 75% est nutr needs Malnutrition Findings: Body Fat Depletion (Non Severe: Mild Depletion Weight Status: Appropriate ANEUDY DORSEY MD Dec 23, 2016 13:27
[2016-12-23] MEDS: ACETAMINOPHEN 325 MG TABLET. PO PRN (14:45)
[2016-12-23 14:55] VITALS: BP 140/62
[2016-12-23] MEDS: ENOXAPARIN 30 MG/0.3 ML SYRINGE. SQ SCH (18:25)
[2016-12-23 19:00] VITALS: BP 119/66
[2016-12-23] MEDS: SIMVASTATIN 40 MG TABLET. PO SCH (20:33)
[2016-12-23 23:00] VITALS: BP 106/60
[2016-12-24 04:28] LABS: BASO % 0 % (0-3); EOS % 0 % (0-3); HEMATOCRIT 40.8 % (36.0-47.0); HEMOGLOBIN 13.2 g/dL (12.0-15.5); LYMPH % 17 % (24-48); MEAN CORPUSCULAR HEMOGLOBIN 30 pg (25-35); MEAN CORPUSCULAR HGB CONC 32 g/dL (31-37); MEAN CORPUSCULAR VOLUME 94 fL (79-100); MONO % 6 % (0-9); NEUT % 76 % (31-73); PLATELET COUNT 273 x10^3/uL (140-400); RED BLOOD COUNT 4.33 x10^6/uL (3.50-5.40); RED CELL DISTRIBUTION WIDTH 13.3 % (11.5-14.5); WHITE BLOOD COUNT 11.3 x10^3/uL (4.0-11.0)
[2016-12-24 05:05] LABS: CALCIUM 10.2 mg/dL (8.5-10.1); CREATININE 0.9 mg/dL (0.6-1.0); GFR 59.9; POTASSIUM 4.1 mmol/L (3.5-5.1)
--- NOTE | 2016-12-24 06:24 | EKG ---
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
[2016-12-24 07:00] VITALS: BP 113/70
[2016-12-24] MEDS: IPRATRPIUM/ALBUTEROL 0.5/2.5MG 3 ML NEBU. NEB SCH ×2 (07:12→11:25)
[2016-12-24] MEDS: BUDESONIDE 0.5 MG/2 ML NEBU. NEB SCH (07:12)
[2016-12-24] MEDS: LEVOTHYROXINE 75 MCG TABLET PO SCH (07:46)
[2016-12-24] MEDS: DOCUSATE SODIUM 100 MG CAPSULE. PO PRN (08:31)
[2016-12-24] MEDS: FUROSEMIDE 20 MG TABLET PO SCH (08:32)
[2016-12-24] MEDS: BENZONATATE 100 MG CAPSULE. PO SCH (08:32)
[2016-12-24] MEDS: FAMOTIDINE 20 MG TABLET. PO SCH (08:32)
[2016-12-24] MEDS: RALOXIFENE 60 MG TABLET. PO SCH (08:32)
[2016-12-24] MEDS ORDERED: predniSONE 10 MG TABLET PO SCH (09:00)
--- NOTE | 2016-12-24 09:09 | RAD ---
Indication difficulty breathing. A single view chest was obtained and is compared to a study 4 days earlier. Postoperative changes are again noted. Interstitial prominence seen previously continues to improve compatible with improvement in changes of congestive heart failure seen previously or interstitial inflammatory changes. A new finding is not seen. There is no pleural fluid or pneumothorax. No focal consolidated pneumonia is seen. IMPRESSION: Continued improvement in the appearance of the chest
--- NOTE | 2016-12-24 10:32 | PDOC ---
PULMONARY PROGRESS NOTES Subjective PT FEEL BETTER LESS SOA Vitals Vital Signs Date Time Temp Pulse Resp B/P (MAP) Pulse Ox O2 Delivery O2 Flow Rate FiO2 12/24/16 08:00 Nasal Cannula 1.0 12/24/16 07:18 95 12/24/16 07:00 97.9 88 18 113/70 (84) 97.9 ROS: No Nausea, No Chest Pain, No Abdominal Pain, No Increase Cough Lungs: Other (bl decreased bs) Cardiovascular: S1, S2 Abdomen: Soft Neuro Exam: Alert Extremities: No Edema Skin: Warm Labs Laboratory Tests Test 12/23/16 03:00 12/23/16 03:30 12/23/16 12:10 12/23/16 17:40 White Blood Count 11.1 x10^3/uL (4.0-11.0) Red Blood Count 4.10 x10^6/uL (3.50-5.40) Hemoglobin 12.5 g/dL (12.0-15.5) Hematocrit 38.6 % (36.0-47.0) Mean Corpuscular Volume 94 fL (79-100) Mean Corpuscular Hemoglobin 31 pg (25-35) Mean Corpuscular Hemoglobin Concent 33 g/dL (31-37) Red Cell Distribution Width 13.1 % (11.5-14.5) Platelet Count 259 x10^3/uL (140-400) Neutrophils (%) (Auto) 74 % (31-73) Lymphocytes (%) (Auto) 20 % (24-48) Monocytes (%) (Auto) 7 % (0-9) Eosinophils (%) (Auto) 0 % (0-3) Basophils (%) (Auto) 0 % (0-3) Neutrophils # (Auto) 8.1 x10^3uL (1.8-7.7) Lymphocytes # (Auto) 2.2 x10^3/uL (1.0-4.8) Monocytes # (Auto) 0.8 x10^3/uL (0.0-1.1) Eosinophils # (Auto) 0.0 x10^3/uL (0.0-0.7) Basophils # (Auto) 0.0 x10^3/uL (0.0-0.2) Sodium Level 139 mmol/L (136-145) Potassium Level 3.4 mmol/L (3.5-5.1) Chloride Level 100 mmol/L (98-107) Carbon Dioxide Level 39 mmol/L (21-32) Anion Gap 0 (6-14) Blood Urea Nitrogen 25 mg/dL (7-20) Creatinine 0.9 mg/dL (0.6-1.0) Estimated GFR (Cockcroft-Gault) 59.9 Glucose Level 86 mg/dL (70-99) Calcium Level 9.1 mg/dL (8.5-10.1) Creatine Kinase 157 U/L (26-192) 145 U/L (26-192) Creatine Kinase MB (Mass) 6.6 ng/mL (0.0-3.6) 6.0 ng/mL (0.0-3.6) Creatine Kinase MB Relative Index 4.2 % (0-4) 4.1 % (0-4) Troponin I Quantitative < 0.017 ng/mL (0.000-0.055) < 0.017 ng/mL (0.000-0.055) Test 12/24/16 03:20 White Blood Count 11.3 x10^3/uL (4.0-11.0) Red Blood Count 4.33 x10^6/uL (3.50-5.40) Hemoglobin 13.2 g/dL (12.0-15.5) Hematocrit 40.8 % (36.0-47.0) Mean Corpuscular Volume 94 fL (79-100) Mean Corpuscular Hemoglobin 30 pg (25-35) Mean Corpuscular Hemoglobin Concent 32 g/dL (31-37) Red Cell Distribution Width 13.3 % (11.5-14.5) Platelet Count 273 x10^3/uL (140-400) Neutrophils (%) (Auto) 76 % (31-73) Lymphocytes (%) (Auto) 17 % (24-48) Monocytes (%) (Auto) 6 % (0-9) Eosinophils (%) (Auto) 0 % (0-3) Basophils (%) (Auto) 0 % (0-3) Neutrophils # (Auto) 8.6 x10^3uL (1.8-7.7) Lymphocytes # (Auto) 2.0 x10^3/uL (1.0-4.8) Monocytes # (Auto) 0.7 x10^3/uL (0.0-1.1) Eosinophils # (Auto) 0.0 x10^3/uL (0.0-0.7) Basophils # (Auto) 0.0 x10^3/uL (0.0-0.2) Sodium Level 137 mmol/L (136-145) Potassium Level 4.1 mmol/L (3.5-5.1) Chloride Level 99 mmol/L (98-107) Carbon Dioxide Level 35 mmol/L (21-32) Anion Gap 3 (6-14) Blood Urea Nitrogen 30 mg/dL (7-20) Creatinine 0.9 mg/dL (0.6-1.0) Estimated GFR (Cockcroft-Gault) 59.9 Glucose Level 84 mg/dL (70-99) Calcium Level 10.2 mg/dL (8.5-10.1) Laboratory Tests Test 12/23/16 12:10 12/23/16 17:40 12/24/16 03:20 Creatine Kinase 157 U/L (26-192) 145 U/L (26-192) Creatine Kinase MB (Mass) 6.6 ng/mL (0.0-3.6) 6.0 ng/mL (0.0-3.6) Creatine Kinase MB Relative Index 4.2 % (0-4) 4.1 % (0-4) Troponin I Quantitative < 0.017 ng/mL (0.000-0.055) < 0.017 ng/mL (0.000-0.055) White Blood Count 11.3 x10^3/uL (4.0-11.0) Red Blood Count 4.33 x10^6/uL (3.50-5.40) Hemoglobin 13.2 g/dL (12.0-15.5) Hematocrit 40.8 % (36.0-47.0) Mean Corpuscular Volume 94 fL (79-100) Mean Corpuscular Hemoglobin 30 pg (25-35) Mean Corpuscular Hemoglobin Concent 32 g/dL (31-37) Red Cell Distribution Width 13.3 % (11.5-14.5) Platelet Count 273 x10^3/uL (140-400) Neutrophils (%) (Auto) 76 % (31-73) Lymphocytes (%) (Auto) 17 % (24-48) Monocytes (%) (Auto) 6 % (0-9) Eosinophils (%) (Auto) 0 % (0-3) Basophils (%) (Auto) 0 % (0-3) Neutrophils # (Auto) 8.6 x10^3uL (1.8-7.7) Lymphocytes # (Auto) 2.0 x10^3/uL (1.0-4.8) Monocytes # (Auto) 0.7 x10^3/uL (0.0-1.1) Eosinophils # (Auto) 0.0 x10^3/uL (0.0-0.7) Basophils # (Auto) 0.0 x10^3/uL (0.0-0.2) Sodium Level 137 mmol/L (136-145) Potassium Level 4.1 mmol/L (3.5-5.1) Chloride Level 99 mmol/L (98-107) Carbon Dioxide Level 35 mmol/L (21-32) Anion Gap 3 (6-14) Blood Urea Nitrogen 30 mg/dL (7-20) Creatinine 0.9 mg/dL (0.6-1.0) Estimated GFR (Cockcroft-Gault) 59.9 Glucose Level 84 mg/dL (70-99) Calcium Level 10.2 mg/dL (8.5-10.1) Medications Active Scripts Medications Dose Route/Sig Max Daily Dose Days Date Category Symbicort 160-4.5 Mcg Inhaler (Budesonide/Formoterol Fumarate) 10.2 Gm Hfa.aer.ad 2 Puff IH BID 12/18/16 Reported Spiriva (Tiotropium [place]) 18 Mcg Cap.w.dev 1 Cap IH DAILY 12/18/16 Reported Levothyroxine Sodium 75 Mcg Tablet 1 Tab PO DAILY 12/18/16 Reported Simvastatin 40 Mg Tablet 1 Tab PO QHS 12/18/16 Reported Fosamax (Alendronate Sodium) 70 Mg Tablet 1 Tab PO WEEKLY 12/18/16 Reported Impression . 1. Acute hypoxemic respiratory failure secondary to acute congestive heart failure. 2. Acute congestive heart failure. 3. Mild acute exacerbation of chronic obstructive pulmonary disease. 4. Doubt pneumonia. 5. Possible dysphagia and minimal aspiration. 6. Mukc-ly-hxdpavhd protein malnutrition, present upon admission. ECHO <Conclusion> The left ventricle is normal size. The left ventricular systolic function is normal and the ejection fraction is within normal range. The Ejection Fraction is 60-65%. There is no significant aortic valvular stenosis. Doppler and Color Flow revealed no significant aortic regurgitation. Doppler and Color-flow revealed eccentric mild mitral regurgitation. Doppler and Color Flow revealed mild tricuspid regurgitation. The PA pressure was estimated at 34 mmHg. Plan . 1. diuresis. 2. Repeat chest x-ray 12/23, IMPROVED SUSPECT MOSTLY CHF 3. Continue steroids taper and Levaquin. 4. did not qualify for oxygen 5. Echocardiogram. REPORT NOTED 6. home with ABDIFATAH YOUSSEF MD Dec 24, 2016 10:32
[2016-12-24] MEDS ORDERED: BENZ100C15 PO (10:48)
[2016-12-24] MEDS ORDERED: POTA20TA4 PO (10:48)
[2016-12-24] MEDS ORDERED: LEVO250T25 PO (10:48)
[2016-12-24] MEDS ORDERED: FURO20TA3 PO (10:48)
[2016-12-24] MEDS ORDERED: DOCU-109 PO (10:49)
[2016-12-24 10:54] VITALS: BP 102/45
--- NOTE | 2016-12-24 12:15 | PDOC3 ---
Discharge Summary [facility] Date of Admission: Dec 18, 2016 Discharge Date: Dec 24, 2016 Admitting Diagnosis Acute hypoxic respiratory failure mild acute diastolic grade 1 CHF exacerbation mild COPD exacerbation with bronchitis mild/moderate malnutrition, BMI < 17 weakness/debility xerostomia chest pain with coughing Problems: Final Diagnosis CONSULTS pulm card Brief Hospital Course Ms. Encarnacion is a 81 old F, no home o2, comes for cough, sob, desats, needed NC 2L. pt was treated for bronchitis with levaquin, for copd , grade 1 diastolic CHF exacerbation with lasix 20mg daily, sob better, passed 6min walk, still cough. dc home with lasix, levaquin ,cough meds, cont home breathing treatment dc time 35min General: Alert, Cooperative, No acute distress Heart: Regular rate Lungs: Other (bl decreased bs) Abdomen: Normal bowel sounds, No tenderness Extremities: No clubbing, No edema Skin: No rashes, No significant lesion Problems: Disposition home H CONDITION AT DISCHARGE: Improved Diet regualr Scheduled Benzonatate (Benzonatate), 100 MG PO TID Budesonide/Formoterol Fumarate (Symbicort 160-4.5 Mcg Inhaler), 2 PUFF IH BID, ( Reported) Furosemide (Furosemide), 20 MG PO DAILY Levofloxacin (Levaquin), 250 MG PO DAILY06 Levothyroxine Sodium (Levothyroxine Sodium), 1 TAB PO DAILY, (Reported) Metoprolol Succinate (Metoprolol Succinate ( Xl )), 2 TAB PO DAILY, (Reported) Potassium Chloride (Klor-Con M20), 20 MEQ PO QODAY Raloxifene Hcl (Evista), 1 TAB PO DAILY, (Reported) Simvastatin (Simvastatin), 1 TAB PO QHS, (Reported) Tiotropium [place] (Spiriva), 1 CAP IH DAILY, (Reported) Scheduled PRN Docusate Sodium (Colace), 100 MG PO PRN DAILY PRN for CONSTIPATION Discontinued Medications Alendronate Sodium (Fosamax), 1 TAB PO WEEKLY, (Reported) Amlodipine Besylate (Amlodipine Besylate), 5 MG PO DAILY, (Reported) Lisinopril (Lisinopril), 1 TAB PO DAILY, (Reported) Follow Up pcp in 2 weeks ANEUDY DORSEY MD Dec 24, 2016 12:15
[2016-12-25] MEDS ORDERED: NON FORMULARY ITEM (Alendronate Sodium (Fosamax) 1 TAB) PO SCH (09:00)
[2016-12-26] MEDS ORDERED: POTASSIUM CHLORIDE 20 MEQ TABLET.ER. PO SCH (09:00)
== END 2016-12-24 13:29 | disposition home health service (06) | DRG 291 ==
LOC: ER 12:56 → 5 SOUTH 13:44
PROVIDERS: ADMIT Internal Medicine; ATTEND Internal Medicine
PROC: 5A09357 Assistance with Respiratory Ventilation, Less than 24 Consecutive Hours, Continuous Positive Airway Pressure (ICD-10-PCS; principal; 2016-12-22)
DX: I50.33 Acute on chronic diastolic (congestive) heart failure (principal); J96.21 Acute and chronic respiratory failure with hypoxia; E44.0 Moderate protein-calorie malnutrition; J44.0 Chronic obstructive pulmonary disease with (acute) lower respiratory infection; J44.1 Chronic obstructive pulmonary disease with (acute) exacerbation; I11.0 Hypertensive heart disease with heart failure; E03.9 Hypothyroidism, unspecified; E78.5 Hyperlipidemia, unspecified; K11.7 Disturbances of salivary secretion; J20.9 Acute bronchitis, unspecified; I25.10 Atherosclerotic heart disease of native coronary artery without angina pectoris; M19.90 Unspecified osteoarthritis, unspecified site; I08.1 Rheumatic disorders of both mitral and tricuspid valves; I73.9 Peripheral vascular disease, unspecified; Z87.891 Personal history of nicotine dependence; Z95.1 Presence of aortocoronary bypass graft; Z99.81 Dependence on supplemental oxygen; Z88.5 Allergy status to narcotic agent; Z90.710 Acquired absence of both cervix and uterus; Z90.49 Acquired absence of other specified parts of digestive tract; Z68.20 Body mass index [BMI] 20.0-20.9, adult
CPT/HCPCS: 36415; 36600; 71010; 80048; 80053; 80061; 82553; 82805; 83605; 83735; 83880; 84439; 84443; 84481; 84484; 85007; 85027; 85610; 85730; 93005; 93306; 94250; 94620; 94640; 94760; 96365; 96375; C1887; J1650; J1956; J2405; J2930; J3010; J7030; J7512; J7613; J7620; J7626; 92610; 97116; 97530; 97535; 99285-25

== ENCOUNTER → 2018-06-24 | Outpatient (CLI) | payer MEDICARE, BC ==
[~2018-06-24] MED LIST: ALEN70TA3 PO; AMLO5TAB10 PO; BENZ-8 PO; BUDE10.2 IH; DOCU-109 PO; FURO20TA3 PO; LEVO250T25 PO; LEVO75TA5 PO; LISI-130 PO; METO-239 PO; POTA20TA4 PO; RALO60TA PO; SIMV40TA3 PO; TIOT18CA IH
--- NOTE | 2018-06-24 11:12 | KCIC ---
Bilateral digital screening mammograms: Reason for examination: Routine screening. Comparison is made to previous study dated 03/15/2012. Interpretation was made with the benefit of CAD. The skin and nipples show no abnormalities. No abnormal axillary lymph nodes are seen. The breast parenchyma is extremely dense. (Breast density: Category D.) There are no dominant masses, suspicious calcifications or architectural distortion. Arteriosclerotic vascular calcification is again seen bilaterally. Impression: No evidence of malignancy. Recommend routine screening. Your patient's mammogram demonstrates that she has dense breast tissue (breast density category C or D), which could hide abnormalities, and if she has other risk factors for breast cancer that have been identified, she might benefit from supplemental screening tests that may be suggested by you as her ordering physician. Dense breast tissue, in and of itself, is a relatively common condition. Therefore, this information is not provided to cause undue concern, but rather to raise your awareness and to promote discussion with your patient regarding the presence of other risk factors, in addition to dense breast tissue. Your patient's mammography results will be sent to her. BI-RAD Category 1: Negative. "Our facility is accredited by the [employer] Mammography Program." This patient's information has been entered into a reminder system for the patient to be notified with the results of her examination and a target date for the next mammogram. Electronically signed by: Shanna You MD (06/24/2018 11:07 AM) [id number]
== END | disposition home or self-care (01) ==
LOC: KCIC MAMMO 10:20
PROVIDERS: ATTEND Family Medicine
DX: Z12.31 Encounter for screening mammogram for malignant neoplasm of breast (principal); I70.8 Atherosclerosis of other arteries
CPT/HCPCS: 77067

== ENCOUNTER → 2018-07-29 | Outpatient (CLI) | payer MEDICARE, BC ==
--- NOTE | 2018-07-29 13:25 | KCIC ---
CT of the chest without IV contrast compared to portable chest x-ray dated December 23, 2016 for COPD, asthma, shortness of breath, cough, smoking history of 25 years, quit 2 years ago, open heart surgery. TECHNIQUE: Contiguous helical 5 mm axial images are obtained from the thoracic inlet to the base of diaphragm. Sagittal and coronal reformations are evaluated. FINDINGS: Postsurgical changes of the mediastinum are present. Extensive coronary artery calcifications are seen in multiple distributions. Heart size within normal limits. There is severe ostial atherosclerosis of the proximal left subclavian artery. Similar severe changes are seen at the celiac, superior mesenteric, and bilateral renal arteries. There is a small cyst in the right lung base. There is mild peribronchial thickening bilaterally. There are patchy areas of tree-in-bud type changes mixed with subtle patchy airspace disease seen in the peripheral aspect the right upper lobe posteriorly, which could reflect active bronchiolitis and/or pneumonitis. No areas of dense parenchymal consolidation are identified. Central airways are patent. There are calcified lymph nodes in the mediastinum and right nellie, and there is calcified granuloma in the right midlung. No suspicious mediastinal, hilar, or axillary lymphadenopathy is seen. Evaluation of the upper abdominal organs is limited by lack of IV contrast, however no gross abnormalities visualized organs are identified. There are multilevel degenerative changes at thoracolumbar junction, with no suspicious osteoblastic or osteolytic bone lesions. IMPRESSION: 1. Sparsely scattered regions of tree-in-bud opacification with small areas of airspace disease throughout the right upper lung peripherally, concerning for mild or early bronchiolitis and/or pneumonitis. No areas of focal pneumonic consolidation. 2. Extensive multifocal vasculopathy with severe coarse calcifications at the ostium of the left subclavian artery, celiac artery, superior mesenteric artery, and bilateral renal arteries. These likely producing at least moderate to severe luminal stenoses. If there is clinical concern for vascular insufficiency in any of these distributions, further evaluation with Doppler ultrasound study should be considered. Electronically signed by: Elpidio Vang MD (07/29/2018 1:21 PM) [id number]
== END | disposition home or self-care (01) ==
LOC: KCIC CT 08:52
PROVIDERS: ATTEND Internal Medicine Pulmonary Disease
DX: J44.9 Chronic obstructive pulmonary disease, unspecified (principal); I25.10 Atherosclerotic heart disease of native coronary artery without angina pectoris; J84.10 Pulmonary fibrosis, unspecified; I70.0 Atherosclerosis of aorta; I10 Essential (primary) hypertension
CPT/HCPCS: 71250

== ENCOUNTER → 2019-07-28 | Outpatient (CLI) | payer MEDICARE, BC ==
[~2019-07-28] MED LIST changes: +SIMV40TA18 PO; -SIMV40TA3 PO
--- NOTE | 2019-07-28 13:41 | KCIC ---
CT scan of the chest without contrast 06/29/2019 CLINICAL HISTORY: COPD. Smoking history. TECHNIQUE: Unenhanced, contiguous, 5 mm axial sections were obtained through the chest and upper abdomen. One or more of the following individualized dose reduction techniques were utilized for this study: 1. Automated exposure control. 2. Adjustment of the mA and/or kV according to patient size. 3. Use of iterative reconstruction technique. FINDINGS: Comparison study is dated 07/29/2018. Atherosclerotic calcification of the thoracic aorta and its branches is noted. The patient is post CABG procedure. Extensive coronary artery calcifications are seen. The thoracic aorta is mildly tortuous but tapers normally. Small calcified right hilar and mediastinal lymph nodes are seen. No hilar, mediastinal or axillary lymphadenopathy is noted. Patchy areas of probable scarring are seen involving the right upper lobe, unchanged. Mild emphysematous changes are seen bilaterally. No area of consolidation is noted. No pneumothorax or pleural effusion is seen. Small calcified granulomas are seen involving the right upper lobe, unchanged. No pulmonary mass or significant pulmonary nodule is noted. Images through the upper abdomen demonstrate atherosclerotic calcification of the abdominal aorta and its branches. Mild S-shaped curvature of the thoracolumbar spine is seen. Degenerative changes are seen involving the thoracic and visualized lumbar spine. IMPRESSION: No acute abnormality is seen. Electronically signed by: Nicola Najera MD (07/28/2019 1:38 PM) [facility]
== END | disposition home or self-care (01) ==
LOC: KCIC CT 09:25
PROVIDERS: ATTEND Internal Medicine Pulmonary Disease
DX: I70.0 Atherosclerosis of aorta (principal); J43.9 Emphysema, unspecified; J84.10 Pulmonary fibrosis, unspecified; I25.810 Atherosclerosis of coronary artery bypass graft(s) without angina pectoris; Q25.46 Tortuous aortic arch; I89.8 Other specified noninfective disorders of lymphatic vessels and lymph nodes; M43.8X5 Other specified deforming dorsopathies, thoracolumbar region; M47.815 Spondylosis without myelopathy or radiculopathy, thoracolumbar region; Z95.1 Presence of aortocoronary bypass graft; Z87.891 Personal history of nicotine dependence
CPT/HCPCS: 71250